=== PATIENT | female | born 1940 | race Caucasian/White ===

== ENCOUNTER 2023-07-26 18:21 | Inpatient (IN) | payer MEDICARE, OTHER, SELFPAY ==
[2023-07-26] VITALS (8 sets, daily range): BP systolic 127–177; BP diastolic 49–110; BMI 40.5; BMI 37.7
[2023-07-26 11:58] LABS: % Basophils 0.8 % (0-2); % Eosinophils 1.4 % (0-6); % Immature Granulocytes 0.2 % (0-0.5); % Lymphocytes 19.5 % (20.5-51.1); % Monocytes 11.7 % (1.7-9.3); % Neutrophils 66.4 % (42.2-75.2); Absolute Basophils 0.1 10^3/uL (0-0.2); Absolute Eosinophils 0.1 10^3/uL (0-0.7); Absolute Lymphocytes 1.7 10^3/uL (1.2-3.4); Absolute Neutrophils 5.7 10^3/uL (1.4-6.5); Hematocrit 35.2 % (37.0-47.0); Mean Corp Hgb Conc. 31.3 g/dL (33.0-37.0); Mean Corpuscular Hgb 26.9 pg (27.0-31.0); Mean Corpuscular Volume 86.1 fL (81.0-99.0); Mean Platelet Volume 12.6 fL (7.4-10.4); Nucleated Red Blood Cells % 0 %; Platelet Count 303 10^3/uL (130-400); Red Blood Cell Count 4.09 10^6/uL (4.20-5.40); Red Cell Dist. Width 15.5 % (11.5-14.5); White Blood Cell Count 8.5 10^3/uL (4.8-10.8)
[2023-07-26 12:12] LABS: ALT (SGPT) 23 U/L (0-35); AST (SGOT) 30 U/L (14-36); Albumin 3.7 g/dl (3.5-5.0); Alkaline Phosphatase 90 U/L (38-126); Blood Urea Nitrogen 24 mg/dl (7-17); Calcium 9.7 mg/dl (8.4-10.2); Carbon Dioxide 21 mmol/L (22-30); Chloride 99 mmol/L (98-107); Glucose 418 mg/dl (70-99); Potassium 4.7 mmol/L (3.5-5.1); Sodium 132 mmol/L (135-145); Total Bilirubin 0.6 mg/dl (0.2-1.3); Total Protein 6.8 g/dl (6.3-8.2); eGFR > 60.00
[2023-07-26 12:37] LABS: APTT 22.1 Sec (23.4-35.0); PT 14.2 Sec (11.4-14.6)
[2023-07-26] MEDS: NSS 1000 IV (13:20)
[2023-07-26] MEDS: PROTONIX IV 80 MG IV (14:38)
--- NOTE | 2023-07-26 14:51 | ED.GENMED ---
History of Present Illness
General
Chief Complaint: Rectal Bleeding
Source: patient and family
Exam Limitations: none
Time Seen by Provider: 07/26/23 12:17
Nursing documentation reviewed up to this point in time: agreed with
Travel History
Have you had any contact with someone who has COVID-19?: No
Do you have any symptoms of coronavirus? Fever > 100 degrees, chills, cough, shortness of breath, sore throat, loss of taste or smell, muscle aches, or headache?: No
History of Present Illness
History of Present Illness:
83-year-old female with past medical history of previous stroke A-fib not currently anticoagulated, hypertension hyperlipidemia previous GI bleeds presenting to the emergency department today with concerns of GI bleeding described as red blood
multiple episodes this morning. Has had some abdominal discomfort mainly to the upper abdomen but also at the left lower quadrant. Has had some mild lightheadedness but denies chest pain shortness of breath.
Past History
Past History
ED Past Medical History: Arrthythmia (Atrial fib), HTN, Hypercholesterolemia and Other ( Microscopic Ulcerative colitis)
Social History
Tobacco: Former smoker
Alcohol: None
Drug: None
Personal:
Living: with family
Employment: Retired
Family History
Family History: Other
Review of Systems
Review of Systems
Allergies reviewed?: Yes
All Other Systems: ROS reviewed and negative except as documented in HPI and ROS
Phy Exam
Physical Exam
Physical Exam:
GENERAL: Alert , in no apparent distress
EYE: pupils equal and reactive
NECK: Supple, no significant adenopathy.
ENT: o/p clr, mmm.
CARDIAC: Regular rate and rhythm .
LUNGS: Clear breath sounds bilaterally, no acute respiratory distress, no wheezes/rales/rhonchi
ABDOMEN: Mild tenderness palpation to the epigastric region as well as left lower quadrant otherwise soft benign abdomen no peritoneal signs no guarding
NEUROLOGICAL: Alert and oriented, no focal neuro deficits
SKIN: Warm and dry, skin intact.
MUSCULOSKELETAL: No edema, well perfused.
PSYCH: Normal and appropriate interaction.
Course
Orders/Labs/Results
Orders:
Orders
07/26/23 11:35
Type+Screen Urgent
Complete Blood Count/With Diff Urgent
Comprehensive Metabolic Panel Urgent
PTT Urgent
Prothrombin Time Urgent
07/26/23 12:40
CT Abd/Pel (IV only)-DH only Urgent
Comment:
Reason For Exam: llq pain rectal bleed
07/26/23 12:41
0.9% Sodium Chloride 1000 ml [Nss] 1,000 ml IV BOLUS
07/26/23 12:56
EKG [Electrocardiogram (*1)] Urgent
Reason for Study: Atrial Fibrillation
EKG- Treatment ONCE
07/26/23 14:24
Pantoprazole [Protonix IV] 80 mg IV NOW STA
Abnormal Lab Results
07/26/23
11:35
RBC 4.09 L 10^6/uL
(4.20-5.40)
Hgb 11.0 L g/dL
(12.0-16.0)
Hct 35.2 L %
(37.0-47.0)
MCH 26.9 L pg
(27.0-31.0)
MCHC 31.3 L g/dL
(33.0-37.0)
RDW 15.5 H %
(11.5-14.5)
MPV 12.6 H fL
(7.4-10.4)
Absolute Monos (auto) 1.0 H 10^3/uL
(0.1-0.6)
Lymphocytes % 19.5 L %
(20.5-51.1)
Monocytes % 11.7 H %
(1.7-9.3)
APTT 22.1 L Sec
(23.4-35.0)
Sodium 132 L mmol/L
(135-145)
Carbon Dioxide 21 L mmol/L
(22-30)
BUN 24 H mg/dl
(7-17)
Glucose 418 H mg/dl
(70-99)
07/26/23 11:35
07/26/23 11:35
Vital Signs
Initial and Last Documented VS:
Initial Vital Signs
Temp Pulse Resp Pulse Ox
98.8 F 88 18 96
07/26/23 11:26 07/26/23 11:26 07/26/23 11:26 07/26/23 11:26
Last Documented Vital Signs
Temp Pulse Resp BP Pulse Ox
98.8 F 101 19 171/81 96
07/26/23 11:26 07/26/23 13:00 07/26/23 13:00 07/26/23 13:00 07/26/23 13:00
MDM/Problems Addressed
MDM/Problems Addressed:
83-year-old female presenting to the emergency department today with concerns of abdominal discomfort and rectal bleeding. She describes multiple bowel movements of red blood this morning. On physical examination she has tarry black stool as well
as red blood mixture. She did have some mild abdominal pain to palpation. CT scan performed without emergent findings or surgical pathology. Will admit considering high risk of ongoing GI bleed at this time
*Critical Care Note
Total Time (30-74mins, 75-104mins- exclusive of procedures): Not Applicable
ED Attending Note
-
Portions of this chart may have been created with voice recognition software.� Occasional wrong word or��sound alike� substitutions may have occurred due to the inherent limitations of voice recognition software.
Discharge Plan
Departure
Patient Disposition: Admit
Date of Disposition: 07/26/23
Time of Disposition: 14:53
Admit to: Med/Surg
Admit to doctor: Nahed
Presentation/result/management discussed w/ accepting MD/DO: Hospitalist
Patient with high blood pressure during this ER visit?: No
Condition: Good
Covid-19: Not Applicable
Discharge Problem:
GI bleed
Prescriptions:
No Action
therapeutic multivitamin Tablet
1 tab PO DAILY
flaxseed oil 1,000 mg Capsule
1,000 mg PO DAILY
cholecalciferol (vitamin D3) [Vitamin D3] 25 mcg (1,000 unit) Capsule
25 mcg PO DAILY
omeprazole 20 mg Tablet,Delayed Release (Dr/Ec)
20 mg PO DAILY
metoprolol succinate 25 mg Tablet Extended Release 24 Hr
25 mg PO DAILY Qty: 30 0RF
aspirin 81 mg tablet,chewable
81 mg PO DAILY Qty: 30 0RF
vitamin B complex Tablet
1 tab PO DAILY
sulfasalazine 500 MG tablet
1,000 mg PO BID
carvedilol 6.25 mg Tablet
12.5 mg PO BID
ferrous sulfate 325 mg (65 mg iron) Tablet
325 mg PO Q48H
coenzyme Q10 [CoQ-10] 100 mg Capsule
200 mg PO DAILY
folic acid 800 mcg Tablet
0.8 mg PO DAILY
meloxicam [Mobic] 15 mg Tablet
15 mg PO DAILY
loperamide 2 mg Tablet
2 mg PO TIDPRN PRN (Reason: diarrhea)
bismuth subsalicylate [Pepto-Bismol] 262 mg Tablet,Chewable
2 tab PO BIDPRN PRN (Reason: diarrhea)
valsartan 160 mg Tablet
80 mg PO BID
PreserVision AREDS 2,148 mcg-113 mg-45 mg-17.4mg Tablet
1 tab PO DAILY
Joint Health 40-10-5-3.3 mg Tablet
1 tab PO DAILY
levothyroxine 75 MCG tablet
75 mcg PO DAILY AT 0700 Qty: 30 0RF
duloxetine 20 MG capsule,delayed release(DR/EC)
20 mg PO BID Qty: 60 0RF
Referrals:
Connor Roman MD [Family Provider] -
Interventions
Interventions:
*Risk Screen - Suicide Last Done: 07/26/23 12:54
*General Assessment Last Done: 07/26/23 12:54
*Neglect/Abuse Screening Last Done: 07/26/23 12:54
*ED COVID-19 Vaccine History Last Done: 07/26/23 12:54
RS-Tajvxw-Ymenlyzxgl Assessment Last Done: 07/26/23 12:54
ED- Cardiac Assessment Last Done: 07/26/23 12:56
ED- Pulmonary Assessment Last Done: 07/26/23 12:54
--- NOTE | 2023-07-26 17:47 | HPS.HSE ---
Family Physician
-
Family Physician: Connor Roman
Chief Complaint
-
Rectal bleeding
History of Present Illness
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 Patient describes dark black with mix of bright red blood with stool and straining prior to
presentation. She denies any dizziness or loss of consciousness. She describes mild epigastric pain prior to presentation which resolved with time of my examination. She denies any nausea or vomiting. Denies hematemesis. She had a rectal tumor
resected in March 2023 without complications. She also has a prior history of hemorrhoids. He is on sulfasalazine maintenance for ulcerative colitis. She resumed Mobic about 2 days prior to this presentation given persistent bilateral shoulder
arthritis.
Upon presentation to the emergency room patient hemodynamically stable.
Rectal examination. EGD reviewed black tarry stool heme positive.
Her hemoglobin was found at 11 which is close to her baseline.
Medical History
Past Medical History
Past Medical History: Reports Arrhythmia, CAD, Hypothyroidism and Other (Ulcerative colitis)
Past Surgical History: Reports Other (Rectal tumor resection)
Social History
Tobacco: Non-smoker
Drug: None
Living: With Family
Employment: Retired
Family History
Family History: Not pertinent
Allergies / Home Medications
Allergies reflects when Allergies were last updated in [employer]
Home Medications with original date entered in [employer]
Allergy/Medication List:
Allergies
Allergy/AdvReac Type Severity Reaction Status Date / Time
adhesive Allergy Rash Verified 03/15/23 08:51
amoxicillin [From Augmentin] Allergy DIARRHEA Verified 03/15/23 08:51
clavulanic acid Allergy DIARRHEA Verified 03/15/23 08:51
[From Augmentin]
hydroxychloroquine Allergy rash/'irregular Verified 03/15/23 08:51
[From Plaquenil] heart
rhythm'
latex Allergy Rash Verified 03/15/23 08:51
leflunomide Allergy Rash Verified 03/15/23 08:51
naproxen [From Naprosyn] Allergy Shortness Verified 03/15/23 08:51
of Breath
nickel Allergy Rash Verified 03/15/23 08:51
Home Medications
duloxetine 20 mg capsule,delayed release 20 mg PO BID #60 caps 08/23/21
levothyroxine 75 mcg tablet 75 mcg PO DAILY AT 0700 #30 tabs 08/23/21
cholecalciferol (vitamin D3) 25 mcg (1,000 unit) capsule (Vitamin D3) 25 mcg PO DAILY Supplement 12/04/22
flaxseed oil 1,000 mg capsule 1,000 mg PO DAILY Supplement 12/04/22
omeprazole 20 mg tablet,delayed release 20 mg PO DAILY Gastrointestinal Issue 12/04/22
therapeutic multivitamin 1 tab PO DAILY Supplement 12/04/22
aspirin 81 mg chewable tablet 81 mg PO DAILY #30 tabs 12/08/22
metoprolol succinate 25 mg tablet,extended release 24 hr 25 mg PO DAILY #30 tabs 12/08/22
carvedilol 6.25 mg tablet 12.5 mg PO BID 03/10/23
coenzyme Q10 100 mg capsule (CoQ-10) 200 mg PO DAILY 03/10/23
ferrous sulfate 325 mg (65 mg iron) tablet 325 mg PO Q48H 03/10/23
sulfasalazine 500 mg tablet 1,000 mg PO BID 03/10/23
vitamin B complex 1 tab PO DAILY 03/10/23
bismuth subsalicylate 262 mg chewable tablet (Pepto-Bismol) 2 tab PO BIDPRN PRN diarrhea 07/26/23
cartilage 40 mg-collagen II 10 mg-boron 5 mg-hyaluronate 3.3 mg tablet ([employer] Health) 1 tab PO DAILY 07/26/23
folic acid 800 mcg tablet 0.8 mg PO DAILY 07/26/23
loperamide 2 mg tablet 2 mg PO TIDPRN PRN diarrhea 07/26/23
meloxicam 15 mg tablet 15 mg PO DAILY 07/26/23
valsartan 160 mg tablet 80 mg PO BID 07/26/23
vitamins A,C,C-ekah-izwvfa 2,148 mcg-113 mg-45 mg-17.4 mg tablet (PreserVision AREDS) 1 tab PO DAILY 07/26/23
Review of Systems
-
A 12 point ROS was completed and negative except as noted: Yes
Abdomen/GI: Reports See HPI
Physical Exam
Vital Signs
Vital Signs
Temp Pulse Resp BP Pulse Ox
98.8 F 100 14 153/110 95
07/26/23 11:26 07/26/23 16:45 07/26/23 16:45 07/26/23 16:00 07/26/23 16:45
Physical Exam
General: Well Developed, Well Nourished and No Apparent Distress
HEENT: NormoCephalic, Moist mucous membranes and Atraumatic
Respiratory: Clear
Cardiac: S1/S2 and Regular Rhythm; No Murmur or Rub
GI: Soft, Non Tender, Non Distended and Normal Bowel Sounds; No Organomegaly
Rectal: Deferred by Provider
Musculoskeletal: No Clubbing, No Cyanosis and No Edema
Skin: No Rash
Neuro: Nonfocal/grossly intact
Laboratory Results
-
07/26/23 11:35
07/26/23 11:35
Laboratory Results
PT 14.2 Sec (11.4-14.6) 07/26/23 11:35
INR 1.10 07/26/23 11:35
APTT 22.1 Sec (23.4-35.0) L 07/26/23 11:35
Total Bilirubin 0.6 mg/dl (0.2-1.3) 07/26/23 11:35
AST 30 U/L (14-36) 07/26/23 11:35
ALT 23 U/L (0-35) 07/26/23 11:35
Alkaline Phosphatase 90 U/L (38-126) 07/26/23 11:35
Impression/Plan
-
IMPRESSION:
Rectal bleeding.
Conditions prior to admission:
Status post rectal tumor resection in March 2023.
Ulcerative colitis on sulfasalazine.
Permanent atrial fibrillation not on anticoagulation.
CAD.
Hypothyroidism on replacement.
PLAN:
Presentation with rectal bleeding.
Hemodynamically stable.
Hemoglobin close to baseline at 11.
BUN 24
Self-limited episode of epigastric pain.
CT scan of the abdomen pelvis with IV contrast only with no acute abnormalities
Differential diagnosis less likely upper GI source, although patient recently resumed Mobic, versus lower GI could not exclude hemorrhoidal bleed with straining, versus other.
Given her hemodynamic stability and hemoglobin at the baseline we will admit for close monitoring.
Serial H&H
Type and cross.
IV PPI Protonix 40 mg IV twice daily.
Gastroenterology consultation.
Hold aspirin
Hold Mobic
Clear liquid diet
Ulcerative colitis
Continue sulfasalazine
Permanent atrial fibrillation.
Rate controlled.
Continue metoprolol with caution for hypotension
Not on anticoagulation given prior history of gastrointestinal hemorrhage.
CAD
Hypertension
Continue metoprolol, continue valsartan.
Continue statin
Hold aspirin
Hypothyroidism on replacement.
Full code.
DVT prophylaxis mechanical.
[2023-07-26] MEDS: TOPROL XL 25 MG PO (18:48)
[2023-07-26 19:26] LABS: Hemoglobin 9.3 g/dL (12.0-16.0)
[2023-07-26] MEDS: DIOVAN 80 MG PO (20:32)
[2023-07-26] MEDS: CYMBALTA DELAYED RELEASE 20 MG PO (20:32)
[2023-07-26] MEDS: NSS (PRESERVATIVE FREE) 10 ML IV (20:33)
[2023-07-26] MEDS: FLUSH (NSS) 1 FLUSH IV (20:33)
[2023-07-26] MEDS: PROTONIX IV 40 MG IV (20:33)
[2023-07-26] MEDS: AZULFIDINE 1000 MG PO (20:33)
[2023-07-26] MEDS: TYLENOL 650 MG PO (23:22)
[2023-07-27 03:27] VITALS: BP 140/64
[2023-07-27] MEDS: SYNTHROID 75 MCG PO (05:38)
[2023-07-27 07:00] VITALS: BP 138/63
--- NOTE | 2023-07-27 07:02 | CON.GI ---
Addendum entered and electronically signed by Pili Pal MD 07/27/23 15:36:
I saw and examined the patient.
The KNOWLEDGE ARCHITECT or PA's note was reviewed and I agree with the note.
Comment: 83-year-old female with history of large tubulovillous adenoma noted on colonoscopy in November 2022 status post transanal excision in February, margins clear without any concerning findings with complete removal presenting with painless
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 3 episodes prior to coming to the emergency room. No previous similar episodes. She does take meloxicam for arthritis symptoms. Reports having around 4 bowel movements on average on a daily
basis but never had bleeding like this. In the emergency room, she was noted to have a hemoglobin of 11.0 on admission and now down to 10.3. CT scan angiogram showing diverticulosis without any evidence of active bleeding.
-Rectal bleeding, with history of diverticulosis and also history of tubulovillous adenoma removed transanally with clear margins.
Flexible sigmoidoscopy today showed no evidence of residual polyp in the rectum.
Likely diverticular bleed though there is no evidence of active bleeding noted during the flexible sigmoidoscopy but limited view without any prep and significant old blood.
Monitor H&H, transfuse if needed
If overt active bleeding again, consider CT angiogram versus a full colonoscopy with prep.
N.p.o. for now, if no further bleeding, okay for clear liquid diet.
Will follow
Original Note:
Consultation
-
Date/Time Consultation Requested: 07/26/230
Date/Time Consultation Performed: 07/27/23 0730
Requesting Provider: Satnam Gardner MD
Performing Provider: JAVIER Brannon, Pili Pal MD
Reason for Consultation: rectal bleeding
Medical History
Chief Complaint / HPI
Chief Complaint: rectal bleeding
History of Present Illness:
The patient is an 83year-old female with a past medical history significant for atrial fibrillation off AC, CVA, hypothyroidism, microscopic colitis and possible hx ulcerative colitis years ago with chronic sulfasalazine use, history of anemia with
prior rectal bleeding. In 2022 she was noted with rectal mass and large rectal polyp on colonoscopy in 11/2022. She completed EUS with Dr. Gregorio with T1 vs T2 staging with some post procedure bleeding. She went for transanal excision in February
with bx TV adenoma and no further treatment needed. She has been off NSAID and last week started Meloxicam. She began 5am 07/26 with onset of rectal bleeding passing red blood with several episode prior to admission then noted red blood about 1/4
cup during consult.
At this time patient also admit to some ongoing upper abdominal fullness since surgery. Worse with bending over and difficulty to say what makes pain better. She typically will have about 5-6 soft stools daily. She denies dysphagia, GERD,
diarrhea, constipation or black stool. Hx EGD years ago. She has chronic anemia with hbg on admission 11.0 with drop to 9.3. 07/26-- CT diverticulosis, atrophic kidneys, atypical but stable spleen, lung nodule.
Past Medical History
Past Medical History: Arrhythmias (afib), CVA, Hypothyroidism and Other (microscopic colitis, rectal mass, large rectal/SC polyp s/p polypectomy )
Past Surgical History: Gynecological (tubal ligation), Orthopedic (right humerus ORIF) and Other (atrial appendage clipping @ [facility], transanal excision with TV polyp 02/2023)
Social History
Tobacco: Former Smoker
Alcohol: None
Drug: None
Living: Alone
Employment: Retired
Family History
Family History: Other (paternal uncle with liver CA)
Allergies / Home Medications
Allergy/AdvReac Type Severity Reaction Status Date / Time
adhesive Allergy Rash Verified 03/15/23 08:51
amoxicillin [From Augmentin] Allergy DIARRHEA Verified 03/15/23 08:51
clavulanic acid Allergy DIARRHEA Verified 03/15/23 08:51
[From Augmentin]
hydroxychloroquine Allergy rash/'irregular Verified 03/15/23 08:51
[From Plaquenil] heart
rhythm'
latex Allergy Rash Verified 03/15/23 08:51
leflunomide Allergy Rash Verified 03/15/23 08:51
naproxen [From Naprosyn] Allergy Shortness Verified 03/15/23 08:51
of Breath
nickel Allergy Rash Verified 03/15/23 08:51
Medication Instructions Recorded
duloxetine 20 mg capsule,delayed 20 mg PO BID #60 caps 08/23/21
release
levothyroxine 75 mcg tablet 75 mcg PO DAILY AT 0700 #30 tabs 08/23/21
cholecalciferol (vitamin D3) 25 25 mcg PO DAILY Supplement 12/04/22
mcg (1,000 unit) capsule (Vitamin
D3)
flaxseed oil 1,000 mg capsule 1,000 mg PO DAILY Supplement 12/04/22
omeprazole 20 mg tablet,delayed 20 mg PO DAILY Gastrointestinal 12/04/22
release Issue
therapeutic multivitamin 1 tab PO DAILY Supplement 12/04/22
aspirin 81 mg chewable tablet 81 mg PO DAILY #30 tabs 12/08/22
metoprolol succinate 25 mg 25 mg PO DAILY #30 tabs 12/08/22
tablet,extended release 24 hr
carvedilol 6.25 mg tablet 12.5 mg PO BID 03/10/23
coenzyme Q10 100 mg capsule 200 mg PO DAILY 03/10/23
(CoQ-10)
ferrous sulfate 325 mg (65 mg 325 mg PO Q48H 03/10/23
iron) tablet
sulfasalazine 500 mg tablet 1,000 mg PO BID 03/10/23
vitamin B complex 1 tab PO DAILY 03/10/23
bismuth subsalicylate 262 mg 2 tab PO BIDPRN PRN diarrhea 07/26/23
chewable tablet (Pepto-Bismol)
cartilage 40 mg-collagen II 10 1 tab PO DAILY 07/26/23
mg-boron 5 mg-hyaluronate 3.3 mg
tablet ([facility])
folic acid 800 mcg tablet 0.8 mg PO DAILY 07/26/23
loperamide 2 mg tablet 2 mg PO TIDPRN PRN diarrhea 07/26/23
meloxicam 15 mg tablet 15 mg PO DAILY 07/26/23
valsartan 160 mg tablet 80 mg PO BID 07/26/23
vitamins A,C,T-pock-yyznai 2,148 1 tab PO DAILY 07/26/23
mcg-113 mg-45 mg-17.4 mg tablet
(PreserVision AREDS)
Review of Systems
-
History Source: Patient
EENT: Reports No Symptoms
Respiratory: Reports No Symptoms
Cardiac: Reports No Symptoms
Abdomen/GI: Reports Abdominal Pain (upper fullness ongoing ) and Bloody Stools
: Reports No Symptoms
Musculoskeletal: Reports Other (arthritis with NSAID use)
Skin: Reports No Symptoms
Neurological: Reports No Symptoms
Endocrine: Reports No Symptoms
Hematologic/Lymphatic: Reports Bleeding
Vital Signs
Temp Pulse Resp BP Pulse Ox
97.8 F 94 18 140/64 95
07/27/23 03:27 07/27/23 03:27 07/27/23 03:27 07/27/23 03:27 07/27/23 03:27
Physical Exam
Exam
General: Well Developed, Well Nourished and No Apparent Distress
HEENT: Normocephalic and Anicteric
Respiratory: Clear
Cardiac: Regular Rhythm
GI: Soft, Non Tender and Non Distended
Rectal: Other (stool in comode with red blood no visible stool about 1/4 cup)
Musculoskeletal: No Clubbing and No Cyanosis
Skin: Warm and Dry
Neuro: Awake, Alert and AO x 3
Psych: Calm
Results
WBC 8.5 10^3/uL (4.8-10.8) 07/26/23 11:35
Hgb 9.3 g/dL (12.0-16.0) L 07/26/23 19:01
Hct 35.2 % (37.0-47.0) L 07/26/23 11:35
MCV 86.1 fL (81.0-99.0) 07/26/23 11:35
Plt Count 303 10^3/uL (130-400) 07/26/23 11:35
Absolute Neuts (auto) 5.7 10^3/uL (1.4-6.5) 07/26/23 11:35
PT 14.2 Sec (11.4-14.6) 07/26/23 11:35
INR 1.10 07/26/23 11:35
APTT 22.1 Sec (23.4-35.0) L 07/26/23 11:35
Sodium 132 mmol/L (135-145) L 07/26/23 11:35
Potassium 4.7 mmol/L (3.5-5.1) 07/26/23 11:35
Chloride 99 mmol/L (98-107) 07/26/23 11:35
Carbon Dioxide 21 mmol/L (22-30) L 07/26/23 11:35
BUN 24 mg/dl (7-17) H 07/26/23 11:35
Creatinine 0.9 mg/dL (0.6-1.0) 07/26/23 11:35
Calcium 9.7 mg/dl (8.4-10.2) 07/26/23 11:35
Total Bilirubin 0.6 mg/dl (0.2-1.3) 07/26/23 11:35
AST 30 U/L (14-36) 07/26/23 11:35
ALT 23 U/L (0-35) 07/26/23 11:35
Alkaline Phosphatase 90 U/L (38-126) 07/26/23 11:35
Diagnostic Image Results:
07/26/23 CT A/P
Limited evaluation of intestinal tract without oral contrast, without intestinal obstruction or free air. Marked sigmoid diverticulosis. Please see above comments.
Unremarkable appendix.
Somewhat atrophic kidneys bilaterally with bilateral nonobstructing calculi.
Simple appearing small right renal cyst.
Stable atypical lobulated appearance the superior aspect of the spleen either representing incidental atypical morphology appearance versus stable isodense mass.
Stable 0.4 cm left lower lobe pulmonary nodule
12/06/22 colonoscopy - salguti� � - Preparation of the colon was fair.
�� � � � � � � � � � � - Moderate diverticulosis in the recto-sigmoid colon,
�� � � � � � � � � � � in the sigmoid colon and in the descending colon.
�� � � � � � � � � � � There was narrowing of the colon in association with
�� � � � � � � � � � � the diverticular opening.
�� � � � � � � � � � � - Stool in the entire examined colon.
�� � � � � � � � � � � - One 15 mm polyp in the distal rectum. Injected.
�� � � � � � � � � � � Biopsied.
�� � � � � � � � � � � - Likely malignant tumor in the distal rectum.
�� � � � � � � � � � � Biopsied.-- retal polyp fragement Tubular adenoma, rectal mass superficial fragment of TV adenoma
12/22/22- rectal EUS- Jg -� � - Preparation of the colon was inadequate.
�� � � � � � � � � � � - Rectal mass was visualized endosonographically. This
�� � � � � � � � � � � was staged T1 vs T2, indeterminate.
�� � � � � � � � � � � - No specimens collected
12/22/22- flex sig Jg �� - Preparation of the colon was inadequate.
�� � � � � � � � � � � - Rectal palpable mass/polyp.
�� � � � � � � � � � � - One 20 mm, bleeding polyp in the distal rectum.
�� � � � � � � � � � � Laterally spreading nodular tumor with dominant
�� � � � � � � � � � � nodule. Biopsied.
�� � � � � � � � � � � - One 15 mm polyp in the sigmoid colon, removed with
�� � � � � � � � � � � mucosal resection. Resected and retrieved.
�� � � � � � � � � � � - Mucosal resection was performed. Resection and
�� � � � � � � � � � � retrieval were complete.
bx Tubular adenoma in sigmoid and fragment of TV adenoma rectal mass
12/23/22 flex sig �[place] - Preparation of the colon was poor.
�� � � � � � � � � � � - Polypoid lesion in the distal rectum. previously
�� � � � � � � � � � � biopsied .
�� � � � � � � � � � � - Old Blood in the rectum and in the sigmoid colon.
�� � � � � � � � � � � - A tattoo was seen in the sigmoid colon close to
�� � � � � � � � � � � polypectomy site. No active bleeding noted
�� � � � � � � � � � � - No specimens collected.
03/15/23 OR sunday �(full-thickness) rectal cancer path tubulovillous adenoma
Assessment / Plan
-
The patient is an 83year-old female with a past medical history significant for atrial fibrillation off AC, CVA, hypothyroidism, microscopic colitis and possible hx ulcerative colitis years ago with chronic sulfasalazine use, history of anemia with
prior rectal bleeding. In 2022 she was noted with rectal mass and large rectal polyp on colonoscopy in 11/2022. She completed EUS with Dr. Gregorio with T1 vs T2 staging with some post procedure bleeding. She went for transanal excision in February
with bx TV adenoma and no further treatment needed. She has been off NSAID and last week started Meloxicam. She began 5am 07/26 with onset of rectal bleeding passing red blood with several episode prior to admission then noted red blood about 1/4
cup during consult.
-rectal bleeding
-hx transanal resection of TV polyp 02/2023
--diverticulosis
-hx microscopic colitis and distant hx UC with chronic mesalamine use
-upper abdominal fullness last few months
-chronic anemia
other medica problems:
-arthritis with recent restart on Meloxicam
-afib off AC
-Hx CVA
-Afib.� Had clipping atrial appendage at [facility]
PLAN:
etiology of rectal bleeding related to diverticular bleeding, recurrence of polyps, hemorrhoids vs other
plan for flex sig today
NPO
trend hbg and stool record
will need OP follow up after discharge -- no current GI follow to review ongoing upper abdominal fullness, chronic Mesalamine use etc
discussed NSAID avoidance with hx microscopic colitis
remains on chronic Sulfasalazine
will follow
-
-
Thank you for consultation and allowing me to participate in the patient's care. Please call the human resources compensation analyst GI physician during the after hours with any questions or concerns.
[2023-07-27] MEDS: TOPROL XL 25 MG PO (08:18)
[2023-07-27] MEDS: AZULFIDINE 1000 MG PO ×2 (08:20→20:43)
[2023-07-27] MEDS: CYMBALTA DELAYED RELEASE 20 MG PO ×2 (08:20→20:44)
[2023-07-27] MEDS: DIOVAN 80 MG PO ×2 (08:20→20:43)
[2023-07-27] MEDS: NSS (PRESERVATIVE FREE) 10 ML IV ×2 (08:20→20:42)
[2023-07-27] MEDS: PROTONIX IV 40 MG IV ×2 (08:20→20:42)
[2023-07-27 09:03] LABS: Hemoglobin 10.3 g/dL (12.0-16.0)
[2023-07-27 09:04] LABS: % Basophils 0.7 % (0-2); % Eosinophils 2.6 % (0-6); % Immature Granulocytes 0.3 % (0-0.5); % Lymphocytes 25.7 % (20.5-51.1); % Monocytes 12.8 % (1.7-9.3); % Neutrophils 57.9 % (42.2-75.2); Absolute Basophils 0.1 10^3/uL (0-0.2); Absolute Eosinophils 0.2 10^3/uL (0-0.7); Absolute Lymphocytes 1.8 10^3/uL (1.2-3.4); Absolute Monocytes 0.9 10^3/uL (0.1-0.6); Absolute Neutrophils 3.9 10^3/uL (1.4-6.5); Hematocrit 31.8 % (37.0-47.0); Mean Corp Hgb Conc. 31.4 g/dL (33.0-37.0); Mean Corpuscular Hgb 27.2 pg (27.0-31.0); Mean Corpuscular Volume 86.4 fL (81.0-99.0); Mean Platelet Volume 12.6 fL (7.4-10.4); Nucleated Red Blood Cells % 0 %; Platelet Count 303 10^3/uL (130-400); Red Blood Cell Count 3.68 10^6/uL (4.20-5.40); Red Cell Dist. Width 15.6 % (11.5-14.5); White Blood Cell Count 6.8 10^3/uL (4.8-10.8)
[2023-07-27 09:33] LABS: Blood Urea Nitrogen 16 mg/dl (7-17); Calcium 9.4 mg/dl (8.4-10.2); Carbon Dioxide 23 mmol/L (22-30); Chloride 105 mmol/L (98-107); Estimated Creatinine Clearance 45 ml/min; Glucose 296 mg/dl (70-99); Potassium 4.7 mmol/L (3.5-5.1); Sodium 134 mmol/L (135-145); eGFR > 60.00
[2023-07-27 11:00] VITALS: BP 126/81
--- NOTE | 2023-07-27 14:11 | W.PN.UPDATE ---
Update Note
Progress Note Update
s/p Flexible sigmoidoscopy for rectal bleeding
- Preparation of the colon was poor.
- Multiple large-mouthed and small-mouthed diverticula were found in the recto-sigmoid colon and sigmoid colon. Large amount of old blood noted but could not visualize for the source of bleeding due to poor visualization from blood.
- Blood in the recto-sigmoid colon and in the sigmoid colon.
- Post-polypectomy scar in the distal rectum.
- No specimens collected.
Plan
- NPO.
- Likely diverticular bleeding
- Continue to monitor BM and H/H.
- Transfuse as needed.
- If overt active bleeding, CTA vs colonoscopy with quick prep.
--- NOTE | 2023-07-27 14:46 | PTCARENOTE ---
Pt back on the floor from GI lab. Pt is a+ox3 in no distress, She was bal eto stand and use walker to the bathroom w/o incident.
[2023-07-27 15:00] VITALS: BP 148/52
--- NOTE | 2023-07-27 17:02 | W.PN.HOSP.TC ---
Today's Communication/Plan
-
Monitor hemoglobin
NPO.
IV fluid maintenance
Assessment / Plan
Assessment / Plan
IMPRESSION:
Rectal bleeding.
Conditions prior to admission:
Status post tubulovillous polyp resection in March 2023.
Ulcerative colitis on sulfasalazine.
Permanent atrial fibrillation not on anticoagulation.
CAD.
Hypothyroidism on replacement.
PLAN:
Presentation with rectal bleeding.
Hemodynamically stable.
Acute anemia secondary to blood loss hemoglobin trending down from 12-10
BUN 24
Self-limited episode of epigastric pain.
CT scan of the abdomen pelvis with IV contrast only with no acute abnormalities
Differential diagnosis less likely upper GI source, although patient recently resumed Mobic, versus lower GI could not exclude hemorrhoidal bleed with straining, versus other.
Sigmoidoscopy 07/27 with diverticulosis and blood in the rectosigmoid colon
Monitor closely following hemoglobin 10
If worsening rectal bleeding, consider CT angiogram.
Type and crossed.
Consent for blood transfusion signed.
Keep n.p.o. for now
IV fluids at maintenance
Ulcerative colitis
Continue sulfasalazine
Permanent atrial fibrillation.
Rate controlled.
Continue metoprolol with caution for hypotension
Not on anticoagulation given prior history of gastrointestinal hemorrhage.
CAD
Hypertension
Continue metoprolol, continue valsartan.
Continue statin
Hold aspirin
Hypothyroidism on replacement.
Full code.
DVT prophylaxis mechanical.
Anticipated Discharge: 24 - 48 hours
Subjective/Interval History
-
Date of Service: July 27, 2023
Objective Data
-
Labs:
Laboratory Results
07/27/23 07/27/23
08:32 08:32
WBC 6.8
Hgb 10.0 L 10.3 L
Hct 31.8 L
Plt Count 303
Sodium 134 L
Potassium 4.7
Chloride 105
Carbon Dioxide 23
BUN 16
Creatinine 0.9
Glucose 296 H
Calcium 9.4
Vital Signs:
Vital Signs
Temp Pulse Resp BP Pulse Ox
97.8 F 84 18 148/52 95
07/27/23 15:00 07/27/23 15:00 07/27/23 15:00 07/27/23 15:00 07/27/23 15:00
I&O
07/26/23 07/27/23 07/28/23
06:59 06:59 06:59
Intake Total 480 / 480
Balance 480 / 480
Physical Exam
-
General: Well Developed and No Apparent Distress
HEENT: Normocephalic, Atraumatic and Moist Mucous Membranes
Respiratory: Clear to Auscultation
Cardiac: Regular Rhythm and S1/S2; Negative Murmur, Rub or Gallop
GI: Soft, Nontender, Nondistended and Normal Bowel Sounds; Negative Organomegaly
Rectal: Deferred by Provider
Musculoskeletal: No Clubbing, No Cyanosis and No Edema
Skin: Negative Rash
Neuro: Nonfocal/Grossly Intact
[2023-07-27 19:30] VITALS: BP 126/46
[2023-07-27] MEDS: D5/0.45%NSS with KCL 20 MEQ 1000 IV (19:55)
[2023-07-27 23:38] VITALS: BP 143/57
[2023-07-28] VITALS (7 sets, daily range): BP systolic 130–156; BP diastolic 51–83
[2023-07-28] MEDS: TYLENOL 650 MG PO ×2 (02:01→21:26)
--- NOTE | 2023-07-28 05:00 | PTCARENOTE ---
Pt had a moderate BM with bright red blood in stool. Pt denies dizziness but states she feels weak which has been going on since her admission here. VSS w/o complaints of pain with call edwards within reach.
[2023-07-28] MEDS: SYNTHROID 75 MCG PO (05:55)
[2023-07-28 08:15] LABS: Blood Urea Nitrogen 14 mg/dl (7-17); Calcium 8.8 mg/dl (8.4-10.2); Carbon Dioxide 20 mmol/L (22-30); Chloride 108 mmol/L (98-107); Estimated Creatinine Clearance 45 ml/min; Glucose 291 mg/dl (70-99); Potassium 4.3 mmol/L (3.5-5.1); Sodium 134 mmol/L (135-145); eGFR > 60.00
[2023-07-28 08:26] LABS: % Basophils 0.7 % (0-2); % Eosinophils 2.5 % (0-6); % Immature Granulocytes 0.3 % (0-0.5); % Lymphocytes 22.9 % (20.5-51.1); % Monocytes 12.6 % (1.7-9.3); Absolute Eosinophils 0.2 10^3/uL (0-0.7); Absolute Lymphocytes 1.4 10^3/uL (1.2-3.4); Absolute Monocytes 0.8 10^3/uL (0.1-0.6); Absolute Neutrophils 3.7 10^3/uL (1.4-6.5); Hematocrit 27.8 % (37.0-47.0); Hemoglobin 8.6 g/dL (12.0-16.0); Mean Corp Hgb Conc. 30.9 g/dL (33.0-37.0); Mean Corpuscular Volume 87.4 fL (81.0-99.0); Mean Platelet Volume 12.1 fL (7.4-10.4); Nucleated Red Blood Cells % 0 %; Platelet Count 268 10^3/uL (130-400); Red Blood Cell Count 3.18 10^6/uL (4.20-5.40); Red Cell Dist. Width 15.6 % (11.5-14.5)
--- NOTE | 2023-07-28 09:11 | W.PN.GI.CBS2 ---
Addendum entered and electronically signed by Lucia Hernández MD 07/28/23 16:21:
I saw and examined the patient.
The DERMATOLOGICAL SURGEON's note was reviewed and I agree with the note.
Comment: Had further bleeding since last night repeat CT angiogram again negative for active bleeding she did have a drop in hemoglobin most likely etiology is diverticular bleed. Continue to monitor hemoglobin and if she does have further active
bleeding then will schedule for colonoscopy. Will start her on clear liquids and hopefully if the bleeding resolves could advance diet tomorrow and possible DC over the weekend and follow-up with Dr. Pal as outpatient
Original Note:
Today's Communication / Plan
-
pt with further rectal bleeding this AM
will order CTA
Assessment / Plan
-
The patient is an 83year-old female with a past medical history significant for atrial fibrillation off AC, CVA, hypothyroidism, microscopic colitis and possible hx ulcerative colitis years ago with chronic sulfasalazine use, history of anemia with
prior rectal bleeding. In 2022 she was noted with rectal mass and large rectal polyp on colonoscopy in 11/2022. She completed EUS with Dr. Gregorio with T1 vs T2 staging with some post procedure bleeding. She went for transanal excision in February
with bx TV adenoma and no further treatment needed. She has been off NSAID and last week started Meloxicam. She began 5am 07/26 with onset of rectal bleeding passing red blood with several episode prior to admission then noted red blood about 1/4
cup during consult.
-rectal bleeding
-hx transanal resection of TV polyp 02/2023
--diverticulosis
-hx microscopic colitis and distant hx UC with chronic mesalamine use
-upper abdominal fullness last few months
-chronic anemia
other medical problems:
-arthritis with recent restart on Meloxicam
-afib off AC
-Hx CVA
-Afib.� Had clipping atrial appendage at [facility]
Flexible sigmoidoscopy 07/27/23, Dr. Pal:
Impression:� � � � � � - Preparation of the colon was poor.
�� � � � � � � � � � � - Diverticulosis in the recto-sigmoid colon and in the
�� � � � � � � � � � � sigmoid colon.
�� � � � � � � � � � � - Blood in the recto-sigmoid colon and in the sigmoid
�� � � � � � � � � � � colon.
�� � � � � � � � � � � - Post-polypectomy scar in the distal rectum.
�� � � � � � � � � � � - No specimens collected.
Recommendation:� � � � - NPO.
�� � � � � � � � � � � - Likely diverticular bleeding
�� � � � � � � � � � � - Continue to monitor BM and H/H.
�� � � � � � � � � � � - Transfuse as needed.
�� � � � � � � � � � � - If overt active bleeding, CTA vs colonoscopy with
�� � � � � � � � � � � quick prep.
PLAN:
-etiology of rectal bleeding related to diverticular bleeding, recurrence of polyps, hemorrhoids vs other
-flex sig yesterday showed diverticulosis, large amount of old blood noted in the sigmoid/rectosigmoid colon, did not identify source of bleeding -- suspected diverticular bleed
-1 more episode of rectal bleeding this AM with bowel movement
-Hgb 8.6 (10.3 yesterday)
-hemodynamically stable
-keep NPO
-to consider colonoscopy - will discuss further with Dr. Hernández - vs CTA
Pt will need OP follow up after discharge -- she has no current GI; to review ongoing upper abdominal fullness, chronic Mesalamine use etc
-discussed NSAID avoidance with hx microscopic colitis
-remains on chronic Sulfasalazine
We will follow
Subjective
Subjective
Date of Service: July 28, 2023
One more episode of rectal bleeding with bowel movement this AM.
-no abd pain, n/v, fever or chills
Objective
Data Reviewed
Laboratory Data:
Laboratory Results
07/28/23 08:16
07/28/23 07:35
Laboratory Results
PT 14.2 Sec (11.4-14.6) 07/26/23 11:35
INR 1.10 07/26/23 11:35
APTT 22.1 Sec (23.4-35.0) L 07/26/23 11:35
Total Bilirubin 0.6 mg/dl (0.2-1.3) 07/26/23 11:35
AST 30 U/L (14-36) 07/26/23 11:35
ALT 23 U/L (0-35) 07/26/23 11:35
Alkaline Phosphatase 90 U/L (38-126) 07/26/23 11:35
Vital Signs and I&O:
Vital Signs
Temp Pulse Resp BP Pulse Ox
97.8 F 83 18 130/83 95
07/28/23 08:15 07/28/23 08:15 07/28/23 08:15 07/28/23 08:15 07/28/23 08:15
I&O
07/27/23 07/28/23 07/29/23
06:59 06:59 06:59
Intake Total 480 / 480
Balance 480 / 480
Physical Exam
Physical Exam
GI: Soft, Non Distended, Non Tender and Normal Bowel Sounds
[2023-07-28] MEDS: NSS (PRESERVATIVE FREE) 10 ML IV ×2 (09:15→19:46)
[2023-07-28] MEDS: PROTONIX IV 40 MG IV ×2 (09:16→19:46)
[2023-07-28] MEDS: AZULFIDINE 1000 MG PO ×2 (09:17→19:45)
[2023-07-28] MEDS: DIOVAN 80 MG PO ×2 (09:17→19:45)
[2023-07-28] MEDS: CYMBALTA DELAYED RELEASE 20 MG PO ×2 (09:17→19:45)
[2023-07-28] MEDS: TOPROL XL 25 MG PO (09:17)
[2023-07-28] MEDS: D5/0.45%NSS with KCL 20 MEQ 1000 IV (09:29)
--- NOTE | 2023-07-28 11:24 | PTCARENOTE ---
Received patient this am AAOx3. Pt NPO with IVF infusing without difficulty. Pt Glucose on am BMP was [address] Alexander made aware. IVF put on hold. Pt offered no complaints. Made pt comfortable. Cont to assess patient status.
[2023-07-28 11:37] LABS: Glucose - Point of Care 269 mg/dl (70-99)
[2023-07-28] MEDS: NSS 1000 IV (12:06)
--- NOTE | 2023-07-28 12:39 | PTCARENOTE ---
Pt refusing insulin at this time. She states 'she isn't diabetic'. Pt advised her blood sugar was over [address] Gardner notified.
--- NOTE | 2023-07-28 13:13 | PN.CDI ---
Addendum entered and electronically signed by Satnam Gardner MD 08/01/23 17:07:
Unable to determine
Original Note:
CDI
- -
CDI:
Physician Documentation Request
Admit Date: 07/26/23 18:21
Dear Doctor Kendra,
Clinical Indicators:
Patient admitted with rectal bleeding.
Home medications include Aspirin 81 mg po daily.
2/2 PN, 'Hold aspirin'
Please clarify if there is a the relationship between the rectal bleeding and aspirin use:
Yes, rectal bleeding is related to/associated with/exacerbated by aspirin use.
No, rectal bleeding is not related to/associated with/exacerbated by aspirin use but it is due to ___. (Please specify)
Unable to determine
Use of terms such as suspected, likely, concern for, or probable (associated with a specific diagnosis that is being evaluated, monitored, or treated as if it exists) are acceptable and can be coded in the inpatient setting, when documented at the
time of discharge.
Thank you,
REINALDO Mcgowan RN
CDI Specialist
available via tiger text
Please use your independent medical judgment in providing your response.
[2023-07-28 16:39] LABS: Glucose - Point of Care 246 mg/dl (70-99)
[2023-07-28] MEDS: NOVOLOG FLEXPEN-LOW RESISTANCE SC (16:44)
--- NOTE | 2023-07-28 17:07 | W.PN.HOSP.TC ---
Today's Communication/Plan
-
CT angiogram with no acute bleeding.
Hemoglobin plateaued at 8.6.
Advance to clear liquid diet
Monitor closely
Assessment / Plan
Assessment / Plan
IMPRESSION:
Rectal bleeding.
Conditions prior to admission:
Status post tubulovillous polyp resection in March 2023.
Ulcerative colitis on sulfasalazine.
Permanent atrial fibrillation not on anticoagulation.
CAD.
Hypothyroidism on replacement.
PLAN:
Presentation with rectal bleeding.
Hemodynamically stable.
Acute anemia secondary to blood loss hemoglobin trending down from 12-10
BUN 24
Self-limited episode of epigastric pain.
CT scan of the abdomen pelvis with IV contrast only with no acute abnormalities
Differential diagnosis less likely upper GI source, although patient recently resumed Mobic, versus lower GI could not exclude hemorrhoidal bleed with straining, versus other.
Sigmoidoscopy 07/27 with diverticulosis and blood in the rectosigmoid colon
Most likely diverticular source.
Hemoglobin trending down to 8.6.
Likely passing remnants of blood.
CT angiogram on 07/28 with no acute bleeding.
Advance to clear liquid diet
Monitor closely
Ulcerative colitis
Continue sulfasalazine
Permanent atrial fibrillation.
Rate controlled.
Continue metoprolol with caution for hypotension
Not on anticoagulation given prior history of gastrointestinal hemorrhage.
CAD
Hypertension
Continue metoprolol, continue valsartan.
Continue statin
Hold aspirin
Hypothyroidism on replacement.
Full code.
DVT prophylaxis mechanical.
Anticipated Discharge: 24 - 48 hours
Subjective/Interval History
-
Date of Service: July 28, 2023
Objective Data
-
Labs:
Laboratory Results
07/28/23 07/28/23
07:35 08:16
WBC Cancelled 6.0
Hgb Cancelled 8.6 L
Hct Cancelled 27.8 L
Plt Count Cancelled 268
Sodium 134 L
Potassium 4.3
Chloride 108 H
Carbon Dioxide 20 L
BUN 14
Creatinine 0.9
Glucose 291 H
Calcium 8.8
Vital Signs:
Vital Signs
Temp Pulse Resp BP Pulse Ox
97.6 F 80 18 156/66 95
07/28/23 16:14 07/28/23 16:14 07/28/23 16:14 07/28/23 16:14 07/28/23 09:00
I&O
07/27/23 07/28/23 07/29/23
06:59 06:59 06:59
Intake Total 480 / 480
Balance 480 / 480
Physical Exam
-
General: Well Developed and No Apparent Distress
HEENT: Normocephalic, Atraumatic and Moist Mucous Membranes
Respiratory: Clear to Auscultation
Cardiac: Regular Rhythm and S1/S2; Negative Murmur, Rub or Gallop
GI: Soft, Nontender, Nondistended and Normal Bowel Sounds; Negative Organomegaly
Rectal: Deferred by Provider
Musculoskeletal: No Clubbing, No Cyanosis and No Edema
Skin: Negative Rash
Neuro: Nonfocal/Grossly Intact
[2023-07-28 21:46] LABS: Glucose - Point of Care 227 mg/dl (70-99)
[2023-07-29] VITALS (11 sets, daily range): BP systolic 113–152; BP diastolic 53–69; PULSE 84–89
[2023-07-29] MEDS: SYNTHROID 75 MCG PO (05:58)
[2023-07-29 07:16] LABS: Glucose - Point of Care 251 mg/dl (70-99)
[2023-07-29 07:28] LABS: % Basophils 0.7 % (0-2); % Eosinophils 3.8 % (0-6); % Immature Granulocytes 0.3 % (0-0.5); % Lymphocytes 21.3 % (20.5-51.1); % Monocytes 12.1 % (1.7-9.3); % Neutrophils 61.8 % (42.2-75.2); Absolute Eosinophils 0.2 10^3/uL (0-0.7); Absolute Lymphocytes 1.2 10^3/uL (1.2-3.4); Absolute Monocytes 0.7 10^3/uL (0.1-0.6); Absolute Neutrophils 3.5 10^3/uL (1.4-6.5); Hematocrit 27.3 % (37.0-47.0); Hemoglobin 8.5 g/dL (12.0-16.0); Mean Corp Hgb Conc. 31.1 g/dL (33.0-37.0); Mean Corpuscular Hgb 27.4 pg (27.0-31.0); Mean Corpuscular Volume 88.1 fL (81.0-99.0); Mean Platelet Volume 12.2 fL (7.4-10.4); Nucleated Red Blood Cells % 0 %; Platelet Count 257 10^3/uL (130-400); Red Cell Dist. Width 15.7 % (11.5-14.5); White Blood Cell Count 5.7 10^3/uL (4.8-10.8)
[2023-07-29] MEDS: NOVOLOG FLEXPEN-LOW RESISTANCE SC (07:50)
[2023-07-29 08:06] LABS: Blood Urea Nitrogen 12 mg/dl (7-17); Calcium 8.6 mg/dl (8.4-10.2); Carbon Dioxide 20 mmol/L (22-30); Chloride 110 mmol/L (98-107); Estimated Creatinine Clearance 51 ml/min; Glucose 233 mg/dl (70-99); Potassium 4.5 mmol/L (3.5-5.1); Sodium 135 mmol/L (135-145); eGFR > 60.00
[2023-07-29] MEDS: TOPROL XL 25 MG PO (08:10)
[2023-07-29] MEDS: DIOVAN 80 MG PO ×2 (08:11→20:27)
[2023-07-29] MEDS: AZULFIDINE 1000 MG PO ×2 (08:11→20:27)
[2023-07-29] MEDS: CYMBALTA DELAYED RELEASE 20 MG PO ×2 (08:11→20:27)
[2023-07-29] MEDS: NSS (PRESERVATIVE FREE) 10 ML IV (08:13)
[2023-07-29] MEDS: PROTONIX IV 40 MG IV (08:13)
[2023-07-29] MEDS: TYLENOL 650 MG PO ×3 (08:14→21:59)
--- NOTE | 2023-07-29 09:38 | W.PN.HOSP.TC ---
Addendum entered and electronically signed by Mayela Del Rosario MD 07/29/23 10:32:
1 unit PRBC for symptomatic anemia
Original Note:
Today's Communication/Plan
-
Hb stable, monitor for signs of GI bleeding
advance diet and assess tolerance
PT/OT and orthostatics
Assessment / Plan
Assessment / Plan
IMPRESSION:
Rectal bleeding.
Conditions prior to admission:
Status post tubulovillous polyp resection in March 2023.
Ulcerative colitis on sulfasalazine.
Permanent atrial fibrillation not on anticoagulation.
CAD.
Hypothyroidism on replacement.
PLAN:
Presentation with rectal bleeding.
Hemodynamically stable.
Acute anemia secondary to blood loss hemoglobin trending down from 12-10 to now 8.5 but stable
BUN 24
Self-limited episode of epigastric pain.
CT scan of the abdomen pelvis with IV contrast only with no acute abnormalities
Differential diagnosis less likely upper GI source, although patient recently resumed Mobic, versus lower GI could not exclude hemorrhoidal bleed with straining, versus other.
Sigmoidoscopy 07/27 with diverticulosis and blood in the rectosigmoid colon
Most likely diverticular source.
Hemoglobin trending down to 8.6.
Likely passing remnants of blood but no bleeding overnight
CT angiogram on 07/28 with no acute bleeding.
Advance to low residue diet
if no further bleeding, possible DC this evening
For lightheadedness/dizziness with standing, suspect related to anemia
- PT/OT evals and orthos
Ulcerative colitis - continue sulfasalazine
Permanent atrial fibrillation.
Rate controlled.
Continue metoprolol with caution for hypotension
Not on anticoagulation given prior history of gastrointestinal hemorrhage.
CAD
Essential hypertension
Continue metoprolol, continue valsartan.
Continue statin
Hold aspirin
Hypothyroidism on replacement.
Full code.
DVT prophylaxis mechanical.
Anticipated Discharge: Within 24 hours
Subjective/Interval History
-
Date of Service: July 29, 2023
no further GI bleeding overnight, seen by GI this AM and cleared for LRD
with ambulation feels a bit lightheaded. No CP or SOB.
agrees with PT/OT evals
Objective Data
-
Labs:
Laboratory Results
07/29/23
07:03
WBC 5.7
Hgb 8.5 L
Hct 27.3 L
Plt Count 257
Sodium 135
Potassium 4.5
Chloride 110 H
Carbon Dioxide 20 L
BUN 12
Creatinine 0.8
Glucose 233 H
Calcium 8.6
Vital Signs:
Vital Signs
Temp Pulse Resp BP Pulse Ox
97.4 F 93 18 134/62 96
07/29/23 07:54 07/29/23 07:54 07/29/23 07:54 07/29/23 07:54 07/29/23 07:54
I&O
07/28/23 07/29/23 07/30/23
06:59 06:59 06:59
Intake Total 480 / 480
Balance 480 / 480
Physical Exam
-
General: No Apparent Distress
HEENT: Normocephalic and Atraumatic
Respiratory: Negative Wheezes
Cardiac: Irregular Rhythm
GI: Soft
Genito-urinary: No Costovertebral Tender
Musculoskeletal: No Edema
Neuro: AO x 3
Psych: Calm
Data Reviewed
-
Total Time Spent with Patient (in minutes): 45
Labs: Labs Reviewed by me
--- NOTE | 2023-07-29 09:45 | W.PN.GI.CBS2 ---
Today's Communication / Plan
-
Low residue diet and if she tolerates and no further bleeding okay to DC home later today
Assessment / Plan
-
The patient is an 83year-old female with a past medical history significant for atrial fibrillation off AC, CVA, hypothyroidism, microscopic colitis and possible hx ulcerative colitis years ago with chronic sulfasalazine use, history of anemia with
prior rectal bleeding. In 2022 she was noted with rectal mass and large rectal polyp on colonoscopy in 11/2022. She completed EUS with Dr. Gregorio with T1 vs T2 staging with some post procedure bleeding. She went for transanal excision in February
with bx TV adenoma and no further treatment needed. She has been off NSAID and last week started Meloxicam. She began 5am 07/26 with onset of rectal bleeding passing red blood with several episode prior to admission then noted red blood about 1/4
cup during consult.
-rectal bleeding
-hx transanal resection of TV polyp 02/2023
--diverticulosis
-hx microscopic colitis and distant hx UC with chronic mesalamine use
-upper abdominal fullness last few months
-chronic anemia
other medical problems:
-arthritis with recent restart on Meloxicam
-afib off AC
-Hx CVA
-Afib.� Had clipping atrial appendage at [facility]
Flexible sigmoidoscopy 07/27/23, Dr. Pal:
Impression:� � � � � � - Preparation of the colon was poor.
�� � � � � � � � � � � - Diverticulosis in the recto-sigmoid colon and in the
�� � � � � � � � � � � sigmoid colon.
�� � � � � � � � � � � - Blood in the recto-sigmoid colon and in the sigmoid
�� � � � � � � � � � � colon.
�� � � � � � � � � � � - Post-polypectomy scar in the distal rectum.
�� � � � � � � � � � � - No specimens collected.
Recommendation:� � � � - NPO.
�� � � � � � � � � � � - Likely diverticular bleeding
�� � � � � � � � � � � - Continue to monitor BM and H/H.
�� � � � � � � � � � � - Transfuse as needed.
�� � � � � � � � � � � - If overt active bleeding, CTA vs colonoscopy with
�� � � � � � � � � � � quick prep.
PLAN:
-etiology of rectal bleeding most likley related to diverticular bleeding
-flex sig showed diverticulosis, large amount of old blood noted in the sigmoid/rectosigmoid colon, did not identify source of bleeding -- suspected diverticular bleed
-No further bleeding since last night repeat CT angiogram again negative for active bleeding she did have a drop in hemoglobin now stable
-Will advance diet to low residue diet and if she tolerates and no further bleeding okay to DC home later today
- follow-up with Dr. Pal as outpatient
Subjective
Subjective
Date of Service: July 29, 2023
Had a bowel movement today no further bleeding, hemoglobin remained stable since yesterday
Objective
Data Reviewed
Laboratory Data:
Laboratory Results
07/29/23 07:03
07/29/23 07:03
Laboratory Results
PT 14.2 Sec (11.4-14.6) 07/26/23 11:35
INR 1.10 07/26/23 11:35
APTT 22.1 Sec (23.4-35.0) L 07/26/23 11:35
Total Bilirubin 0.6 mg/dl (0.2-1.3) 07/26/23 11:35
AST 30 U/L (14-36) 07/26/23 11:35
ALT 23 U/L (0-35) 07/26/23 11:35
Alkaline Phosphatase 90 U/L (38-126) 07/26/23 11:35
Vital Signs and I&O:
Vital Signs
Temp Pulse Resp BP Pulse Ox
97.4 F 93 18 134/62 96
07/29/23 07:54 07/29/23 07:54 07/29/23 07:54 07/29/23 07:54 07/29/23 07:54
I&O
07/28/23 07/29/23 07/30/23
06:59 06:59 06:59
Intake Total 480 / 480
Balance 480 / 480
Physical Exam
Physical Exam
Cardiology: Normal Sinus Rhythm
Pulmonary: Clear
GI: Soft, Non Distended, Non Tender and Normal Bowel Sounds
[2023-07-29 11:03] LABS: Glycohemoglobin (HgbA1c) 12.1 % (4.0-5.6)
[2023-07-29 11:40] LABS: Glucose - Point of Care 318 mg/dl (70-99)
[2023-07-29] MEDS: NOVOLOG FLEXPEN-LOW RESISTANCE 4 UNITS SC (12:25)
[2023-07-29] MEDS: NOVOLOG FLEXPEN 4 UNITS SC ×2 (12:26→17:04)
--- NOTE | 2023-07-29 14:37 | CM ---
Met with patient at bedside; initial assessment completed; case management consult completed
Pharmacy verified: [facility]
IMM explained and signed
Patient reports she lives alone in a one floor home located in a [place] community; 4 steps to enter; her bathroom has a stall shower, shower chair, and grab bar; reports that family lives nearby
PLOF: patient reports that she is independent with ADLs; ambulates with cane or walker only when she goes out of the house
SNF/Rehab utilization: 2019, 2020, and 2022; @ [facility] twice; and had a stay @ [facility]
Plan: Disposition to be determined; patient wants to speak with her daughter; she may go home when discharged or stay with family
Home VN offered, patient declined; no skilled PT recommended
[2023-07-29 16:37] LABS: Glucose - Point of Care 232 mg/dl (70-99)
[2023-07-29] MEDS: NOVOLOG FLEXPEN-LOW RESISTANCE 2 UNITS SC (17:04)
--- NOTE | 2023-07-29 18:00 | PTCARENOTE ---
1 Unit of PRBCs infused, after 15 minutes no apparent signs of a transfusion reaction, vital signs remained stable.
[2023-07-29 21:24] LABS: Glucose - Point of Care 333 mg/dl (70-99)
[2023-07-29] MEDS: LANTUS 0.100000000000000006 UNITS SC (21:59)
[2023-07-29 23:14] LABS: Endomysial IgA Antibody Titer <1:10 (<1:10)
[2023-07-30] VITALS (9 sets, daily range): BP systolic 104–167; BP diastolic 53–92; PULSE 69–102; O2SAT 96–100
[2023-07-30 02:02] LABS: tTG IgA Antibody <1.02 FLU (0.00-4.99)
[2023-07-30] MEDS: SYNTHROID 75 MCG PO (06:22)
[2023-07-30 07:12] LABS: Glucose - Point of Care 233 mg/dl (70-99)
[2023-07-30] MEDS: NOVOLOG FLEXPEN SC ×2 (08:19→08:35)
[2023-07-30] MEDS: NOVOLOG FLEXPEN-LOW RESISTANCE 2 UNITS SC ×2 (08:20→17:32)
[2023-07-30] MEDS: TYLENOL 650 MG PO ×3 (08:20→21:45)
[2023-07-30] MEDS: AZULFIDINE 1000 MG PO ×2 (08:22→21:19)
[2023-07-30] MEDS: PROTONIX 40 MG PO (08:23)
[2023-07-30] MEDS: DIOVAN 80 MG PO ×2 (08:24→21:19)
[2023-07-30] MEDS: CYMBALTA DELAYED RELEASE 20 MG PO ×2 (08:24→21:19)
[2023-07-30] MEDS: TOPROL XL 25 MG PO (08:24)
[2023-07-30] MEDS: NOVOLOG FLEXPEN 7 UNITS SC ×3 (08:35→17:31)
--- NOTE | 2023-07-30 08:43 | W.PN.GI.CBS2 ---
Today's Communication / Plan
-
if repeat HB stable post transfusion then okay to Dc today
Assessment / Plan
-
The patient is an 83year-old female with a past medical history significant for atrial fibrillation off AC, CVA, hypothyroidism, microscopic colitis and possible hx ulcerative colitis years ago with chronic sulfasalazine use, history of anemia with
prior rectal bleeding. In 2022 she was noted with rectal mass and large rectal polyp on colonoscopy in 11/2022. She completed EUS with Dr. Gregorio with T1 vs T2 staging with some post procedure bleeding. She went for transanal excision in February
with bx TV adenoma and no further treatment needed. She has been off NSAID and last week started Meloxicam. She began 5am 07/26 with onset of rectal bleeding passing red blood with several episode prior to admission then noted red blood about 1/4
cup during consult.
-rectal bleeding
-hx transanal resection of TV polyp 02/2023
--diverticulosis
-hx microscopic colitis and distant hx UC with chronic mesalamine use
-upper abdominal fullness last few months
-chronic anemia
other medical problems:
-arthritis with recent restart on Meloxicam
-afib off AC
-Hx CVA
-Afib.� Had clipping atrial appendage at [facility]
Flexible sigmoidoscopy 07/27/23, Dr. Pal:
Impression:� � � � � � - Preparation of the colon was poor.
�� � � � � � � � � � � - Diverticulosis in the recto-sigmoid colon and in the
�� � � � � � � � � � � sigmoid colon.
�� � � � � � � � � � � - Blood in the recto-sigmoid colon and in the sigmoid
�� � � � � � � � � � � colon.
�� � � � � � � � � � � - Post-polypectomy scar in the distal rectum.
�� � � � � � � � � � � - No specimens collected.
Recommendation:� � � � - NPO.
�� � � � � � � � � � � - Likely diverticular bleeding
�� � � � � � � � � � � - Continue to monitor BM and H/H.
�� � � � � � � � � � � - Transfuse as needed.
�� � � � � � � � � � � - If overt active bleeding, CTA vs colonoscopy with
�� � � � � � � � � � � quick prep.
PLAN:
-etiology of rectal bleeding most likley related to diverticular bleeding
-flex sig showed diverticulosis, large amount of old blood noted in the sigmoid/rectosigmoid colon, did not identify source of bleeding -- suspected diverticular bleed
-No further active bleeding old blood in stool yesterday
- repeat CT angiogram was negative for active bleeding she did have a drop in hemoglobin now stable, got 1 Unit PRBC 2/3
- low residue diet and if she tolerates and no further bleeding okay to DC home later today
- follow-up with Dr. Pal as outpatient
Subjective
Subjective
Date of Service: July 30, 2023
Had 1 bowel movement yesterday with old blood in it, no further active bleeding. received 1 unit of packed red blood cells yesterday awaiting repeat hemoglobin today
Objective
Data Reviewed
Laboratory Data:
Laboratory Results
PT 14.2 Sec (11.4-14.6) 07/26/23 11:35
INR 1.10 07/26/23 11:35
APTT 22.1 Sec (23.4-35.0) L 07/26/23 11:35
Total Bilirubin 0.6 mg/dl (0.2-1.3) 07/26/23 11:35
AST 30 U/L (14-36) 07/26/23 11:35
ALT 23 U/L (0-35) 07/26/23 11:35
Alkaline Phosphatase 90 U/L (38-126) 07/26/23 11:35
Vital Signs and I&O:
Vital Signs
Temp Pulse Resp BP Pulse Ox
98 F 84 18 147/75 94
07/30/23 07:47 07/30/23 07:47 07/30/23 07:47 07/30/23 07:47 07/30/23 07:47
I&O
07/29/23 07/30/23 07/31/23
06:59 06:59 06:59
Intake Total 480 / 480 740 / 740
Balance 480 / 480 740 / 740
Physical Exam
Physical Exam
Cardiology: Normal Sinus Rhythm
Pulmonary: Clear
GI: Soft, Non Distended, Non Tender and Normal Bowel Sounds
[2023-07-30 08:47] LABS: Hematocrit 30.8 % (37.0-47.0); Hemoglobin 9.8 g/dL (12.0-16.0); Mean Corp Hgb Conc. 31.8 g/dL (33.0-37.0); Mean Corpuscular Hgb 27.1 pg (27.0-31.0); Mean Corpuscular Volume 85.1 fL (81.0-99.0); Mean Platelet Volume 11.6 fL (7.4-10.4); Platelet Count 288 10^3/uL (130-400); Red Blood Cell Count 3.62 10^6/uL (4.20-5.40); Red Cell Dist. Width 15.9 % (11.5-14.5); White Blood Cell Count 7.5 10^3/uL (4.8-10.8)
[2023-07-30 09:06] LABS: Blood Urea Nitrogen 21 mg/dl (7-17); Calcium 9.6 mg/dl (8.4-10.2); Carbon Dioxide 19 mmol/L (22-30); Chloride 107 mmol/L (98-107); Estimated Creatinine Clearance 51 ml/min; Glucose 243 mg/dl (70-99); Potassium 4.7 mmol/L (3.5-5.1); Sodium 135 mmol/L (135-145); eGFR > 60.00
--- NOTE | 2023-07-30 09:06 | W.PN.UPDATE ---
Update Note
Progress Note Update
Discussed with Dr. Del Rosario her blood sugars have been running high so possible DC if BS better controlled. Will sign off and will be available as needed
--- NOTE | 2023-07-30 09:43 | W.PN.HOSP.TC ---
Today's Communication/Plan
-
Newly diagnosed type 2 DM
- A1c 12
- start basal/bolus regimen and titrate
- TRANSPLANT IMMUNOLOGIST consult and adult educator consult for Monday
bleeding stabilized. GI signed off
Assessment / Plan
Assessment / Plan
IMPRESSION:
Rectal bleeding.
Conditions prior to admission:
Status post tubulovillous polyp resection in March 2023.
Ulcerative colitis on sulfasalazine.
Permanent atrial fibrillation not on anticoagulation.
CAD.
Hypothyroidism on replacement.
PLAN:
Presentation with rectal bleeding.
Acute anemia secondary to blood loss hemoglobin trending down from 12-10 to now 8.5 but stable
BUN 24
Self-limited episode of epigastric pain.
CT scan of the abdomen pelvis with IV contrast only with no acute abnormalities
Differential diagnosis less likely upper GI source, although patient recently resumed Mobic, versus lower GI could not exclude hemorrhoidal bleed with straining, versus other.
Sigmoidoscopy 07/27 with diverticulosis and blood in the rectosigmoid colon
CT angiogram on 07/28 with no acute bleeding.
Most likely diverticular source.
Hemoglobin trending down to 8.6. - gave 1 unit for symptomatic anemia and now Hb 9.8
continue regular diet
GI signed off
For lightheadedness/dizziness with standing, suspect related to anemia but also hyperglycemia
- PT/OT evaluation
Newly diagnosed type 2 DM
- A1c 12
- start basal/bolus regimen and titrate
- TRANSPLANT IMMUNOLOGIST consult and adult educator consult for Monday
Ulcerative colitis - continue sulfasalazine
Permanent atrial fibrillation.
Rate controlled.
Continue metoprolol with caution for hypotension
Not on anticoagulation given prior history of gastrointestinal hemorrhage.
CAD
Essential hypertension
Continue metoprolol, continue valsartan.
Continue statin
Hold aspirin
Hypothyroidism on replacement.
Full code.
DVT prophylaxis mechanical.
Anticipated Discharge: Within 24 hours
Subjective/Interval History
-
Date of Service: July 30, 2023
less lightheaded today, no other complaints
Objective Data
-
Labs:
Laboratory Results
07/30/23
08:37
WBC 7.5
Hgb 9.8 L
Hct 30.8 L
Plt Count 288
Sodium 135
Potassium 4.7
Chloride 107
Carbon Dioxide 19 L
BUN 21 H
Creatinine 0.8
Glucose 243 H
Calcium 9.6
Vital Signs:
Vital Signs
Temp Pulse Resp BP Pulse Ox
98 F 84 18 147/75 94
07/30/23 07:47 07/30/23 07:47 07/30/23 07:47 07/30/23 07:47 07/30/23 08:00
I&O
07/29/23 07/30/23 07/31/23
06:59 06:59 06:59
Intake Total 480 / 480 740 / 740
Balance 480 / 480 740 / 740
Physical Exam
-
General: No Apparent Distress
HEENT: Normocephalic and Atraumatic
Respiratory: Negative Wheezes or Rales
Cardiac: Regular Rhythm and S1/S2
GI: Soft
Genito-urinary: No Costovertebral Tender
Musculoskeletal: No Edema
Neuro: AO x 3
Psych: Calm
Data Reviewed
-
Total Time Spent with Patient (in minutes): 45
Labs: Labs Reviewed by me
--- NOTE | 2023-07-30 10:23 | CM ---
Met with patient yesterday to discuss DC plan. Patient declined offer for home health VN
Disposition to be determined; patient wants to speak with her daughter; she may go home when discharged or stay with family
Per Attending, patient has new onset Diabetes; will meet with childbirth educator tomorrow. Before discharge, good idea to discuss VN follow-up @ home.
[2023-07-30 11:22] LABS: Glucose - Point of Care 309 mg/dl (70-99)
[2023-07-30] MEDS: NOVOLOG FLEXPEN-LOW RESISTANCE 4 UNITS SC (12:23)
[2023-07-30 16:46] LABS: Glucose - Point of Care 215 mg/dl (70-99)
[2023-07-30] MEDS: TYLENOL PO (21:19)
[2023-07-30] MEDS: LANTUS 0.149999999999999994 UNITS SC (21:42)
[2023-07-30 21:43] LABS: Glucose - Point of Care 219 mg/dl (70-99)
[2023-07-31] VITALS (8 sets, daily range): BP systolic 112–148; BP diastolic 52–112; PULSE 75–83
[2023-07-31 01:48] LABS: IgA 317 mg/dl (70-400)
[2023-07-31] MEDS: SYNTHROID 75 MCG PO (06:13)
[2023-07-31 07:20] LABS: Hematocrit 32.4 % (37.0-47.0); Hemoglobin 9.9 g/dL (12.0-16.0); Mean Corp Hgb Conc. 30.6 g/dL (33.0-37.0); Mean Corpuscular Hgb 26.8 pg (27.0-31.0); Mean Corpuscular Volume 87.6 fL (81.0-99.0); Mean Platelet Volume 12.3 fL (7.4-10.4); Platelet Count 324 10^3/uL (130-400); White Blood Cell Count 7.8 10^3/uL (4.8-10.8)
--- NOTE | 2023-07-31 07:36 | PN.DE.MGMTRT ---
Insulin Management
- -
07/31/2023: Diabetes Management Consult
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 PMH includes:A- Fib, CAD, HTN, HLD, Hypothyroidism, Ulcerative colitis and newly
Dx T2DM, A1C 12.1%, Cr 0.9, eGFR>60.
She was started on basal/bolus regimen over the weekend, regimen includes AC NovoLog 7 units and Lantus 15 units @ HS.
Her glucose has remained elevated >200, HS glucose of 219-333, FBG 216 this AM, premeal range 215-309, requiring additional 2-4 units of corrective.
Will increase Lantus to 18 units and AC NovoLog to 10 units, 1st dose now.
States she lives alone but Dtr and Grand-Dtr live near by, she is confident that she will be fine managing her diabetes meds at home
Diabetes History
- -
Type of Diabetes: 2 requiring insulin
Pre-Admission Diabetes Regimen
07/30/23
08:37
Creatinine 0.8
Lab Results
Hemoglobin A1c 12.1 % (4.0-5.6) H 07/29/23 07:03
Insulin Pump Settings
IP Diabetes Regimen
07/30/23 07/30/23 07/30/23
08:37 11:21 16:38
Glucose 243 H
POC Glucose 309 H 215 H
07/30/23
21:42
Glucose
POC Glucose 219 H
Meal type: Lunch
Meal type: Breakfast
Amount consumed: 100%
Amount consumed: 100%
Patient Education
[2023-07-31 07:41] LABS: Glucose - Point of Care 232 mg/dl (70-99)
[2023-07-31 07:47] LABS: Blood Urea Nitrogen 20 mg/dl (7-17); Calcium 9.4 mg/dl (8.4-10.2); Carbon Dioxide 24 mmol/L (22-30); Chloride 108 mmol/L (98-107); Estimated Creatinine Clearance 41 ml/min; Glucose 216 mg/dl (70-99); Potassium 4.9 mmol/L (3.5-5.1); Sodium 136 mmol/L (135-145); eGFR 56.25
[2023-07-31] MEDS: NOVOLOG FLEXPEN 10 UNITS SC ×3 (08:54→17:42)
[2023-07-31] MEDS: NOVOLOG FLEXPEN-LOW RESISTANCE 2 UNITS SC (08:55)
[2023-07-31] MEDS: NOVOLOG FLEXPEN SC (08:55)
[2023-07-31] MEDS: PROTONIX 40 MG PO (08:56)
[2023-07-31] MEDS: DIOVAN 80 MG PO ×2 (08:56→20:20)
[2023-07-31] MEDS: CYMBALTA DELAYED RELEASE 20 MG PO ×2 (08:56→20:21)
[2023-07-31] MEDS: AZULFIDINE 1000 MG PO ×2 (08:57→20:21)
[2023-07-31] MEDS: TOPROL XL 25 MG PO (08:57)
[2023-07-31] MEDS: FLUSH (NSS) 1 FLUSH IV (08:58)
[2023-07-31 11:25] LABS: Glucose - Point of Care 288 mg/dl (70-99)
[2023-07-31] MEDS: NOVOLOG FLEXPEN-LOW RESISTANCE 3 UNITS SC (12:11)
--- NOTE | 2023-07-31 15:57 | W.PN.HOSP.TC ---
Today's Communication/Plan
-
Hemoglobin stable with no further clinical evidence of hemorrhage.
New diagnosis of diabetes. Initiated on insulin. Continue adjust dosing for hyperglycemia
Discharge planing
Assessment / Plan
Assessment / Plan
IMPRESSION:
Rectal bleeding.
Conditions prior to admission:
Status post tubulovillous polyp resection in March 2023.
Ulcerative colitis on sulfasalazine.
Permanent atrial fibrillation not on anticoagulation.
CAD.
Hypothyroidism on replacement.
PLAN:
Presentation with rectal bleeding.
Acute anemia secondary to blood loss hemoglobin trending down from 12-10 to now 8.5 but stable
BUN 24
Self-limited episode of epigastric pain.
CT scan of the abdomen pelvis with IV contrast only with no acute abnormalities
Differential diagnosis less likely upper GI source, although patient recently resumed Mobic, versus lower GI could not exclude hemorrhoidal bleed with straining, versus other.
Sigmoidoscopy 07/27 with diverticulosis and blood in the rectosigmoid colon
CT angiogram on 07/28 with no acute bleeding.
Most likely diverticular source.
Hemoglobin trending down to 8.6. - gave 1 unit for symptomatic anemia and now Hb 9.8
continue regular diet
GI signed off
For lightheadedness/dizziness with standing, suspect related to anemia but also hyperglycemia
- PT/OT evaluation
Newly diagnosed type 2 DM
- A1c 12
- start basal/bolus regimen and titrate
- MEDICAL RECORD LIBR[employer] TEACHER consult and high energy forming equipment operator consult for Monday
Ulcerative colitis - continue sulfasalazine
Permanent atrial fibrillation.
Rate controlled.
Continue metoprolol with caution for hypotension
Not on anticoagulation given prior history of gastrointestinal hemorrhage.
CAD
Essential hypertension
Continue metoprolol, continue valsartan.
Continue statin
Hold aspirin
Hypothyroidism on replacement.
Full code.
DVT prophylaxis mechanical.
Anticipated Discharge: 24 - 48 hours
Subjective/Interval History
-
Date of Service: July 31, 2023
Objective Data
-
Labs:
Laboratory Results
07/31/23
06:13
WBC 7.8
Hgb 9.9 L
Hct 32.4 L
Plt Count 324
Sodium 136
Potassium 4.9
Chloride 108 H
Carbon Dioxide 24
BUN 20 H
Creatinine 1.0
Glucose 216 H
Calcium 9.4
Vital Signs:
Vital Signs
Temp Pulse Resp BP Pulse Ox
98.6 F 69 15 140/66 95
07/31/23 11:58 07/31/23 11:58 07/31/23 11:58 07/31/23 12:15 07/31/23 11:58
I&O
07/30/23 07/31/23 08/01/23
06:59 06:59 06:59
Intake Total 740 / 740 900 / 900
Balance 740 / 740 900 / 900
Physical Exam
-
General: Well Developed and No Apparent Distress
HEENT: Normocephalic, Atraumatic and Moist Mucous Membranes
Respiratory: Clear to Auscultation
Cardiac: Regular Rhythm and S1/S2; Negative Murmur, Rub or Gallop
GI: Soft, Nontender, Nondistended and Normal Bowel Sounds; Negative Organomegaly
Rectal: Deferred by Provider
Musculoskeletal: No Clubbing, No Cyanosis and No Edema
Skin: Negative Rash
Neuro: Nonfocal/Grossly Intact
--- NOTE | 2023-07-31 16:46 | PN.DE ---
Diabetes Education
- -
Diabetes Education-
83 year old female with new T2DM diagnosis, A1C of 11.1%
Met with Vandana, for monitor and insulin instructions. States she lives home alone and is independent with all her ADLs.
Vandana has been provided with the Contour Next Ez glucometer. Reviewed proper testing technique for obtaining a blood glucose, testing pattern given ACHS and expected results as noted in take home education booklet. Discussed action of both rapid
acting and long acting insulins as well as symptoms and treatment of hypoglycemia. Aware for meals to check blood glucose, inject NovoLog (short acting insulin) in stomach and eat in 10-20 minutes and Long acting insulin in outer thigh, rotating
sites. Aware to store insulin pens that are not in use in the refrigerator. Instructions with good return demonstration using the glucometer and insulin pen were noted and result of 254 mg/dl 2 hrs after breakfast. Discussed importance of checking
blood sugars 4x/day to assess food/medication effect on his BS, reducing CHO intake and being active.
States she lives alone and it is hard at times to make the right food choices.
Provided information and handout on outpt education classes and encouraged her to call office and register.
Vandana will need RX for test strips and lancets for the Contour Next Ez glucometer, testing 4x/day, NovoLog and Lantus as well as pen needles at discharge.
All questions and concerns were addressed and answered to her satisfaction.
Will f/u with her tomorrow to reinforce education
[2023-07-31 17:08] LABS: Glucose - Point of Care 190 mg/dl (70-99)
[2023-07-31] MEDS: NOVOLOG FLEXPEN-LOW RESISTANCE 1 UNITS SC (17:43)
[2023-07-31] MEDS: TYLENOL 650 MG PO (20:27)
[2023-07-31 21:28] LABS: Glucose - Point of Care 196 mg/dl (70-99)
[2023-07-31] MEDS: LANTUS 0.179999999999999993 UNITS SC (21:31)
[2023-08-01] VITALS (8 sets, daily range): BP systolic 95–138; BP diastolic 45–88; PULSE 73–95
[2023-08-01] MEDS: SYNTHROID 75 MCG PO (05:52)
[2023-08-01 07:40] LABS: Glucose - Point of Care 194 mg/dl (70-99)
--- NOTE | 2023-08-01 08:29 | PN.DE.MGMTRT ---
Insulin Management
- -
07/31/2023: Diabetes Management Consult
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 PMH includes:A- Fib, CAD, HTN, HLD, Hypothyroidism, Ulcerative colitis and newly
Dx T2DM, A1C 12.1%, Cr 0.9, eGFR>60.
She was started on basal/bolus regimen over the weekend, regimen includes AC NovoLog 7 units and Lantus 15 units @ HS.
Her glucose has remained elevated >200, HS glucose of 219-333, FBG 216 this AM, premeal range 215-309, requiring additional 2-4 units of corrective.
Will increase Lantus to 18 units and AC NovoLog to 10 units, 1st dose now.
States she lives alone but Dtr and Grand-Dtr live near by, she is confident that she will be fine managing her diabetes meds at home
08/01/2023 Diabetes Management Follow up
Patient glucose remains elevated with 10 units novolog AC and 18 units lantus @ HS. Fasting glucose this AM 194. Will increase HS lantus to 20 units and add metformin 500 mg BID. With addition of metformin will not increase AC novolog. Will
reinforce insulin administration and glucose monitor.
Diabetes History
- -
Type of Diabetes: 2
Pre-Admission Diabetes Regimen
Lab Results
Hemoglobin A1c 12.1 % (4.0-5.6) H 07/29/23 07:03
Insulin Pump Settings
IP Diabetes Regimen
07/31/23 07/31/23 07/31/23
11:24 17:06 21:26
POC Glucose 288 H 190 H 196 H
08/01/23
07:38
POC Glucose 194 H
Patient Education
[2023-08-01] MEDS: NOVOLOG FLEXPEN-LOW RESISTANCE 1 UNITS SC ×3 (09:19→17:40)
[2023-08-01] MEDS: NOVOLOG FLEXPEN 10 UNITS SC ×3 (09:20→17:41)
--- NOTE | 2023-08-01 09:20 | PTCARENOTE ---
Diabetes Education- Follow up for glucometer and insulin instructions. Vandana did very well with answering questions regarding when to test blood sugar, where to inject, treatment of hypoglycemia. Not so well in the return demonstration of both the
glucometer and insulin pen. For the glucometer, she required step by step instructions,result 229 mg/dl. She had self injected yesterday with the insulin pen set up for lunch and instructions to set up with dinner (using safety pen needle). The
take home pen needle is different and she needed much practice with verbal cues for its use. She practiced x3, then self injected 11 units Novolog in RUQ at 1015. Then continued practicing x 3 for 15 additional minutes until time to eat her
breakfast, 63 gm CHO, asked her to not eat 2 slices of spanish toast.Step by step insulin pen set up directions written for her to follow. Handout with testing times ([facility]) and insulin given for her to keep track of testing and injecting. She has
poor dietary habits at home as she doesn't enjoy cooking, mostly processed foods, no vegetables/salads. Discussed some ways to eat healthier without ignoring her preference. For example, she currently consumes 8 small ice oatmeal cookies for
breakfast, suggest eating 3 of these cookies and adding yogurt/fruit. Suggest buying some frozen vegetables so she can use as little/much as she likes. Suggest cooking a few chicken breasts to last for a few meals. Updates to ORIANA Bosch who will
continue working on her self injecting. At this point, she doesn't seem ready to be discharged safely.
[2023-08-01] MEDS: GLUCOPHAGE 500 MG PO ×2 (09:21→17:40)
[2023-08-01] MEDS: DIOVAN 80 MG PO ×2 (09:21→20:35)
[2023-08-01] MEDS: AZULFIDINE 1000 MG PO ×2 (09:21→20:35)
[2023-08-01] MEDS: CYMBALTA DELAYED RELEASE 20 MG PO ×2 (09:22→20:35)
[2023-08-01] MEDS: PROTONIX 40 MG PO (09:22)
[2023-08-01] MEDS: TOPROL XL 25 MG PO (09:22)
[2023-08-01 13:07] LABS: Glucose - Point of Care 167 mg/dl (70-99)
--- NOTE | 2023-08-01 16:34 | W.PN.HOSP.TC ---
Today's Communication/Plan
-
Hemoglobin stable.
No further bleeding
Insulin regimen being adjusted daily.
Diabetic teaching.
Discharge planing
Assessment / Plan
Assessment / Plan
IMPRESSION:
Rectal bleeding.
Conditions prior to admission:
Status post tubulovillous polyp resection in March 2023.
Ulcerative colitis on sulfasalazine.
Permanent atrial fibrillation not on anticoagulation.
CAD.
Hypothyroidism on replacement.
PLAN:
Presentation with rectal bleeding.
Acute anemia secondary to blood loss hemoglobin trending down from 12-10 to now 8.5 but stable
BUN 24
Self-limited episode of epigastric pain.
CT scan of the abdomen pelvis with IV contrast only with no acute abnormalities
Differential diagnosis less likely upper GI source, although patient recently resumed Mobic, versus lower GI could not exclude hemorrhoidal bleed with straining, versus other.
Sigmoidoscopy 07/27 with diverticulosis and blood in the rectosigmoid colon
CT angiogram on 07/28 with no acute bleeding.
Most likely diverticular source.
Hemoglobin trending down to 8.6. - gave 1 unit for symptomatic anemia and now Hb 9.8
continue regular diet
GI signed off
For lightheadedness/dizziness with standing, suspect related to anemia but also hyperglycemia
- PT/OT evaluation
Newly diagnosed type 2 DM
- A1c 12
- start basal/bolus regimen and titrate
-Insulin dose being adjusted
� Metformin added.
DM teaching
Ulcerative colitis - continue sulfasalazine
Permanent atrial fibrillation.
Rate controlled.
Continue metoprolol with caution for hypotension
Not on anticoagulation given prior history of gastrointestinal hemorrhage.
CAD
Essential hypertension
Continue metoprolol, continue valsartan.
Continue statin
Hold aspirin
Hypothyroidism on replacement.
Full code.
DVT prophylaxis mechanical.
Anticipated Discharge: 24 - 48 hours
Subjective/Interval History
-
Date of Service: August 01, 2023
Objective Data
-
Vital Signs:
Vital Signs
Temp Pulse Resp BP Pulse Ox
98 F 87 20 124/69 94
08/01/23 15:15 08/01/23 15:15 08/01/23 15:15 08/01/23 15:15 08/01/23 15:15
I&O
07/31/23 08/01/23 08/02/23
06:59 06:59 06:59
Intake Total 900 / 900 360 / 360
Balance 900 / 900 360 / 360
Physical Exam
-
General: Well Developed and No Apparent Distress
HEENT: Normocephalic, Atraumatic and Moist Mucous Membranes
Respiratory: Clear to Auscultation
Cardiac: Regular Rhythm and S1/S2; Negative Murmur, Rub or Gallop
GI: Soft, Nontender, Nondistended and Normal Bowel Sounds; Negative Organomegaly
Rectal: Deferred by Provider
Musculoskeletal: No Clubbing, No Cyanosis and No Edema
Skin: Negative Rash
Neuro: Nonfocal/Grossly Intact
--- NOTE | 2023-08-01 16:58 | CM ---
CM following re: d/c planning
Chart reviewed
Pt discharge anticipated within the next day or two
Pt is a new diabetic and resides alone
Pt has been receiving bed side teaching by the clinical systems educator who will follow until d/c
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
IMM was reviewed and provided to the patient by previous CM
Options for home care agencies to be discussed in hopes of placing a referral via care port
PLAN; home with VN
[2023-08-01 17:29] LABS: Glucose - Point of Care 169 mg/dl (70-99)
--- NOTE | 2023-08-01 17:30 | PTCARENOTE ---
patient self demonstrated checking blood sugar with her meter with minimal cueing. self injected insulin using novolog pen with minimal cueing using written step by step instructions. patient feeling more comfortable with both procedures. plan of
care on going.
[2023-08-01] MEDS: TYLENOL 650 MG PO ×2 (17:51→22:07)
[2023-08-01 21:29] LABS: Glucose - Point of Care 104 mg/dl (70-99)
[2023-08-01] MEDS: LANTUS 0.200000000000000011 UNITS SC (21:45)
[2023-08-02 04:03] VITALS: BP 134/59
[2023-08-02] MEDS: SYNTHROID 75 MCG PO (05:58)
[2023-08-02 07:47] LABS: Glucose - Point of Care 187 mg/dl (70-99)
--- NOTE | 2023-08-02 08:13 | PN.DE.MGMTRT ---
Insulin Management
- -
07/31/2023: Diabetes Management Consult
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 PMH includes:A- Fib, CAD, HTN, HLD, Hypothyroidism, Ulcerative colitis and newly
Dx T2DM, A1C 12.1%, Cr 0.9, eGFR>60.
She was started on basal/bolus regimen over the weekend, regimen includes AC NovoLog 7 units and Lantus 15 units @ HS.
Her glucose has remained elevated >200, HS glucose of 219-333, FBG 216 this AM, premeal range 215-309, requiring additional 2-4 units of corrective.
Will increase Lantus to 18 units and AC NovoLog to 10 units, 1st dose now.
States she lives alone but Dtr and Grand-Dtr live near by, she is confident that she will be fine managing her diabetes meds at home
08/01/2023 Diabetes Management Follow up
Patient glucose remains elevated with 10 units novolog AC and 18 units lantus @ HS. Fasting glucose this AM 194. Will increase HS lantus to 20 units and add metformin 500 mg BID. With addition of metformin will not increase AC novolog. Will
reinforce insulin administration and glucose monitor.
08/02/2023 Diabetes Management Follow up
Glucose remains stable 104 to 169. Will make no change to current regimen, metformin 500 mg BID, lantus 20 units @ hs with novolog 10 units AC. Nursing reports that patient has self administered insulin injections with few verbal cues and
demonstrated SBGM with very few verbal cues. Patient has printed instructions, with pictures, for both insulin pen set up and injection steps and glucose monitor.
Diabetes History
- -
Type of Diabetes: 2 requiring insulin
Pre-Admission Diabetes Regimen
Lab Results
Hemoglobin A1c 12.1 % (4.0-5.6) H 07/29/23 07:03
Insulin Pump Settings
IP Diabetes Regimen
08/01/23 08/01/23 08/01/23
13:06 17:27 21:28
POC Glucose 167 H 169 H 104 H
08/02/23
07:36
POC Glucose 187 H
Meal type: Dinner
Meal type: Lunch
Meal type: Breakfast
Amount consumed: 100%
Amount consumed: 100%
Amount consumed: 100%
Patient Education
[2023-08-02] MEDS: TOPROL XL 25 MG PO (08:19)
[2023-08-02] MEDS: PROTONIX 40 MG PO (08:19)
[2023-08-02] MEDS: GLUCOPHAGE 500 MG PO (08:20)
[2023-08-02] MEDS: DIOVAN 80 MG PO (08:20)
[2023-08-02] MEDS: CYMBALTA DELAYED RELEASE 20 MG PO (08:21)
[2023-08-02] MEDS: FLUSH (NSS) 1 FLUSH IV (08:21)
[2023-08-02] MEDS: AZULFIDINE 1000 MG PO (08:21)
[2023-08-02 08:46] VITALS: BP 118/55
[2023-08-02] MEDS: NOVOLOG FLEXPEN-LOW RESISTANCE 1 UNITS SC (09:12)
[2023-08-02] MEDS: NOVOLOG FLEXPEN 10 UNITS SC ×2 (09:13→12:24)
[2023-08-02 10:44] VITALS: BMI 37.7
[2023-08-02 11:00] VITALS: BP 109/58; BP 124/67; PULSE 79; PULSE 90
[2023-08-02 11:32] LABS: Glucose - Point of Care 232 mg/dl (70-99)
[2023-08-02] MEDS: TYLENOL 650 MG PO (11:48)
[2023-08-02] MEDS: NOVOLOG FLEXPEN-LOW RESISTANCE 2 UNITS SC (12:23)
--- NOTE | 2023-08-02 12:42 | W.DS.TRANS ---
DC Summary - Food Cashier
-
Discharge Instructions:
Sleep Apnea Risk Intermediate
Discharge Diagnosis/Procedures Rectal bleeding
Anemia
DM, new diagnosis
Diet Low Residue
Instructions:
Stand-Alone Forms:
Changes to Home Medications: Yes
Discharge Medications:
DC Medications w/original date entered in [employer]
duloxetine 20 mg capsule,delayed release 20 mg PO BID #60 caps 08/23/21
levothyroxine 75 mcg tablet 75 mcg PO DAILY AT 0700 #30 tabs 08/23/21
cholecalciferol (vitamin D3) 25 mcg (1,000 unit) capsule (Vitamin D3) 25 mcg PO DAILY Supplement 12/04/22
flaxseed oil 1,000 mg capsule 1,000 mg PO DAILY Supplement 12/04/22
omeprazole 20 mg tablet,delayed release 20 mg PO DAILY Gastrointestinal Issue 12/04/22
therapeutic multivitamin 1 tab PO DAILY Supplement 12/04/22
metoprolol succinate 25 mg tablet,extended release 24 hr 25 mg PO DAILY #30 tabs 12/08/22
carvedilol 6.25 mg tablet 12.5 mg PO BID Heart Failure 03/10/23
coenzyme Q10 100 mg capsule (CoQ-10) 200 mg PO DAILY Supplement 03/10/23
ferrous sulfate 325 mg (65 mg iron) tablet 325 mg PO Q48H Supplement 03/10/23
sulfasalazine 500 mg tablet 1,000 mg PO BID Gastrointestinal Issue 03/10/23
vitamin B complex 1 tab PO DAILY Supplement 03/10/23
bismuth subsalicylate 262 mg chewable tablet (Pepto-Bismol) 2 tab PO BIDPRN PRN diarrhea 07/26/23
cartilage 40 mg-collagen II 10 mg-boron 5 mg-hyaluronate 3.3 mg tablet (Channel IQ) 1 tab PO DAILY Supplement 07/26/23
folic acid 800 mcg tablet 0.8 mg PO DAILY Supplement 07/26/23
valsartan 160 mg tablet 80 mg PO BID Blood Pressure 07/26/23
vitamins A,C,R-nlgd-akyopt 2,148 mcg-113 mg-45 mg-17.4 mg tablet (PreserVision AREDS) 1 tab PO DAILY Supplement 07/26/23
blood sugar diagnostic (Contour Next Test Strips) #200 ea 08/01/23
insulin aspart U-100 100 unit/mL (3 mL) subcutaneous pen (Novolog FlexPen U-100 Insulin aspart) 10 unit (0.1 mL) SC AC #5 ea 08/01/23
insulin glargine 100 unit/mL (3 mL) subcutaneous pen (Lantus Solostar U-100 Insulin) 20 unit (0.2 mL) SC HS #5 ea 08/01/23
lancets 21 gauge (Color Lancets) #200 ea 08/01/23
metformin 500 mg tablet 500 mg PO BID@0800,1700 #60 tabs 08/01/23
Home Medication Changes
Insulin and metformin added
Pending Results: No
--- NOTE | 2023-08-02 15:27 | CM ---
CM following re: d/c planning
Chart reviewed
Pt is medically stable for d/c
Pt agreed to home care and referral placed with Erica HENDRICKSON
CM spoke with the patient's daughter Tonya to inform of d/c and home care referral placed which she was happy to hear
Pt is a newly diagnosed diabetic and would benefit from SN visits
IMM was reviewed and copy provided
Patient's daughter & son-in -law to transport patient at time of d/c as she will be staying with them in [place] post d/c
No additional d/c needs to note-- Erica referral accepted
PLAN; d/c home with Erica HENDRICKSON
== END 2023-08-02 15:44 | disposition home health service (06) | DRG 378 ==
LOC: 4 EAST ACU 18:21
PROVIDERS: Emergency Medicine; Internal Medicine; ADMITTING PHYSICIAN Internal Medicine; CONSULT PHYSICIAN Internal Medicine Gastroenterology; EMERGENCY PHYSICIAN Emergency Medicine; FAMILY PHYSICIAN Family Medicine
PROC: 0DJD8ZZ Inspection of Lower Intestinal Tract, Via Natural or Artificial Opening Endoscopic (ICD-10-PCS; 2023-07-27)
PROC: 30233L1 Transfusion of Nonautologous Fresh Plasma into Peripheral Vein, Percutaneous Approach (ICD-10-PCS; 2023-07-29)
DX: K57.31 Diverticulosis of large intestine without perforation or abscess with bleeding (principal); D62 Acute posthemorrhagic anemia; K51.90 Ulcerative colitis, unspecified, without complications; I48.21 Permanent atrial fibrillation; E03.9 Hypothyroidism, unspecified; I25.10 Atherosclerotic heart disease of native coronary artery without angina pectoris; Z86.73 Personal history of transient ischemic attack (TIA), and cerebral infarction without residual deficits; Z87.891 Personal history of nicotine dependence; Z79.82 Long term (current) use of aspirin; E11.65 Type 2 diabetes mellitus with hyperglycemia
CPT/HCPCS: 74174; 74177; 80048; 80053; 82784; 82962; 83036; 83516; 85018; 85025; 85027; 85610; 85730; 86231; 86850; 86900; 86901; 86902; 86920; 86922; 93005; 96374; 97116; 97162; 97165; 97530; 99285; P9016; Q9967

== ENCOUNTER 2024-02-08 22:14 | Inpatient (IN) | payer MEDICARE, OTHER, SELFPAY ==
[2024-02-08 19:13] VITALS: BP 147/76
[2024-02-08 19:46] LABS: PT 15.3 Sec (11.4-14.6)
[2024-02-08 19:47] LABS: APTT 29.1 Sec (23.4-35.0)
[2024-02-08 19:48] LABS: % Basophils 0.6 % (0-2); % Eosinophils 1.6 % (0-6); % Immature Granulocytes 0.6 % (0-0.5); % Lymphocytes 16.1 % (20.5-51.1); % Monocytes 14.7 % (1.7-9.3); % Neutrophils 66.4 % (42.2-75.2); Absolute Basophils 0.1 10^3/uL (0-0.2); Absolute Eosinophils 0.2 10^3/uL (0-0.7); Absolute Immature Granulocytes 0.1 10^3/uL (0-0.05); Absolute Lymphocytes 1.7 10^3/uL (1.2-3.4); Absolute Monocytes 1.6 10^3/uL (0.1-0.6); Absolute Neutrophils 7.2 10^3/uL (1.4-6.5); Hematocrit 23.1 % (37.0-47.0); Hemoglobin 6.2 g/dL (12.0-16.0); Mean Corp Hgb Conc. 26.8 g/dL (33.0-37.0); Mean Corpuscular Volume 70.9 fL (81.0-99.0); Mean Platelet Volume 11.6 fL (7.4-10.4); Nucleated Red Blood Cells % 0.6 %; Platelet Count 290 10^3/uL (130-400); Red Blood Cell Count 3.26 10^6/uL (4.20-5.40); Red Cell Dist. Width 20.4 % (11.5-14.5); White Blood Cell Count 10.8 10^3/uL (4.8-10.8)
[2024-02-08 19:49] LABS: ALT (SGPT) 13 U/L (0-35); AST (SGOT) 26 U/L (14-36); Alkaline Phosphatase 85 U/L (38-126); Blood Urea Nitrogen 30 mg/dl (7-17); Calcium 9.6 mg/dl (8.4-10.2); Carbon Dioxide 21 mmol/L (22-30); Chloride 110 mmol/L (98-107); Glucose 119 mg/dl (70-99); Potassium 4.7 mmol/L (3.5-5.1); Sodium 138 mmol/L (135-145); Total Bilirubin 0.3 mg/dl (0.2-1.3); Total Protein 7.2 g/dl (6.3-8.2); eGFR > 60.00
[2024-02-08 20:05] LABS: Anisocytosis 2+; Hypochromasia 2+; Macrocytosis 1+; Normal RBC Morphology No; Ovalocytes 1+; Tear Drop Red Blood Cells 1+
--- NOTE | 2024-02-08 21:03 | ED.GENMED ---
History of Present Illness
General
Chief Complaint: Abnormal Lab Value
Source: patient
Exam Limitations: none
Time Seen by Provider: 02/08/24 20:32
History of Present Illness
History of Present Illness:
This is a 83 year old female that comes in with c/o abnormal labs. States that she went to the food and beverage manager on Monday for a routine check up. States that she had lab drawn and today she was called and told that her hgb is low. Stats that she is not
on any thinners. States that she is SOB with exertion. Denies a fever, chills, chest pain, abd pain, nausea, vomiting diarrhea, headache, dizziness, urinary burning.
Past History
Past History
ED Past Medical History: Arrthythmia (Atrial fib), HTN, Hypercholesterolemia, NIDDM and Other ( Microscopic Ulcerative colitis, Gi bleeding, diverticulosis, )
ED Past Surgical History: Cardiac ('Clamp')
Social History
Tobacco: Former smoker
Alcohol: None
Drug: None
Personal:
Living: with family
Employment: Retired
Family History
Family History: Other
Review of Systems
Review of Systems
All Other Systems: ROS reviewed and negative except as documented in HPI and ROS
Constitutional: Reports no symptoms; Denies fever or chills
EENT: Reports no symptoms
Respiratory: Reports trouble breathing; Denies cough
Cardiac: Reports no symptoms; Denies chest pain
ABD/GI: Reports no symptoms; Denies abdominal pain, nausea, vomiting, diarrhea, bloody stools or black stools
: Reports no symptoms; Denies dysuria, frequency or urgency
Musculoskeletal: Reports no symptoms
Skin: Reports no symptoms
Neurological: Reports no symptoms; Denies dizzy or headache
Psychiatric: Reports no symptoms
Phy Exam
General Physical Exam
General Presentation: no apparent distress
General age: appears stated age
General Skin: warm, dry and pale
General Habitus: elderly
General Mental: alert
General Hydration: dry mucous membranes
ENT Exam
ENT Exam: TM's normal, pharynx normal and neck supple
Eye Exam
Eye Exam: EOMI
Cardiovascular Exam
Cardiovascular Exam: no edema, normal peripheral pulses and irregularly irregular
Pulmonary Exam
Pulmonary Exam: lungs clear, no respiratory distress, no rales, chest non tender, no crackles, no rhonchi, no wheezing and no cough
Gastrointestinal Exam
Gastrointestinal Exam: normal bowel sounds, non tender, soft, no organomegaly, no pulsatile mass, non distended and other (rectal exam hem negative but nothing really noted in the rectal valt)
Musculoskeletal Exam
Musculoskeletal Exam: full ROM and no edema
Skin Exam
Skin Exam: warm/dry, no rash, no petechia and pallor
Psychiatric Exam
Psychiatric Exam: normal mood/affect
Course
Orders/Labs/Results
Orders:
Orders
02/08/24 19:16
EKG [Electrocardiogram (*1)] Urgent
Reason for Study: Fatigue / Weakness
02/08/24 19:17
EKG- Treatment ONCE
02/08/24 19:26
Type+Screen Urgent
Complete Blood Count/With Diff Urgent
Comprehensive Metabolic Panel Urgent
PTT Urgent
Prothrombin Time Urgent
02/08/24 20:57
* Blood Bank Products Urgent
Blood Bank Products: *Packed RBC Leuko(PRBC's)
Quantity: 2
Transfuse Today: Yes
Reason: Anemia
IV Insert/Care/Rem.- Treatment PRN
Abnormal Lab Results
02/08/24
19:26
RBC 3.26 L 10^6/uL
(4.20-5.40)
Hgb 6.2 L* g/dL
(12.0-16.0)
Hct 23.1 L %
(37.0-47.0)
MCV 70.9 L fL
(81.0-99.0)
MCH 19.0 L pg
(27.0-31.0)
MCHC 26.8 L g/dL
(33.0-37.0)
RDW 20.4 H %
(11.5-14.5)
MPV 11.6 H fL
(7.4-10.4)
Abs Immat Gran (auto) 0.1 H 10^3/uL
(0-0.05)
Absolute Neuts (auto) 7.2 H 10^3/uL
(1.4-6.5)
Absolute Monos (auto) 1.6 H 10^3/uL
(0.1-0.6)
Immature Gran % 0.6 H %
(0-0.5)
Lymphocytes % 16.1 L %
(20.5-51.1)
Monocytes % 14.7 H %
(1.7-9.3)
PT 15.3 H Sec
(11.4-14.6)
Chloride 110 H mmol/L
(98-107)
Carbon Dioxide 21 L mmol/L
(22-30)
BUN 30 H mg/dl
(7-17)
Glucose 119 H mg/dl
(70-99)
02/08/24 19:26
02/08/24 19:26
H/H very low (down almost 4 grams since July), anemia, PT 15.3 with INR 1.20, PTT 29.1 chloride slightly elevated. dehydratioin. Glucose nonfasting.
Vital Signs
Initial and Last Documented VS:
Initial Vital Signs
Temp Pulse Resp BP Pulse Ox
98.6 F 62 16 147/76 95
02/08/24 19:13 02/08/24 19:13 02/08/24 19:13 02/08/24 19:13 02/08/24 19:13
Last Documented Vital Signs
Temp Pulse Resp BP Pulse Ox
98.6 F 62 16 147/76 95
02/08/24 19:13 02/08/24 19:13 02/08/24 19:13 02/08/24 19:13 02/08/24 19:13
MDM/Problems Addressed
Differential Diagnosis Includes:
abnormal labs,
MDM/Problems Addressed:
This is a 83 year old female that comes in with c/o abnormal labs. Patient has blood work done for the food and beverage manager on Monday. Patient was called and told that her Hgb was low. Patient states that she is SOB with activity.
Will check labs. Explained to patient that her Hgb is very low and she will need blood. Will admit patient for further evaluation. Hospitalist notified.
Chronic conditions affecting care:
Gi bleeding, diverticulosis,
Acute Exacerbation and/or Progression of Chronic Illness:
NA
*EKG
Interpreted by ED Provider?: Yes
Heart Rate: 85
Rate: normal
Rhythm: a-fib
[place]: normal axis
QRS Pattern: normal QRS
Ischemia: no ischemia
*Critical Care Note
Total Time (30-74mins, 75-104mins- exclusive of procedures): Not Applicable
ED Attending Note
-
Portions of this chart may have been created with voice recognition software.� Occasional wrong word or��sound alike� substitutions may have occurred due to the inherent limitations of voice recognition software.
Discharge Plan
Departure
Patient Disposition: Admit
Date of Disposition: 02/08/24
Time of Disposition: 21:12
Admit to: Telemetry
Presentation/result/management discussed w/ accepting MD/DO: Hospitalist
Patient with high blood pressure during this ER visit?: Yes
Condition: Good
Covid-19: Not Applicable
Discharge Problem:
Low hemoglobin, Anemia
Prescriptions:
No Action
therapeutic multivitamin Tablet
1 tab PO DAILY
flaxseed oil 1,000 mg Capsule
1,000 mg PO DAILY
cholecalciferol (vitamin D3) [Vitamin D3] 25 mcg (1,000 unit) Capsule
25 mcg PO DAILY
omeprazole 20 mg Tablet,Delayed Release (Dr/Ec)
20 mg PO DAILY
metoprolol succinate 25 mg Tablet Extended Release 24 Hr
25 mg PO DAILY Qty: 30 0RF
vitamin B complex Tablet
1 tab PO DAILY
sulfasalazine 500 MG tablet
1,000 mg PO BID
carvedilol 6.25 mg Tablet
12.5 mg PO BID
ferrous sulfate 325 mg (65 mg iron) Tablet
325 mg PO Q48H
coenzyme Q10 [CoQ-10] 100 mg Capsule
200 mg PO DAILY
folic acid 800 mcg Tablet
0.8 mg PO DAILY
bismuth subsalicylate [Pepto-Bismol] 262 mg Tablet,Chewable
2 tab PO BIDPRN PRN (Reason: diarrhea)
valsartan 160 mg Tablet
80 mg PO BID
PreserVision AREDS 2,148 mcg-113 mg-45 mg-17.4mg Tablet
1 tab PO DAILY
[facility] 40-10-5-3.3 mg Tablet
1 tab PO DAILY
metformin 500 mg Tablet
500 mg PO BID@0800,1700 Qty: 60 0RF
Rx Instructions:
E11.65
(DME) Contour Next Test Strips Strip
Qty: 200 0RF
Rx Instructions:
Test blood sugar before breakfast lunch and dinner and bedtime As Directed
E11.65
insulin aspart U-100 [Novolog FlexPen U-100 Insulin] 100 unit/mL (3 mL) Insulin Pen
10 unit SC AC Qty: 5 0RF
Rx Instructions:
E11.65
insulin glargine [Lantus Solostar U-100 Insulin] 100 unit/mL (3 mL) Insulin Pen
20 unit SC HS Qty: 5 0RF
Rx Instructions:
E11.65
(DME) lancets [Color Lancets] 21 gauge Misc
Qty: 200 0RF
Rx Instructions:
Test blood sugar before breakfast, lunch dinner and bedtime As Directed E11.65
levothyroxine 75 MCG tablet
75 mcg PO DAILY AT 0700 Qty: 30 0RF
duloxetine 20 MG capsule,delayed release(DR/EC)
20 mg PO BID Qty: 60 0RF
Referrals:
Connor Roman MD [Family Provider] -
Interventions
Interventions:
*Risk Screen - Suicide Last Done: 02/08/24 19:13
*Neglect/Abuse Screening Last Done: 02/08/24 19:13
Discharge Date and Time
Print Language: ICELANDIC
[2024-02-08 21:24] VITALS: BP 140/64
--- NOTE | 2024-02-08 21:35 | HPS.HSE ---
Family Physician
-
Family Physician: Connor Roman
Chief Complaint
-
Shortness of breath, outpatient blood anemia
History of Present Illness
83-year-old female complaining of abnormal labs that she had drawn 6 days ago she was sent to the ER for low hemoglobin. In the ER she was noted have hemoglobin of 6.2. She does complain of shortness breath with exertion. She denies fever,
chills, chest pain, abdominal pain, nausea, vomiting diarrhea, headache, urinary symptoms she denies blood in stool or urine.
Past medical history diverticular bleed with acute blood loss anemia, iron deficiency anemia, DM2 new diagnosis July 2023, HTN, RA, ulcerative colitis, permanent A-fib, CAD, hypothyroidism, obesity
Medical History
Past Medical History
Past Medical History: Reports Other
Additional Past Medical History:
diverticular bleed with acute blood loss anemia
GERD
DM2 new diagnosis July 2023
HTN
RA
ulcerative colitis
permanent A-fib
CAD
hypothyroidism
Deficiency anemia history of prior transfusion 2022
CVA June 2020
OA
Past Surgical History: Reports Other
Additional Past Surgical History:
Lumbar spinal fusion
Right thoracotomy
D&C
Bone fusion right wrist
Right humerus fracture repair July 2020
Loop recorder placement
Cataract extraction
Apical appendage clip
Social History
Tobacco: Non-smoker
Alcohol: None
Drug: None
Personal: Single
Living: With Family
Employment: Retired
Family History
Family History: Not pertinent
Allergies / Home Medications
Allergies reflects when Allergies were last updated in [employer].
Home Medications with original date entered in [facility]
Allergy/Medication List:
Allergies
Allergy/AdvReac Type Severity Reaction Status Date / Time
adhesive Allergy Rash Verified 02/08/24 19:13
amoxicillin [From Augmentin] Allergy DIARRHEA Verified 02/08/24 19:13
clavulanic acid Allergy DIARRHEA Verified 02/08/24 19:13
[From Augmentin]
hydroxychloroquine Allergy rash/'irregular Verified 02/08/24 19:13
[From Plaquenil] heart
rhythm'
latex Allergy Rash Verified 02/08/24 19:13
leflunomide Allergy Rash Verified 02/08/24 19:13
naproxen [From Naprosyn] Allergy Shortness Verified 02/08/24 19:13
of Breath
nickel Allergy Rash Verified 02/08/24 19:13
Home Medications
duloxetine 20 mg capsule,delayed release 20 mg PO BID #60 caps 08/23/21
cholecalciferol (vitamin D3) 25 mcg (1,000 unit) capsule (Vitamin D3) 25 mcg PO DAILY Supplement 12/04/22
flaxseed oil 1,000 mg capsule 1,500 mg PO DAILY Supplement 12/04/22
therapeutic multivitamin 1 tab PO DAILY Supplement 12/04/22
metoprolol succinate 25 mg tablet,extended release 24 hr 25 mg PO DAILY #30 tabs 12/08/22
coenzyme Q10 100 mg capsule (CoQ-10) 200 mg PO DAILY Supplement 03/10/23
sulfasalazine 500 mg tablet 1,000 mg PO BID Gastrointestinal Issue 03/10/23
vitamin B complex 1 tab PO DAILY Supplement 03/10/23
cartilage 40 mg-collagen II 10 mg-boron 5 mg-hyaluronate 3.3 mg tablet (eLama) 1 tab PO DAILY Supplement 07/26/23
folic acid 800 mcg tablet 0.8 mg PO DAILY Supplement 07/26/23
valsartan 160 mg tablet 160 mg PO DAILY Blood Pressure 07/26/23
Nervive 1 tab PO DAILY 02/08/24
alpha lipoic acid 100 mg capsule 100 mg PO DAILY 02/08/24
insulin glargine-yfgn 100 unit/mL (3 mL) subcutaneous pen 20 unit SC HS 02/08/24
levothyroxine 75 mcg tablet 75 mcg PO DAILY 02/08/24
magnesium glycinate 600 mg PO DAILY 02/08/24
omeprazole 40 mg capsule,delayed release 40 mg PO DAILY 02/08/24
pregabalin 1 cap PO BID 02/08/24
turmeric 400 mg capsule 500 mg PO DAILY 02/08/24
Review of Systems
-
History Source: Patient and Family
A 12 point ROS was completed and negative except as noted: Yes
Constitutional: Reports Fatigue; Denies Fever
EENT: Denies Sore Throat or Runny Nose
Respiratory: Reports Trouble Breathing; Denies Cough
Cardiac: Denies Chest Pain, Diaphoresis, Palpitations or Syncope
Abdomen/GI: Denies Abdominal Pain, Nausea, Vomiting, Diarrhea, Constipated, Bloody Stools or Black Stools
: Denies Dysuria, Frequency, Flank Pain, Incontinence or Difficulty Voiding
Musculoskeletal: Reports Edema (+2); Denies Joint Pain
Skin: Denies Itching or Rash
Neurological: Denies Dizzy, Headache or Weakness
Endocrine: Reports No Symptoms
Hematologic/Lymphatic: Reports No Symptoms
Psych: Reports Calm
Physical Exam
Vital Signs
Vital Signs
Temp Pulse Resp BP Pulse Ox
98.6 F 74 12 140/64 98
02/08/24 21:24 02/08/24 21:24 02/08/24 21:24 02/08/24 21:24 02/08/24 21:24
Physical Exam
General: Comfortable and Conversant; No Pain or Fever
HEENT: NormoCephalic, Anicteric, PERRLA, [place] Conjunctivae and No Ptosis
Respiratory: Clear; No Wheezes, Rales or Rhonchi
Cardiac: S1/S2, Regular Rhythm and Peripheral Edema (+2); No Murmur, Rub or Gallop
GI: Soft, Non Tender, Non Distended, Normal Bowel Sounds and No Hepatosplenomegaly
Rectal: Deferred by Provider
Genito-urinary: Deferred by me
Musculoskeletal: No Clubbing, No Cyanosis and No Edema
Skin: Warm and Dry; No Rash or Jaundice
Neuro: AO x 3, No Motor Deficits, Nonfocal/grossly intact, Cranial Nerves Intact and No Sensory Deficits; No Slurred Speech, Facial Droop or Tremors
Psych: Calm
Laboratory Results
-
02/08/24 19:26
02/08/24 19:
Laboratory Results
PT 15.3 Sec (11.4-14.6) H 02/08/24 19:
INR 1.20 02/08/24:
APTT 29.1 Sec (23.4-35.0) 02/08/24:
Total Bilirubin 0.3 mg/dl (0.2-1.3) 02/08/24:
AST 26 U/L (14-36) 02/08/24:
ALT 13 U/L (0-35) 02/08/24 19:
Alkaline Phosphatase 85 U/L (38-126) 02/08/24 19:26
Impression/Plan
-
Impression/plan:
Admit to telemetry
#Symptomatic anemia-microcytic likely iron deficiency anemia versus GI bleeding
#History of diverticular bleed July 2023
#Hx iron deficiency anemia with history of transfusion 2022
Hgb 6.2, MCV 70.9
-type and screen, transfuse 2 units PRBC
-stool occult was negative in ER
Check iron panel, B12, folate
-Continue folic acid 0.8 mg p.o. daily
-Consult GI
Consult hematology
-Clear liquid diet
-CBC, BMP in a.m.
#Ulcerative colitis Hx
-Continue sulfasalazine 1000 mg p.o. twice daily
#GERD
-Continue omeprazole 40 mg daily
#HTN�benign
Continue valsartan 160 mg daily with hold parameters
#DM2 new diagnosis July 2023
Accu-Cheks with SSI, check HgbA1c
-Insulin glargine 20 units SQ at bedtime
#HLD
No current meds
#Permanent A-fib
-Not on any AC therapy or aspirin
-Continue metoprolol succinate 25 mg daily
#Hypothyroidism
-Continue levothyroxine
#CVA June 2020
Continue BP control no statins listed
#RA
Continue Lyrica
#Osteoarthritis
Continue vitamin D3
DVT prophylaxis
SCDs
DNR per patient with daughter at bedside
--- NOTE | 2024-02-08 21:45 | HPS.HSE ---
Family Physician
-
Family Physician: Connor Roman
Chief Complaint
-
abn Hgb as Op labs
History of Present Illness
HPI
82F HX rectal mass / polyp, A-Fib, hypertension and recent admission for rectal bleeding sen at ER for OP abnormal low Hgb from blood drawn today at OPcard office;
- associated with dyspnea on exertion
ROS
- Not on any thinners.
- Denies a fever, chills, chest pain, abd pain, nausea, vomiting diarrhea, headache, dizziness, urinary burning.
Medical History
Past Medical History
Past Medical History: Reports Other
Additional Past Medical History:
Permanent Atrial Fibrillation
GERD
Microscopic Colitis
Hypertension
Hypothyroidism
ASCVD with Prior CVA
Colon Polyps
Past Surgical History: Reports Other
Additional Past Surgical History:
Atrial Clip
Right Thoracotomy
Tubal Ligation
Right Humerus ORIF
Social History
Tobacco: Non-smoker
Alcohol: None
Drug: None
Family History
Family History: Not pertinent
Allergies / Home Medications
Allergies reflects when Allergies were last updated in [employer].
Home Medications with original date entered in [employer]
Allergy/Medication List:
Allergies
Allergy/AdvReac Type Severity Reaction Status Date / Time
adhesive Allergy Rash Verified 02/08/24 19:13
amoxicillin [From Augmentin] Allergy DIARRHEA Verified 02/08/24 19:13
clavulanic acid Allergy DIARRHEA Verified 02/08/24 19:13
[From Augmentin]
hydroxychloroquine Allergy rash/'irregular Verified 02/08/24 19:13
[From Plaquenil] heart
rhythm'
latex Allergy Rash Verified 02/08/24 19:13
leflunomide Allergy Rash Verified 02/08/24 19:13
naproxen [From Naprosyn] Allergy Shortness Verified 02/08/24 19:13
of Breath
nickel Allergy Rash Verified 02/08/24 19:13
Home Medications
duloxetine 20 mg capsule,delayed release 20 mg PO BID #60 caps 08/23/21
cholecalciferol (vitamin D3) 25 mcg (1,000 unit) capsule (Vitamin D3) 25 mcg PO DAILY Supplement 12/04/22
flaxseed oil 1,000 mg capsule 1,500 mg PO DAILY Supplement 12/04/22
therapeutic multivitamin 1 tab PO DAILY Supplement 12/04/22
metoprolol succinate 25 mg tablet,extended release 24 hr 25 mg PO DAILY #30 tabs 12/08/22
coenzyme Q10 100 mg capsule (CoQ-10) 200 mg PO DAILY Supplement 03/10/23
sulfasalazine 500 mg tablet 1,000 mg PO BID Gastrointestinal Issue 03/10/23
vitamin B complex 1 tab PO DAILY Supplement 03/10/23
cartilage 40 mg-collagen II 10 mg-boron 5 mg-hyaluronate 3.3 mg tablet (IDINCU) 1 tab PO DAILY Supplement 07/26/23
folic acid 800 mcg tablet 0.8 mg PO DAILY Supplement 07/26/23
valsartan 160 mg tablet 160 mg PO DAILY Blood Pressure 07/26/23
Nervive 1 tab PO DAILY 02/08/24
alpha lipoic acid 100 mg capsule 100 mg PO DAILY 02/08/24
insulin glargine-yfgn 100 unit/mL (3 mL) subcutaneous pen 20 unit SC HS 02/08/24
levothyroxine 75 mcg tablet 75 mcg PO DAILY 02/08/24
magnesium glycinate 600 mg PO DAILY 02/08/24
omeprazole 40 mg capsule,delayed release 40 mg PO DAILY 02/08/24
pregabalin 1 cap PO BID 02/08/24
turmeric 400 mg capsule 500 mg PO DAILY 02/08/24
Review of Systems
-
Constitutional: Reports No Symptoms
EENT: Reports No Symptoms
Respiratory: Reports Trouble Breathing (exertional )
Cardiac: Reports No Symptoms
Abdomen/GI: Reports No Symptoms
: Reports No Symptoms
Musculoskeletal: Reports No Symptoms
Skin: Reports No Symptoms
Neurological: Reports No Symptoms
Endocrine: Reports No Symptoms
Hematologic/Lymphatic: Reports No Symptoms
Psych: Reports No Symptoms
Physical Exam
Vital Signs
Vital Signs
Temp Pulse Resp BP Pulse Ox
98.6 F 74 12 140/64 97
02/08/24 21:24 02/08/24 21:24 02/08/24 21:24 02/08/24 21:24 02/08/24 21:26
Physical Exam
General: Well Developed, Well Nourished and No Apparent Distress
HEENT: NormoCephalic, Moist mucous membranes and Atraumatic
Respiratory: Clear
Cardiac: S1/S2 and Regular Rhythm; No Murmur or Rub
GI: Soft, Non Tender, Non Distended and Normal Bowel Sounds; No Organomegaly
Rectal: Hem Negative (of rectal smear from almost empty vault per ER AP ), Deferred by Provider and Other (almost emty valul )
Musculoskeletal: No Clubbing, No Cyanosis and No Edema
Skin: No Rash
Neuro: Nonfocal/grossly intact
Laboratory Results
-
02/08/24 19:26
02/08/24 19:26
Laboratory Results
PT 15.3 Sec (11.4-14.6) H 02/08/24 19:26
INR 1.20 02/08/24 19:26
APTT 29.1 Sec (23.4-35.0) 02/08/24 19:26
Total Bilirubin 0.3 mg/dl (0.2-1.3) 02/08/24 19:26
AST 26 U/L (14-36) 02/08/24 19:26
ALT 13 U/L (0-35) 02/08/24 19:
Alkaline Phosphatase 85 U/L (38-126) 02/08/24 19:26
Data Reviewed
-
Lab Data: Labs Reviewed by me
Old Records: Reviewed
Impression/Plan
-
Reviewed VS: HR 62 BP 147/76
Data
Hgb 6.2 ( baseline is hi 9s) MCV 70s
Cl 110
CO2 21
BUN 30
Cr 0.9
eGFR > 60
BG 119
unremarkable LFts
EKG
ATRIAL FIBRILLATION
ABNORMAL ECG
WHEN COMPARED WITH ECG OF 26-JUL-2023 13:01,
NONSPECIFIC T WAVE ABNORMALITY NO LONGER EVIDENT IN INFERIOR LEADS
T WAVE INVERSION NO LONGER EVIDENT IN LATERAL LEADS
07/27/23 Flexible Sigmoidoscopy for hematochezia
IMP:
- Preparation of the colon was poor.
- Diverticulosis in the recto-sigmoid colon and in the sigmoid colon.
- Blood in the recto-sigmoid colon and in the sigmoid colon
- Post-polypectomy scar in the distal rectum.
- No specimens collected.
Last hospitalist admission: 07/26/23 - 08/02/23
DXs:
1. Diverticular bleed with acute blood loss anemia.
2. New diagnosis of diabetes.
3. Ulcerative colitis.
4. Permanent atrial fibrillation.
5. Coronary artery disease.
6. Hypothyroidism
ASSESSMENT & PLAN
Pending Rx reconciliation
Acute on chr anemia: hemodynamically stable
Interval microcytosis suspect Fe def
HX ACBLA to rectal bleed probably due to diverticular origin
HX Status post tubulovillous polyp resection in March 2023.
HX Ulcerative colitis on sulfasalazine.
Noted Flex sig as of Jul 2023
- LISBETH by ER AP: NEG HoB but nothing really noted in the rectal vault thus non conclusive
- check Ferritin and Fe studies to consider IV Fe Tx
- T & C, blood consented
- agree with 2 PRBCs
- Clear
- Trend Hgb in AM
- GI consult
- Heme consult
Recently Dxed DM on Insulin
Last hemoglobin A1c was as high as
- on Lantus
- add ISS low
Permanent Atrial Fibrillation
- Had atrial clip placed for stroke risk reduction
- Stable.
- Continue metoprolol
- Not on OAC given history of bleeding issues.
Essential HTN
- cont. Valsartan with hold index
ASCVD
- Prior CVA with some mild residual L sided deficits.
- Holding ASA acutely given active bleeding as noted above.
Hypothyroidism
- Continue T4 supplementation.
Obesity due to excess calories
- Affects all aspects of care.
- Encourage healthy diet and increased activity with goal of weight loss.
DVT Prophylaxis: SCDs
Code Status: DNR
IP TLM
[2024-02-08 22:23] LABS: Iron 36 ug/dl (37-170)
[2024-02-08 22:25] LABS: Percent Saturation 7 % (20-50); Total Iron Binding Capacity 453 ug/dl (265-497)
[2024-02-08 22:50] VITALS: BP 131/59
[2024-02-09] VITALS (14 sets, daily range): BP systolic 123–150; BP diastolic 46–79; PULSE 65–73; O2SAT 93–94; BMI 37.4
--- NOTE | 2024-02-09 00:14 | PTCARENOTE ---
Pt arrived from ED via stretcher and ambulated to bed. Pt is AAOx3, VSS, w/o complaints of pain. Pt is resting comfortably w/ call edwards within reach.
[2024-02-09 00:27] LABS: Ferritin 5.2 ng/ml (11.1-264.0)
[2024-02-09 00:59] LABS: Folate > 20.0 ng/ml (2.76-20); Vitamin B12 893 pg/ml (239-931)
[2024-02-09] MEDS: SYNTHROID 75 MCG PO (06:25)
[2024-02-09] MEDS: PROTONIX 40 MG PO (08:02)
[2024-02-09] MEDS: DIOVAN 160 MG PO (08:02)
[2024-02-09] MEDS: FOLVITE 0.8 MG PO (08:03)
[2024-02-09] MEDS: VITAMIN D3 (cholecalciferol) 25 MCG PO (08:03)
[2024-02-09] MEDS: LYRICA 150 MG PO ×2 (08:03→19:24)
[2024-02-09] MEDS: TOPROL XL 25 MG PO (08:03)
[2024-02-09] MEDS: AZULFIDINE 1000 MG PO ×2 (08:04→19:23)
[2024-02-09] MEDS: B COMPLEX w/VITAMIN C 1 CAPLET PO (08:04)
[2024-02-09] MEDS: CYMBALTA DELAYED RELEASE 20 MG PO ×2 (08:04→19:24)
[2024-02-09 08:19] LABS: Glucose - Point of Care 138 mg/dl (70-99)
[2024-02-09 09:31] LABS: % Basophils 0.8 % (0-2); % Eosinophils 1.7 % (0-6); % Immature Granulocytes 0.6 % (0-0.5); % Lymphocytes 12.3 % (20.5-51.1); % Monocytes 12.1 % (1.7-9.3); % Neutrophils 72.5 % (42.2-75.2); Absolute Basophils 0.1 10^3/uL (0-0.2); Absolute Eosinophils 0.2 10^3/uL (0-0.7); Absolute Immature Granulocytes 0.1 10^3/uL (0-0.05); Absolute Lymphocytes 1.1 10^3/uL (1.2-3.4); Absolute Neutrophils 6.3 10^3/uL (1.4-6.5); Hematocrit 29.7 % (37.0-47.0); Hemoglobin 8.7 g/dL (12.0-16.0); Mean Corp Hgb Conc. 29.3 g/dL (33.0-37.0); Mean Corpuscular Hgb 21.8 pg (27.0-31.0); Mean Corpuscular Volume 74.4 fL (81.0-99.0); Nucleated Red Blood Cells % 0.6 %; Platelet Count 239 10^3/uL (130-400); Red Blood Cell Count 3.99 10^6/uL (4.20-5.40); Red Cell Dist. Width 20.4 % (11.5-14.5); White Blood Cell Count 8.6 10^3/uL (4.8-10.8)
--- NOTE | 2024-02-09 09:35 | CON.ONC ---
Impression
Impression
Symptomatic microcytic anemia
Shortness of breath/dyspnea (improved)
Ulcerative colitis (Sulfasalazine)
GERD on chronic PPI
Afib on ASA
Hx SUELLEN
Hx diverticular bleed
Hx rectal polyps
Plan
Plan
Follow CBC w/ diff daily
02/08 Hgb 8.7, Hct 29.7, MCV 74.4
s/p 2units PRBCs (02/07)
Transfuse PRN to maintain Hgb >7.5
02/07 Iron 36, TIBC 453, %sat 7, ferritin 5.2
IV iron resuscitation ordered x5
B12/folate levels adequate
Continue folic acid supplement daily
Reticulocyte count ordered/pending
GI consulted
Hematest all stools
We will follow.
Patient History
History of Present Illness
Vandana Cowan is a very pleasant 83 year old female who presented to the ER last evening, 02/07, due to abnormal outpatient labs revealing Hgb of 6.2. Her PCP is Dr. Connor Roman who referred her to the ER. She reported associated acute symptoms of
shortness of breath and dyspnea on exertion. Historically, her Hgb has ranged from 9-12. She also has history of SUELLEN. She has required blood products in the past. She has history of Afib but is not managed on AOC due to bleeding issues. She was
hospitalized at the beginning of 2023 for acute diverticular bleed. She underwent flex sigmoidoscopy 07/27/23 which showed diverticulosis of recto-sigmoid colon with evidence of old blood as well as post-polypectomy scar at the distal rectum. She is
frustrated by recurrent anemia. She denies evidence of bloody stools at this time. She denies acute pain, drenching night sweats or unintenteional weight loss. She states she feels improvement of acute symptoms s/p 2units PRBCs yesterday which she
tolerated well.
Past-Medical/Surgical History
Hx diverticular bleed and blood loss anemia (2023)
Iron deficiency anemia
DM 2 (new dx 07/2023)
Atrial fibrillation
Coronary artery disease
Obesity
Hypothyroidism
Hypertension
Rheumatoid arthritis
CVA (2020)
Osteoarthritis
Ulcerative colitis
GERD (chronic PPI use)
Diverticulosis
Rectal polyp resection
Lumbar spinal fusion
Right thoracotomy
Bone fusion right wrist
Right humerus fracture repair (2020)
Loop recorder placement
Cataract extraction
Apical appendage clip
D&C
Patient Medication
�Medication �Instructions �Recorded �Confirmed �Last Taken �Type
duloxetine 20 mg capsule,delayed 20 mg PO BID #60 caps 08/23/21 02/08/24 02/08/24 Rx
release
cholecalciferol (vitamin D3) 25 25 mcg PO DAILY Supplement 12/04/22 02/08/24 02/08/24 History
mcg (1,000 unit) capsule (Vitamin
D3)
flaxseed oil 1,000 mg capsule 1,500 mg PO DAILY Supplement 12/04/22 02/08/24 02/08/24 History
therapeutic multivitamin 1 tab PO DAILY Supplement 12/04/22 02/08/24 02/08/24 History
metoprolol succinate 25 mg 25 mg PO DAILY #30 tabs 12/08/22 02/08/24 02/08/24 Rx
tablet,extended release 24 hr
coenzyme Q10 100 mg capsule 200 mg PO DAILY Supplement 03/10/23 02/08/24 02/08/24 History
(CoQ-10)
sulfasalazine 500 mg tablet 1,000 mg PO BID Gastrointestinal 03/10/23 02/08/24 02/08/24 History
Issue
vitamin B complex 1 tab PO DAILY Supplement 03/10/23 02/08/24 02/08/24 History
cartilage 40 mg-collagen II 10 1 tab PO DAILY Supplement 07/26/23 02/08/24 02/08/24 History
mg-boron 5 mg-hyaluronate 3.3 mg
tablet ([facility])
folic acid 800 mcg tablet 0.8 mg PO DAILY Supplement 07/26/23 02/08/24 02/08/24 History
valsartan 160 mg tablet 160 mg PO DAILY Blood Pressure 07/26/23 02/08/24 02/08/24 History
Nervive 1 tab PO DAILY Supplement 02/08/24 02/08/24 02/08/24 History
alpha lipoic acid 100 mg capsule 100 mg PO DAILY Supplement 02/08/24 02/08/24 02/08/24 History
insulin glargine-yfgn 100 unit/mL 20 unit SC HS diabetes 02/08/24 02/08/24 02/07/24 History
(3 mL) subcutaneous pen
levothyroxine 75 mcg tablet 75 mcg PO DAILY Thyroid 02/08/24 02/08/24 02/08/24 History
magnesium glycinate 600 mg PO DAILY Supplement 02/08/24 02/08/24 02/08/24 History
omeprazole 40 mg capsule,delayed 40 mg PO DAILY Gastrointestinal 02/08/24 02/08/24 History
release Issue
pregabalin 1 cap PO BID Neurological Condition 02/08/24 02/08/24 02/08/24 History
turmeric 400 mg capsule 500 mg PO DAILY Supplement 02/08/24 02/08/24 02/08/24 History
Active Medications
Generic Name Dose Route Start Last Admin
Trade Name Freq PRN Reason Stop Dose Admin
Cholecalciferol 25 mcg 02/09/24 08:00 02/09/24 08:03
Cholecalciferol (Vitamin D3) 25 Mcg Tablet (1,000 Units) PO 03/08/24 07:59 25 mcg
DAILY LOIS Administration
Dextrose 12.5 grams 02/09/24 00:10
Dextrose 50% (0.5 Grams/Ml) 50 Ml Syringe IV 03/08/24 00:09
[id number] PRN
hypoglycemia
Protocol
Duloxetine HCl 20 mg 02/09/24 08:00 02/09/24 08:04
Duloxetine Delayed Release 20 Mg Capsule PO 03/08/24 07:59 20 mg
BID LOIS Administration
Folic Acid 0.8 mg 02/09/24 08:00 02/09/24 08:03
Folic Acid 0.4 Mg Tablet PO 03/08/24 07:59 0.8 mg
DAILY LOIS Administration
Glucagon 1 mg 02/09/24 00:10
Glucagon 1 Mg Vial IM 03/08/24 00:09
PRN PRN
hypoglycemia
Protocol
Insulin Aspart 0 units 02/09/24 07:30 02/09/24 08:47
Insulin Aspart Low Resistance 300 Units/3 Ml Pen.Injctr SC 03/08/24 07:29 Not Given
AC LOIS
Protocol
Levothyroxine Sodium 75 mcg 02/09/24 06:00 02/09/24 06:25
Levothyroxine 75 Mcg Tablet PO 03/08/24 05:59 75 mcg
DAILY @ 0600 LOIS Administration
Metoprolol Succinate 25 mg 02/09/24 08:00 02/09/24 08:03
Metoprolol 25 Mg Extended Release Tablet PO 03/08/24 07:59 25 mg
DAILY LOIS Administration
Pantoprazole Sodium 40 mg 02/09/24 08:00 02/09/24 08:02
Pantoprazole 40 Mg Delayed Release Tablet PO 03/08/24 07:59 40 mg
DAILY LOIS Administration
Pregabalin 150 mg 02/09/24 08:00 02/09/24 08:03
Pregabalin 75 Mg Capsule PO 03/08/24 07:59 150 mg
BID LOIS Administration
Sodium Chloride 0 flush 02/08/24 22:00
Sodium Chloride 0.9% (Flush) Syringe IV 03/07/24 21:59
PER PROTOCOL LOIS
Sulfasalazine 1,000 mg 02/09/24 08:00 02/09/24 08:04
Sulfasalazine 500 Mg Tablet PO 02/19/24 07:59 1,000 mg
BID LOIS Administration
Valsartan 160 mg 02/09/24 08:00 02/09/24 08:02
Valsartan 80 Mg Tablet PO 03/08/24 07:59 160 mg
DAILY LOIS Administration
Vitamin B Complex/Vitamin C 1 caplet 02/09/24 08:00 02/09/24 08:04
Vitamin B Complex With Vitamin C Caplet PO 03/08/24 07:59 1 caplet
DAILY LOIS Administration
Review of Systems
-
History Source: Patient, Coordinated Provider and Records
Constitutional: Reports No Symptoms
EENT: Reports No Symptoms
Respiratory: Reports No Symptoms
Cardiac: Reports No Symptoms
GI: Reports No Symptoms
Breast: Reports N/A
: Reports No Symptoms
Musculoskeletal: Reports No Symptoms
Skin: Reports No Symptoms
Neuro: Reports No Symptoms
Endocrine: Reports No Symptoms
Hematologic/Lymphatic: Reports No Symptoms
Allergy / Immunology: Reports No Symptoms
Psych: Reports No Symptoms
Physical Exam
-
Patient OOB to the chair. She notes improvement of acute shortness of breath. She states she was able to ambulate to the bathroom with PT and did not experience breathlessness. She had BM this morning. Denies BRBPR.
General: Well Developed, Well Nourished, No Apparent Distress, Comfortable, Conversant and Obese; Negative Respiratory Distress, Pain, Fever, Chills or Sweats
HEENT: Negative Jaundice
GI: Soft and Normal Bowel Sounds
Neurology: Non Focal
Skin: Warm, Dry and Other (mild pallor)
Psych: Calm
Labs
Lab Results
WBC 8.6 10^3/uL (4.8-10.8) 02/09/24 08:44
RBC 3.99 10^6/uL (4.20-5.40) L 02/09/24 08:44
Hgb 8.7 g/dL (12.0-16.0) L D 02/09/24 08:44
Hct 29.7 % (37.0-47.0) L 02/09/24 08:44
MCV 74.4 fL (81.0-99.0) L 02/09/24 08:44
MCH 21.8 pg (27.0-31.0) L 02/09/24 08:44
MCHC 29.3 g/dL (33.0-37.0) L 02/09/24 08:44
RDW 20.4 % (11.5-14.5) H 02/09/24 08:44
Plt Count 239 10^3/uL (130-400) 02/09/24 08:44
MPV Not Reportable 02/09/24 08:44
Abs Immat Gran (auto) 0.1 10^3/uL (0-0.05) H 02/09/24 08:44
Absolute Neuts (auto) 6.3 10^3/uL (1.4-6.5) 02/09/24 08:44
Absolute Lymphs (auto) 1.1 10^3/uL (1.2-3.4) L 02/09/24 08:44
Absolute Monos (auto) 1.0 10^3/uL (0.1-0.6) H 02/09/24 08:44
Absolute Eos (auto) 0.2 10^3/uL (0-0.7) 02/09/24 08:44
Absolute Basos (auto) 0.1 10^3/uL (0-0.2) 02/09/24 08:44
Immature Gran % 0.6 % (0-0.5) H 02/09/24 08:44
Neutrophils % 72.5 % (42.2-75.2) 02/09/24 08:44
Lymphocytes % 12.3 % (20.5-51.1) L 02/09/24 08:44
Monocytes % 12.1 % (1.7-9.3) H 02/09/24 08:44
Eosinophils % 1.7 % (0-6) 02/09/24 08:44
Basophils % 0.8 % (0-2) 02/09/24 08:44
Creatinine 0.9 mg/dL (0.6-1.0) 02/08/24 19:26
Vital Signs
Vital Signs
Temp Pulse Resp BP Pulse Ox
97.7 F 84 20 136/79 95
02/09/24 08:01 02/09/24 08:02 02/09/24 08:01 02/09/24 08:02 02/09/24 08:01
[2024-02-09 10:01] LABS: ALT (SGPT) 13 U/L (0-35); AST (SGOT) 26 U/L (14-36); Albumin 3.8 g/dl (3.5-5.0); Alkaline Phosphatase 94 U/L (38-126); Blood Urea Nitrogen 24 mg/dl (7-17); Calcium 9.5 mg/dl (8.4-10.2); Carbon Dioxide 21 mmol/L (22-30); Chloride 110 mmol/L (98-107); Estimated Creatinine Clearance 49 ml/min; Glucose 132 mg/dl (70-99); Potassium 4.5 mmol/L (3.5-5.1); Sodium 140 mmol/L (135-145); Total Bilirubin 0.8 mg/dl (0.2-1.3); Total Protein 7.1 g/dl (6.3-8.2); eGFR > 60.00
--- NOTE | 2024-02-09 10:29 | CON.GI ---
Addendum entered and electronically signed by Travis Coker MD 02/09/24 14:34:
I saw and examined the patient.
The AUTOMOBILE APPRAISER's note was reviewed and I agree with the note.
Acute on chronic anemia. No overt GI bleeding. Occult blood test in ED was negative
UC-in remission for many years. On sulfasalazine
plan
Okay to advance diet
No acute GI intervention at this point with no overt or occult bleeding
Hematology consultation reviewed. Continue iron supplementation
Recommend follow-up with Dr. Pal as outpatient. Completion of GI workup for anemia ( EGD/ VCE ) as outpatient
No further recommendation at this point. Will sign off
Original Note:
Medical History
Chief Complaint / HPI
History of Present Illness:
Patient is a 83 year old female with past medical history of U/C (diagnosed in 1994, on sulfasalazine), sigmoid tubular adenoma, rectal tubulovillous adenoma, GERD, hypothyroidism, diverticular bleeding, permanent A-fib (not on anticoagulants due to
risk of bleeding), diabetes and CVA who was referred to the ER by her PCP due to low hemoglobin of 6.2 on outpatient labs. She denies any chest pain, lightheadedness/dizziness. She does have exertional dyspnea which which has been going on for the
past year. She also mentions a poor appetite and losing 10 pounds since July. Patient denies any hematochezia, hematemesis, or melena. Occult blood in ED was negative
She underwent flex sigmoidoscopy 07/27/23 which showed diverticulosis of recto-sigmoid colon with evidence of old blood as well as post-polypectomy scar at the distal rectum. She went for transanal excision last February with bx TV adenoma and no
further treatment needed.
Past Medical History
Past Medical History: Arrhythmias, CVA, GERD, HTN, Hypothyroidism and Other (U/C, sigmoid polyp (Tubular adenoma) rectal polyp (tubulovillous adenoma), diverticulosis, microscopic colitis)
Past Surgical History: Other (Atrial Clip, Right Thoracotomy, Tubal Ligation, Right Humerus, ORIF)
Social History
Tobacco: Non-Smoker
Alcohol: None
Drug: None
Family History
Family History: Reviewed & Not Pertinent
Allergies / Home Medications
Allergy/AdvReac Type Severity Reaction Status Date / Time
adhesive Allergy Rash Verified 02/08/24 19:13
amoxicillin [From Augmentin] Allergy DIARRHEA Verified 02/08/24 19:13
clavulanic acid Allergy DIARRHEA Verified 02/08/24 19:13
[From Augmentin]
hydroxychloroquine Allergy rash/'irregular Verified 02/08/24 19:13
[From Plaquenil] heart
rhythm'
latex Allergy Rash Verified 02/08/24 19:13
leflunomide Allergy Rash Verified 02/08/24 19:13
naproxen [From Naprosyn] Allergy Shortness Verified 02/08/24 19:13
of Breath
nickel Allergy Rash Verified 02/08/24 19:13
�Medication �Instructions �Recorded
duloxetine 20 mg capsule,delayed 20 mg PO BID #60 caps 08/23/21
release
cholecalciferol (vitamin D3) 25 25 mcg PO DAILY Supplement 12/04/22
mcg (1,000 unit) capsule (Vitamin
D3)
flaxseed oil 1,000 mg capsule 1,500 mg PO DAILY Supplement 12/04/22
therapeutic multivitamin 1 tab PO DAILY Supplement 12/04/22
metoprolol succinate 25 mg 25 mg PO DAILY #30 tabs 12/08/22
tablet,extended release 24 hr
coenzyme Q10 100 mg capsule 200 mg PO DAILY Supplement 03/10/23
(CoQ-10)
sulfasalazine 500 mg tablet 1,000 mg PO BID Gastrointestinal 03/10/23
Issue
vitamin B complex 1 tab PO DAILY Supplement 03/10/23
cartilage 40 mg-collagen II 10 1 tab PO DAILY Supplement 07/26/23
mg-boron 5 mg-hyaluronate 3.3 mg
tablet ([employer])
folic acid 800 mcg tablet 0.8 mg PO DAILY Supplement 07/26/23
valsartan 160 mg tablet 160 mg PO DAILY Blood Pressure 07/26/23
Nervive 1 tab PO DAILY Supplement 02/08/24
alpha lipoic acid 100 mg capsule 100 mg PO DAILY Supplement 02/08/24
insulin glargine-yfgn 100 unit/mL 20 unit SC HS diabetes 02/08/24
(3 mL) subcutaneous pen
levothyroxine 75 mcg tablet 75 mcg PO DAILY Thyroid 02/08/24
magnesium glycinate 600 mg PO DAILY Supplement 02/08/24
omeprazole 40 mg capsule,delayed 40 mg PO DAILY Gastrointestinal 02/08/24
release Issue
pregabalin 1 cap PO BID Neurological Condition 02/08/24
turmeric 400 mg capsule 500 mg PO DAILY Supplement 02/08/24
Review of Systems
-
History Source: Patient
Constitutional: Reports Weight Loss (10 pounds since July)
Cardiac: Denies Chest Pain
Abdomen/GI: Reports Anorexia; Denies Abdominal Pain, Nausea, Vomiting, Diarrhea, Bloody Stools or Black Stools
: Denies Dysuria or Frequency
Neurological: Denies Dizzy or Headache
Vital Signs
Temp Pulse Resp BP Pulse Ox
97.7 F 84 20 136/79 95
02/09/24 08:01 02/09/24 08:02 02/09/24 08:01 02/09/24 08:02 02/09/24 08:01
Physical Exam
Exam
General: Well Developed and No Apparent Distress
HEENT: Normocephalic, Anicteric and Moist Mucous Membranes
Respiratory: Clear
Cardiac: S1/S2
GI: Soft, Non Tender, Non Distended and Normal Bowel Sounds
Rectal: Hem Negative
Neuro: Awake, Alert, Oriented and AO x 3
Results
WBC 8.6 10^3/uL (4.8-10.8) 02/09/24 08:44
Hgb 8.7 g/dL (12.0-16.0) L D 02/09/24 08:44
Hct 29.7 % (37.0-47.0) L 02/09/24 08:44
MCV 74.4 fL (81.0-99.0) L 02/09/24 08:44
Plt Count 239 10^3/uL (130-400) 02/09/24 08:44
Absolute Neuts (auto) 6.3 10^3/uL (1.4-6.5) 02/09/24 08:44
PT 15.3 Sec (11.4-14.6) H 02/08/24 19:26
INR 1.20 02/08/24 19:26
APTT 29.1 Sec (23.4-35.0) 02/08/24 19:26
Sodium 140 mmol/L (135-145) 02/09/24 08:44
Potassium 4.5 mmol/L (3.5-5.1) 02/09/24 08:44
Chloride 110 mmol/L (98-107) H 02/09/24 08:44
Carbon Dioxide 21 mmol/L (22-30) L 02/09/24 08:44
BUN 24 mg/dl (7-17) H 02/09/24 08:44
Creatinine 0.8 mg/dL (0.6-1.0) 02/09/24 08:44
Calcium 9.5 mg/dl (8.4-10.2) 02/09/24 08:44
Total Bilirubin 0.8 mg/dl (0.2-1.3) 02/09/24 08:44
AST 26 U/L (14-36) 02/09/24 08:44
ALT 13 U/L (0-35) 02/09/24 08:44
Alkaline Phosphatase 94 U/L (38-126) 02/09/24 08:44
Diagnostic Image Results:
Prior GI Procedures:
EGD:
07/27/23 Flexible Sigmoidoscopy for hematochezia
IMP:
- Preparation of the colon was poor.
- Diverticulosis in the recto-sigmoid colon and in the sigmoid colon.
- Blood in the recto-sigmoid colon and in the sigmoid colon
- Post-polypectomy scar in the distal rectum.
- No specimens collected.
Assessment / Plan
-
Patient is a 83 year old female with past medical history of U/C (diagnosed in 1994, on sulfasalazine), sigmoid tubular adenoma, rectal tubulovillous adenoma, GERD, hypothyroidism, diverticular bleeding, permanent A-fib (not on anticoagulants due to
risk of bleeding), diabetes and CVA who was referred to the ER by her PCP due to low hemoglobin of 6.2 on outpatient labs. She is status post 2 units of packed red blood cells. post-transfusion hemoglobin stands at 8.7.
She denies any chest pain, lightheadedness/dizziness. She does have exertional dyspnea which which has been going on for the past year. She also mentions a poor appetite and losing 10 pounds since July. Patient denies any abdominal pain,
hematochezia, hematemesis, or melena. Occult blood in ED was negative. No nausea or vomiting.
She underwent flex sigmoidoscopy 07/27/23 which showed diverticulosis of recto-sigmoid colon with evidence of old blood as well as post-polypectomy scar at the distal rectum. She went for transanal excision last February with bx TV adenoma and no
further treatment needed.
Recommendations:
Patient does not have any overt or occult GI bleeding. If patient remains stable, inpatient endo/colonoscopy is not needed. Patient can follow-up with Dr. Pal as outpatient.
-
-
Thank you for consultation and allowing me to participate in the patient's care. Please call the environmental engineering professor GI physician during the after hours with any questions or concerns.
[2024-02-09 10:36] LABS: Reticulocyte Count 1.6 % (0.4-2.8)
[2024-02-09 12:04] LABS: Glucose - Point of Care 117 mg/dl (70-99)
[2024-02-09] MEDS: FERRLECIT 110 MG IV (13:30)
--- NOTE | 2024-02-09 14:51 | CM ---
CM met with patient at bedside to complete IA.
Vandana lives alone in a one floor home located in a [place] community; 4 entry steps; bathroom has a stall shower, shower chair, and grab bar. Supportive family live nearby
Vandana reports that she is independent with ADLs; ambulates with cane or walker only when she goes out of the house.
Hx of SNF and Acute Rehab stays in the past.
PT and OT evals have been completed and Vandana will be able to return home at discharge. VN offered and she is considering this option.
Plan: Discharge to home with VN vs. discharge to home with no services.
Pharmacy: [facility]
PCP: Connor Roman
--- NOTE | 2024-02-09 15:08 | W.PN.HOSP.TC ---
Today's Communication/Plan
-
Hgb improved
Recheck CBC in AM
IV iron therapy needed
Possible discharge tomorrow
Assessment / Plan
Assessment / Plan
Physical Exam
General: Not in acute distress
HEENT: Normocephalic
Respiratory: Clear to Auscultation Bilaterally
Cardiac: S1/S2, Regular Rhythm and Peripheral Edema (+2)
GI: Soft, Non Tender, Non Distended, Normal Bowel Sounds
Musculoskeletal: No Cyanosis and No Edema
Skin: Warm and Dry
Neuro: AAO x 3, No Motor Deficits, Nonfocal/grossly intact, Cranial Nerves Intact and No Sensory Deficits
Psych: Calm

Assessment/Plan
#Symptomatic anemia-microcytic likely iron deficiency anemia from possible GI bleeding
#Dyspnea Suspected Secondary to Anemia - IMPROVED
#History of diverticular bleed July 2023 and History of Rectal Polyps
#Hx iron deficiency anemia with history of transfusion 2022
-Hgb 6.2 on admission
-2 units PRBC transfused with good improvement in Hgb to 8.7 from 6.2
-Transfuse PRN to maintain Hgb >7.5 as per hematology
-stool occult was negative in ER
-Checked iron panel: IV iron ordered
-Continue folic acid 0.8 mg p.o. daily
-Consulted GI and hematology, appreciate evaluation and recommendations
-Follow reticulocyte count
-Per GI, nothing to do inpatient, recommend follow-up with Dr. Pal as outpatient; completion of GI workup for anemia ( EGD/ VCE ) as outpatient
-CBC, BMP in a.m.
#Ulcerative colitis
-Continue sulfasalazine 1000 mg p.o. twice daily
#GERD
-Continue omeprazole 40 mg daily
#HTN�benign
Continue valsartan 160 mg daily with hold parameters
#DM2 new diagnosis July 2023
Accu-Cheks with SSI, check HgbA1c
-Insulin glargine 20 units SQ at bedtime
#HLD
No current meds
#Permanent A-fib
-Not on any AC therapy or aspirin or statin
-Continue metoprolol succinate 25 mg daily
#Hypothyroidism
-Continue levothyroxine
#CVA June 2020
Continue BP control no statins listed
Patient does not normally take Aspirin at home, as per patient
#RA
Continue Lyrica
#Osteoarthritis
Continue vitamin D3
DVT prophylaxis
SCDs
DNR
Anticipated Discharge: Within 24 hours
Subjective/Interval History
-
Date of Service: February 09, 2024
Patient was seen and examined. She denied any blood in her stool or any other symptoms or complaints.
Objective Data
-
Labs:
Laboratory Results
02/09/24
08:44
WBC 8.6
Hgb 8.7 L D
Hct 29.7 L
Plt Count 239
Sodium 140
Potassium 4.5
Chloride 110 H
Carbon Dioxide 21 L
BUN 24 H
Creatinine 0.8
Glucose 132 H
Calcium 9.5
Total Bilirubin 0.8
AST 26
ALT 13
Alkaline Phosphatase 94
Vital Signs:
Vital Signs
Temp Pulse Resp BP Pulse Ox
97.9 F 68 18 124/48 94
02/09/24 11:40 02/09/24 11:40 02/09/24 11:40 02/09/24 11:40 02/09/24 13:18
I&O
02/08/24 02/09/24 02/10/24
06:59 06:59 06:59
Intake Total 500 / 500
Balance 500 / 500
[2024-02-09 17:12] LABS: Glucose - Point of Care 132 mg/dl (70-99)
[2024-02-09 23:45] LABS: Glucose - Point of Care 134 mg/dl (70-99)
[2024-02-10 00:30] LABS: Glucose - Point of Care 129 mg/dl (70-99)
[2024-02-10 03:16] VITALS: BP 136/51
[2024-02-10] MEDS: SYNTHROID 75 MCG PO (06:02)
[2024-02-10 07:14] VITALS: BP 135/65
[2024-02-10 07:31] LABS: Glucose - Point of Care 140 mg/dl (70-99)
[2024-02-10] MEDS: B COMPLEX w/VITAMIN C 1 CAPLET PO (08:00)
[2024-02-10] MEDS: AZULFIDINE 1000 MG PO (08:00)
[2024-02-10] MEDS: DIOVAN 160 MG PO (08:00)
[2024-02-10] MEDS: CYMBALTA DELAYED RELEASE 20 MG PO (08:00)
[2024-02-10] MEDS: THERAGRAN 1 TABLET PO (08:01)
[2024-02-10] MEDS: MAG-TAB SR 84 MG PO (08:01)
[2024-02-10] MEDS: PROTONIX 40 MG PO (08:01)
[2024-02-10] MEDS: FOLVITE 0.8 MG PO (08:01)
[2024-02-10] MEDS: LYRICA 150 MG PO (08:01)
[2024-02-10] MEDS: VITAMIN D3 (cholecalciferol) 25 MCG PO (08:01)
[2024-02-10] MEDS: TOPROL XL 25 MG PO (08:01)
[2024-02-10 08:07] LABS: % Eosinophils 2.3 % (0-6); % Immature Granulocytes 0.3 % (0-0.5); % Lymphocytes 13.5 % (20.5-51.1); % Monocytes 16.1 % (1.7-9.3); % Neutrophils 66.8 % (42.2-75.2); Absolute Basophils 0.1 10^3/uL (0-0.2); Absolute Eosinophils 0.2 10^3/uL (0-0.7); Absolute Lymphocytes 1.2 10^3/uL (1.2-3.4); Absolute Monocytes 1.4 10^3/uL (0.1-0.6); Absolute Neutrophils 5.9 10^3/uL (1.4-6.5); Hematocrit 29.8 % (37.0-47.0); Hemoglobin 8.6 g/dL (12.0-16.0); Mean Corp Hgb Conc. 28.9 g/dL (33.0-37.0); Mean Corpuscular Hgb 21.9 pg (27.0-31.0); Mean Corpuscular Volume 75.8 fL (81.0-99.0); Nucleated Red Blood Cells % 0.7 %; Platelet Count 229 10^3/uL (130-400); Red Blood Cell Count 3.93 10^6/uL (4.20-5.40); Red Cell Dist. Width 20.8 % (11.5-14.5); White Blood Cell Count 8.8 10^3/uL (4.8-10.8)
[2024-02-10 09:25] LABS: ALT (SGPT) 12 U/L (0-35); AST (SGOT) 24 U/L (14-36); Albumin 3.5 g/dl (3.5-5.0); Alkaline Phosphatase 91 U/L (38-126); Blood Urea Nitrogen 24 mg/dl (7-17); Calcium 9.4 mg/dl (8.4-10.2); Carbon Dioxide 22 mmol/L (22-30); Chloride 109 mmol/L (98-107); Estimated Creatinine Clearance 43 ml/min; Glucose 128 mg/dl (70-99); Potassium 4.4 mmol/L (3.5-5.1); Sodium 138 mmol/L (135-145); Total Bilirubin 0.3 mg/dl (0.2-1.3); Total Protein 6.6 g/dl (6.3-8.2); eGFR > 60.00
--- NOTE | 2024-02-10 10:05 | W.PN.HOSP.TC ---
Today's Communication/Plan
-
Discharge today
Assessment / Plan
Assessment / Plan
Physical Exam
General: Not in acute distress
HEENT: Normocephalic
Respiratory: Clear to Auscultation Bilaterally
Cardiac: S1/S2, Regular Rhythm and Peripheral Edema (+2)
GI: Soft, Non Tender, Non Distended, Normal Bowel Sounds
Musculoskeletal: No Cyanosis and No Edema
Skin: Warm and Dry
Neuro: AAO x 3, No Motor Deficits, Nonfocal/grossly intact, Cranial Nerves Intact and No Sensory Deficits
Psych: Calm

Assessment/Plan
#Symptomatic anemia-microcytic likely iron deficiency anemia from possible GI bleeding
#Dyspnea Suspected Secondary to Anemia - IMPROVED
#History of diverticular bleed July 2023 and History of Rectal Polyps
#Hx iron deficiency anemia with history of transfusion 2022
-Hgb 6.2 on admission
-2 units PRBC transfused with good improvement in Hgb to 8.7 from 6.2
-Transfuse PRN to maintain Hgb >7.5 as per hematology
-stool occult was negative in ER
-Checked iron panel: IV iron ordered and given on 02/10/24
-Continue folic acid 0.8 mg p.o. daily
-Consulted GI and hematology, appreciate evaluation and recommendations
-Follow reticulocyte count
-Per GI, nothing to do inpatient, recommend follow-up with Dr. Pal as outpatient; completion of GI workup for anemia ( EGD/ VCE ) as outpatient
-Discussed with on-call hackler doll wigs on 02/10/24 and on-call hackler doll wigs mentioned patient is okay to discharge today with oral iron for 2-3 week (only to minimize GI symptoms), and take with food, or patient could try Flintstones with Iron
(chewable kids vitamins) Q48H or MWF
#Ulcerative colitis
-Continue sulfasalazine 1000 mg p.o. twice daily
#GERD
-Continue omeprazole 40 mg daily
#HTN�benign
Continue valsartan 160 mg daily with hold parameters
#DM2 new diagnosis July 2023
Accu-Cheks with SSI. HgbA1c was 6.0%
-Insulin glargine 20 units SQ being held for now...morning glucose levels have been 119 to 128 and overall glucose range has been 117 to 140
#HLD
No current meds
#Permanent A-fib
-Not on any AC therapy or aspirin or statin
-Continue metoprolol succinate 25 mg daily
#Hypothyroidism
-Continue levothyroxine
#CVA June 2020
Continue BP control no statins listed
Patient does not normally take Aspirin at home, as per patient
#RA
Continue Lyrica
#Osteoarthritis
Continue vitamin D3
DVT prophylaxis
SCDs
DNR
More than 30 minutes spent in discharge including
Final examination of the patient
Summarizing hospital stay
Instructions for continuing care to all relevant caregivers
Preparation of discharge records, prescriptions, and referral forms
Total time spent (in minutes): 38
Anticipated Discharge: Today
Subjective/Interval History
-
Date of Service: February 10, 2024
Patient was seen and examined. She reported feeling good and denied any new symptoms or complaints.
Objective Data
-
Labs:
Laboratory Results
02/10/24
07:11
WBC 8.8
Hgb 8.6 L
Hct 29.8 L
Plt Count 229
Sodium 138
Potassium 4.4
Chloride 109 H
Carbon Dioxide 22
BUN 24 H
Creatinine 0.9
Glucose 128 H
Calcium 9.4
Total Bilirubin 0.3
AST 24
ALT 12
Alkaline Phosphatase 91
Vital Signs:
Vital Signs
Temp Pulse Resp BP Pulse Ox
98.2 F 79 14 135/65 94
02/10/24 07:14 02/10/24 07:14 02/10/24 07:14 02/10/24 07:14 02/10/24 07:14
I&O
02/09/24 02/10/24 02/11/24
06:59 06:59 06:59
Intake Total 500 / 500 1440 / 1440
Balance 500 / 500 1440 / 1440
--- NOTE | 2024-02-10 11:03 | W.DS.TRANS ---
DC Summary - [employer]
-
Discharge Instructions:
Sleep Apnea Risk High
Discharge Diagnosis/Procedures #Symptomatic anemia-microcytic likely iron
deficiency anemia from possible GI bleeding
#Dyspnea Suspected Secondary to Anemia -
IMPROVED
#History of diverticular bleed July 2023 and
History of Rectal Polyps
#History of iron deficiency anemia with history
of transfusion 2022
#Ulcerative colitis
#GERD
#Hypertension
#DM2 new diagnosis July 2023
#Hyperlipidemia
#Permanent A-fib
#Hypothyroidism
#CVA June 2020
#Rheumatoid Arthritis
#Osteoarthritis
Diet Diabetic, Carb Controlled,Low Cholesterol,Low
Fat
Activity As tolerated
Blood Work Recheck CBC and BMP with your primary care
provider's office in 3 to 4 days
Other Services VN
Instructions:
Stand-Alone Forms:
Changes to Home Medications: Yes
Discharge Medications:
DC Medications w/original date entered in [employer]
duloxetine 20 mg capsule,delayed release 20 mg PO BID #60 caps 08/23/21
cholecalciferol (vitamin D3) 25 mcg (1,000 unit) capsule (Vitamin D3) 25 mcg PO DAILY Supplement 12/04/22
flaxseed oil 1,000 mg capsule 1,500 mg PO DAILY Supplement 12/04/22
therapeutic multivitamin 1 tab PO DAILY Supplement 12/04/22
metoprolol succinate 25 mg tablet,extended release 24 hr 25 mg PO DAILY #30 tabs 12/08/22
coenzyme Q10 100 mg capsule (CoQ-10) 200 mg PO DAILY Supplement 03/10/23
sulfasalazine 500 mg tablet 1,000 mg PO BID Gastrointestinal Issue 03/10/23
vitamin B complex 1 tab PO DAILY Supplement 03/10/23
cartilage 40 mg-collagen II 10 mg-boron 5 mg-hyaluronate 3.3 mg tablet ([employer]) 1 tab PO DAILY Supplement 07/26/23
folic acid 800 mcg tablet 0.8 mg PO DAILY Supplement 07/26/23
valsartan 160 mg tablet 160 mg PO DAILY Blood Pressure 07/26/23
Nervive 1 tab PO DAILY Supplement 02/08/24
alpha lipoic acid 100 mg capsule 100 mg PO DAILY Supplement 02/08/24
levothyroxine 75 mcg tablet 75 mcg PO DAILY Thyroid 02/08/24
magnesium glycinate 600 mg PO DAILY Supplement 02/08/24
omeprazole 40 mg capsule,delayed release 40 mg PO DAILY Gastrointestinal Issue 02/08/24
pregabalin 1 cap PO BID Neurological Condition 02/08/24
turmeric 400 mg capsule 500 mg PO DAILY Supplement 02/08/24
ferrous sulfate 325 mg (65 mg iron) tablet 325 mg PO Q48H #14 tabs 02/10/24
insulin glargine-yfgn 100 unit/mL (3 mL) subcutaneous pen 5 unit (0.05 mL) SC HS diabetes #0 mL 02/10/24
Home Medication Changes
Ferrous Sulfate is a new medication.
Insulin dose reduced but should be adjusted further increased/decreased after you discuss with your PCP DANY this week.
Pending Results: No
Total time spent discharging patient (in min): 38
[2024-02-10 11:13] LABS: Glucose - Point of Care 152 mg/dl (70-99)
[2024-02-10 11:25] VITALS: BP 101/60
[2024-02-10] MEDS: FERRLECIT 110 MG IV (13:39)
[2024-02-10 15:46] VITALS: BP 133/56
--- NOTE | 2024-02-10 16:02 | PTCARENOTE ---
Pt discharged. Escorted by RN via wheelchair to lobby. Pt's daughter transporting pt home.
--- NOTE | 2024-02-10 16:39 | CM ---
met with patient at bedside.she is stable for dc home today with no needs.patient signed imm letter.daughter to transport home.
== END 2024-02-10 16:17 | disposition home or self-care (01) | DRG 385 ==
LOC: 4 EAST ACU 22:14
PROVIDERS: Clinical Nurse Specialist Family Health; Emergency Medicine; ADMITTING PHYSICIAN Internal Medicine; ATTENDING PHYSICIAN Hospitalist; CONSULT PHYSICIAN Internal Medicine Gastroenterology; CONSULT PHYSICIAN Internal Medicine Hematology & Oncology; EMERGENCY PHYSICIAN Emergency Medicine; FAMILY PHYSICIAN Family Medicine
PROC: 30233N1 Transfusion of Nonautologous Red Blood Cells into Peripheral Vein, Percutaneous Approach (ICD-10-PCS; 2024-02-09)
DX: K51.90 Ulcerative colitis, unspecified, without complications (principal); K57.31 Diverticulosis of large intestine without perforation or abscess with bleeding; I48.21 Permanent atrial fibrillation; D62 Acute posthemorrhagic anemia; D50.9 Iron deficiency anemia, unspecified; K21.9 Gastro-esophageal reflux disease without esophagitis; E78.00 Pure hypercholesterolemia, unspecified; E03.9 Hypothyroidism, unspecified; M06.9 Rheumatoid arthritis, unspecified; I10 Essential (primary) hypertension; E11.649 Type 2 diabetes mellitus with hypoglycemia without coma; E66.09 Other obesity due to excess calories; Z66 Do not resuscitate; Z68.37 Body mass index [BMI] 37.0-37.9, adult
CPT/HCPCS: 80053; 82607; 82728; 82746; 82962; 83036; 83540; 83550; 85025; 85045; 85610; 85730; 86850; 86900; 86901; 86902; 86920; 86922; 93005; 97116; 97162; 97166; 99284; J2916; P9016

== ENCOUNTER 2024-10-28 23:48 | Inpatient (IN) | payer MEDICARE, OTHER, SELFPAY ==
[2024-10-28 19:14] VITALS: BP 149/95
[2024-10-28 19:28] LABS: % Basophils 0.6 % (0-2); % Immature Granulocytes 0.5 % (0-0.5); % Lymphocytes 18.3 % (20.5-51.1); % Monocytes 13.5 % (1.7-9.3); % Neutrophils 63.1 % (42.2-75.2); Absolute Basophils 0.1 10^3/uL (0-0.2); Absolute Eosinophils 0.4 10^3/uL (0-0.7); Absolute Lymphocytes 1.6 10^3/uL (1.2-3.4); Absolute Monocytes 1.2 10^3/uL (0.1-0.6); Absolute Neutrophils 5.6 10^3/uL (1.4-6.5); Hematocrit 42.2 % (37.0-47.0); Hemoglobin 13.2 g/dL (12.0-16.0); Mean Corp Hgb Conc. 31.3 g/dL (33.0-37.0); Mean Corpuscular Hgb 31.2 pg (27.0-31.0); Mean Corpuscular Volume 99.8 fL (81.0-99.0); Mean Platelet Volume 12.5 fL (7.4-10.4); Nucleated Red Blood Cells % 0 %; Platelet Count 254 10^3/uL (130-400); Red Blood Cell Count 4.23 10^6/uL (4.20-5.40); Red Cell Dist. Width 13.4 % (11.5-14.5); White Blood Cell Count 8.8 10^3/uL (4.8-10.8)
[2024-10-28 19:42] LABS: ALT (SGPT) 28 U/L (0-35); AST (SGOT) 37 U/L (14-36); Albumin 3.6 g/dl (3.5-5.0); Alkaline Phosphatase 93 U/L (38-126); Blood Urea Nitrogen 30 mg/dl (7-17); Calcium 10.2 mg/dl (8.4-10.2); Carbon Dioxide 26 mmol/L (22-30); Chloride 105 mmol/L (98-107); Glucose 252 mg/dl (70-99); Lipase 216 U/L (23-300); Potassium 5.2 mmol/L (3.5-5.1); Sodium 138 mmol/L (135-145); Total Bilirubin 0.5 mg/dl (0.2-1.3); Total Protein 7.1 g/dl (6.3-8.2)
[2024-10-28 21:10] VITALS: BP 135/65
[2024-10-28 21:19] VITALS: BMI 38.3
--- NOTE | 2024-10-28 21:35 | ED.GENMED ---
History of Present Illness
General
Chief Complaint: Abdominal Symptoms
Source: patient
Exam Limitations: none
Time Seen by Provider: 10/28/24 21:20
Nursing documentation reviewed up to this point in time: agreed with
History of Present Illness
History of Present Illness:
The patient is a pleasant 84-year-old female past medical history of diverticulosis with multiple episodes of GI bleeding in the past, who presents with bright red blood per rectum since this morning. Patient reports that she has passed bright red
blood in the toilet at least 6-7 times today. She denies lightheadedness, chest pain or shortness of breath. Patient reports she is not on blood thinners. She is on a baby aspirin.
Past History
Past History
ED Past Medical History: Arrthythmia (Atrial fib), HTN, Hypercholesterolemia, NIDDM and Other ( Microscopic Ulcerative colitis, Gi bleeding, diverticulosis, )
ED Past Surgical History: Cardiac ('Clamp')
Social History
Tobacco: Former smoker
Alcohol: None
Drug: None
Personal:
Living: with family
Employment: Retired
Family History
Family History: Other
Review of Systems
Review of Systems
Allergies reviewed?: Yes
All Other Systems: ROS reviewed and negative except as documented in HPI and ROS
Constitutional: Reports no symptoms
EENT: Reports no symptoms
Respiratory: Reports no symptoms
Cardiac: Reports no symptoms
ABD/GI: Reports abdominal pain, bloody stools and other (Bright red blood per rectum)
: Reports no symptoms
Musculoskeletal: Reports no symptoms
Skin: Reports no symptoms
Neurological: Reports no symptoms
Endocrine: Reports no symptoms
Hematologic/Lymphatic: Reports no symptoms
Psychiatric: Reports no symptoms
Phy Exam
Physical Exam
Physical Exam:
Physical Exam
General: no apparent distress, not acutely ill
Neck: supple. no meningeal signs. normal psoterior pharynx
Heart: s1/s2 regular rate and rhythm, no murmur. equal radial pulses.
Lungs: no acute respiratory distress. clear bilaterally
Abdomen: Soft. Normal bowel sounds. Mild lower abdominal tenderness bilaterally. On rectal exam, patient has a small amount of bright red blood in rectal vault
Neuro: alert and oriented. no focal neurological deficits
Skin: no rash
Psychiatric: well kept. interactive and cooperative
Extremities: no edema. no calf tenderness. negative homans. good distal pulses
Course
Orders/Labs/Results
Orders:
Orders
10/28/24 19:20
Complete Blood Count/With Diff Urgent
Comprehensive Metabolic Panel Urgent
Lipase Urgent
10/28/24 21:47
CT Abd/pelvis Angio W/wo Iv Urgent
Comment:
Reason For Exam: lower gi bleed. lower ab pain
IV Insert/Care/Rem.- Treatment PRN
0.9% Sodium Chloride 1000 ml [Nss] 1,000 ml IV BOLUS
10/28/24 22:01
Type+Screen Urgent
10/28/24 23:00
Flush (0.9% Sodium Chloride) [Flush (Nss)] See Dose Instructions IV PER PROTOCOL
Abnormal Lab Results
10/28/24
19:20
MCV 99.8 H fL
(81.0-99.0)
MCH 31.2 H pg
(27.0-31.0)
MCHC 31.3 L g/dL
(33.0-37.0)
MPV 12.5 H fL
(7.4-10.4)
Absolute Monos (auto) 1.2 H 10^3/uL
(0.1-0.6)
Lymphocytes % 18.3 L %
(20.5-51.1)
Monocytes % 13.5 H %
(1.7-9.3)
Potassium 5.2 H mmol/L
(3.5-5.1)
BUN 30 H mg/dl
(7-17)
Glucose 252 H mg/dl
(70-99)
AST 37 H U/L
(14-36)
10/28/24 19:20
10/28/24 19:20
Vital Signs
Initial and Last Documented VS:
Initial Vital Signs
Temp Pulse Resp Pulse Ox
98.0 F 104 18 98
10/28/24 19:12 10/28/24 19:12 10/28/24 19:12 10/28/24 19:12
Last Documented Vital Signs
Temp Pulse Resp BP Pulse Ox
98.0 F 94 16 135/65 94
10/28/24 19:12 10/28/24 22:00 10/28/24 22:00 10/28/24 21:10 10/28/24 22:00
MDM/Problems Addressed
Differential Diagnosis Includes:
Diverticular bleed, AV malformation, acute diverticulitis
MDM/Problems Addressed:
Patient presents with acute lower GI bleed
Chronic conditions affecting care:
Diverticulosis
Acute Exacerbation and/or Progression of Chronic Illness:
Patient likely has acute diverticular bleed
*Radiology
Radiology exam reviewed: radiology read reviewed
*Pulse Oximetry
Patient hypoxic: no
*EKG
Interpreted by ED Provider?: NA
*Legal Referee Interpretation
Rate: normal
Interpretation: normal
Rhythm: sinus
*Critical Care Note
Total Time (30-74mins, 75-104mins- exclusive of procedures): Not Applicable (35 minutes of critical care given to the patient including reassessing her blood pressure, heart rate, reviewing her CAT scan report, speaking to hospitalist, IR and GI)
Data Reviewed
Source: patient
Patient Management
Social determinants of health affecting care: Living situation and Strong social support
Discussion with other providers: Hospitalist and Other (GI DrKunal Coker made aware of the patient. Due to CT angiogram showing active bleed, case also presented to interventional radiology, Dr. Thomas)
ED Attending Note
-
Portions of this chart may have been created with voice recognition software.� Occasional wrong word or��sound alike� substitutions may have occurred due to the inherent limitations of voice recognition software.
Discharge Plan
Departure
Patient Disposition: Admit
Date of Disposition: 10/28/24
Time of Disposition: 21:46
Admit to: Med/Surg
Presentation/result/management discussed w/ accepting MD/DO: Hospitalist
Patient with high blood pressure during this ER visit?: Yes
Condition: Good
Covid-19: Not Applicable
Discharge Problem:
Acute lower gastrointestinal bleeding, Acute diverticular bleed
Prescriptions:
No Action
therapeutic multivitamin Tablet
1 tab PO DAILY
cholecalciferol (vitamin D3) [Vitamin D3] 25 mcg (1,000 unit) Capsule
25 mcg PO DAILY
sulfasalazine 500 MG tablet
1,000 mg PO HS
coenzyme Q10 [CoQ-10] 100 mg Capsule
200 mg PO DAILY
folic acid 800 mcg Tablet
0.8 mg PO DAILY
valsartan 160 mg Tablet
160 mg PO DAILY
[facility] 40-10-5-3.3 mg Tablet
1 tab PO DAILY
omeprazole 40 mg Capsule,Delayed Release(Dr/Ec)
40 mg PO DAILY
alpha lipoic acid 100 mg Capsule
100 mg PO DAILY
turmeric 400 mg Capsule
500 mg PO DAILY
magnesium glycinate 100 mg magnesium Capsule
600 mg PO DAILY Qty: 0
Nervive tablet
1 tab PO DAILY
levothyroxine 75 MCG tablet
75 mcg PO DAILY
ferrous sulfate 325 mg (65 mg iron) tablet
325 mg PO Q48H Qty: 14 1RF
carvedilol [Coreg] 6.25 mg Tablet
6.25 mg PO BID
insulin glargine-yfgn 100 unit/mL (3 mL) insulin pen
15 unit SC HS
duloxetine 20 MG capsule,delayed release(DR/EC)
20 mg PO BID Qty: 60 0RF
Interventions
Interventions:
*Risk Screen - Suicide Last Done: 10/28/24 19:14
*General Assessment Last Done: 10/28/24 19:14
*Neglect/Abuse Screening Last Done: 10/28/24 19:14
*ED- Fall Risk Assessment Last Done: 10/28/24 21:17
*ED COVID-19 Vaccine History Last Done: 10/28/24 21:17
QR-Ujbrks-Sececwkrrk Assessment Last Done: 10/28/24 21:17
Discharge Date and Time
Print Language: POLISH
[2024-10-28] MEDS: NSS 1000 IV (22:00)
--- NOTE | 2024-10-28 22:27 | HPS.HSE ---
Addendum entered and electronically signed by Damien Garcia DO 10/28/24 23:59:
Patient seen and examined independently. Agree with findings and plan as set forth by JAVIER Mabry.
Patient is an 84y F with PMH significant for hypertension, A-Fib and DM-II who presents to ED complaining of bloody stools. Patient states that she woke from her sleep early this AM with urge to defecate. She had a grossly bloody stool. She
has since had crampy lower abdominal pain and several additional bloody stools. Her last several BM have been essentially just blood. Her last movement was here in the ED after her CT scan and was again gross blood.
Patient denies any associated lightheadedness, dizziness, chest pain, dyspnea, etc.
Patient reports prior history of LGIB and diverticular disease. She previously had multiple episodes - though she states that her last such episode was about one year ago.
Ass:
Lower GI Bleed
Diverticular Disease
Benign Hypertension
Paroxysmal Atrial Fibrillation
Hypothyroidism
GERD
DM-II
Mild Hyperkalemia
Plan:
Admit to IMU for further evaluation and treatment.
CTA done in the ED shows active hemorrhage from the sigmoid colon / diverticulum.
Hemodynamically stable. Hgb = 13.2 on initial check.
Hold ASA acutely.
Not on anticoagulation for A-Fib - s/p atrial clip.
GI evaluation for additional recommendations.
Follow for further BRBPR.
Follow H&H and transfuse as needed.
Hold ARB acutely and follow for improvement in K levels.
Original Note:
Family Physician
-
Family Physician: Connor Roman
Chief Complaint
-
rectal bleeding
History of Present Illness
Patient is a 84-year-old female with past medical history significant for essential hypertension, atrial fibrillation, hypothyroidism, GERD, colitis, diabetes mellitus type II and anemia who presented to [facility] ED for evaluation of rectal bleeding.
Patient reports that she had bloody diarrhea wake her from her sleep early this morning and has had many episodes since and she now believes it is all just blood with last episode not long ago. She reports mild lower abdomen discomfort. Denies any
fever, chills, chest pain, palpitations, shortness of breath, nausea, vomiting or urinary symptoms.
Medical History
Past Medical History
Past Medical History: Reports Other
Additional Past Medical History:
essential hypertension
atrial fibrillation
hypothyroidism
GERD
colitis
diabetes mellitus type II
anemia
Hx GI bleed
Hx CVA
Past Surgical History: Reports Other
Additional Past Surgical History:
umbar fusion 2014
Collapsed lung
Right thumb fusion
Left wrist
Bilateral L5 TFESI 02/20/2019
Right L4-5,L5-S1 IAFJI 03/11/2019
Bilateral L5 TFESI 12/25/2019
B/L L4-L5, L5-S1 FJI 01/20/2020
Right humerus ORIF 08.23.2020
Bilateral L5 TFESI 12/23/2020 SPB
Right removal and replacement of right distal screw IM nail of humuerus 01.04.2021
Right L5 TFESI 01/13/21 SB
Atrial appendage clip
RT SIJI NO SED 06/24/24
Social History
Tobacco: Former Smoker
Alcohol: None
Drug: None
Living: Alone
Employment: Retired
Family History
Family History: Not pertinent
Allergies / Home Medications
Allergies reflects when Allergies were last updated in [facility].
Home Medications with original date entered in [facility]
Allergy/Medication List:
Allergies
Allergy/AdvReac Type Severity Reaction Status Date / Time
adhesive Allergy Rash Verified 10/28/24 19:15
amoxicillin [From Augmentin] Allergy DIARRHEA Verified 10/28/24 19:15
clavulanic acid Allergy DIARRHEA Verified 10/28/24 19:15
[From Augmentin]
hydroxychloroquine Allergy rash/'irregular Verified 10/28/24 19:15
[From Plaquenil] heart
rhythm'
latex Allergy Rash Verified 10/28/24 19:15
leflunomide Allergy Rash Verified 10/28/24 19:15
naproxen [From Naprosyn] Allergy Shortness Verified 10/28/24 19:15
of Breath
nickel Allergy Rash Verified 10/28/24 19:15
Home Medications
duloxetine 20 mg capsule,delayed release 20 mg PO BID #60 caps 08/23/21
cholecalciferol (vitamin D3) 25 mcg (1,000 unit) capsule (Vitamin D3) 25 mcg PO DAILY Supplement 12/04/22
therapeutic multivitamin 1 tab PO DAILY Supplement 12/04/22
coenzyme Q10 100 mg capsule (CoQ-10) 200 mg PO DAILY Supplement 03/10/23
sulfasalazine 500 mg tablet 1,000 mg PO HS Gastrointestinal Issue 03/10/23
cartilage 40 mg-collagen II 10 mg-boron 5 mg-hyaluronate 3.3 mg tablet ([employer]) 1 tab PO DAILY Supplement 07/26/23
folic acid 800 mcg tablet 0.8 mg PO DAILY Supplement 07/26/23
valsartan 160 mg tablet 160 mg PO DAILY Blood Pressure 07/26/23
Nervive 1 tab PO DAILY Supplement 02/08/24
alpha lipoic acid 100 mg capsule 100 mg PO DAILY Supplement 02/08/24
levothyroxine 75 mcg tablet 75 mcg PO DAILY Thyroid 02/08/24
magnesium glycinate 600 mg PO DAILY Supplement ##0 02/08/24
omeprazole 40 mg capsule,delayed release 40 mg PO DAILY Gastrointestinal Issue 02/08/24
turmeric 400 mg capsule 500 mg PO DAILY Supplement 02/08/24
ferrous sulfate 325 mg (65 mg iron) tablet 325 mg PO Q48H #14 tabs 02/10/24
carvedilol 6.25 mg tablet (Coreg) 6.25 mg PO BID 10/28/24
insulin glargine-yfgn 100 unit/mL (3 mL) subcutaneous pen 15 unit SC HS diabetes 10/28/24
Review of Systems
-
History Source: Patient
Abdomen/GI: Reports Abdominal Pain, Diarrhea and Bloody Stools
Physical Exam
Vital Signs
Vital Signs
Temp Pulse Resp BP Pulse Ox
98.0 F 94 16 135/65 94
10/28/24 19:12 10/28/24 22:00 10/28/24 22:00 10/28/24 21:10 10/28/24 22:00
Physical Exam
General: Well Developed, Well Nourished, No Apparent Distress, Comfortable, Conversant and Morbidly Obese
HEENT: NormoCephalic, Moist mucous membranes, Atraumatic, [place] Conjunctivae, Nose Appears Normal and Ears Appear Normal
Respiratory: Clear and Non Labored Respirations
Cardiac: S1/S2 and Irregular Rhythm
GI: Soft and Tender
Rectal: Deferred by Provider
Genito-urinary: Deferred by me
Musculoskeletal: No Clubbing, No Cyanosis and No Edema
Skin: Warm and IV/Catheter Site
Neuro: Awake, Alert, AO x 3 and Nonfocal/grossly intact
Psych: Calm and Intact Judgment/Insight
Laboratory Results
-
10/28/24 19:20
10/28/24 19:20
Laboratory Results
Total Bilirubin 0.5 mg/dl (0.2-1.3) 10/28/24 19:20
AST 37 U/L (14-36) H 10/28/24 19:20
ALT 28 U/L (0-35) 10/28/24 19:20
Alkaline Phosphatase 93 U/L (38-126) 10/28/24 19:20
Lipase 216 U/L (23-300) 10/28/24 19:20
Data Reviewed
-
CT Scan: Report Reviewed by me (Abd/Pel: 1. ACUTE ACTIVE DIVERTICULAR HEMORRHAGE in the MID SIGMOID COLON. 2. Severe diverticulosis throughout the sigmoid colon. 3. Moderate to severe chronic bilateral renal disease. 4. Large bilateral
nonobstructing intrarenal calculi. 5. 2.8 cm splenic mass which appears unchanged. 6. )
Lab Data: Labs Reviewed by me (K+ 5.2, BUN 30, Creat 1.0, eGFR 55.9)
Impression/Plan
-
IMPRESSION/PLAN:
#acute active diverticular hemorrhage
#Hx GI bleed
bright red diarrhea, started early this AM, multiple episodes
hgb 13.2, Hct 42.2
Abd/Pel CT: 1. ACUTE ACTIVE DIVERTICULAR HEMORRHAGE in the MID SIGMOID COLON.
2. Severe diverticulosis throughout the sigmoid colon.
3. Moderate to severe chronic bilateral renal disease.
4. Large bilateral nonobstructing intrarenal calculi.
5. 2.8 cm splenic mass which appears unchanged.
6. 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
7. Previous bilateral posterior instrumentation at L4/L5.
- Admit to IMU
- Consult GI
- Consult IR
- IVF
- blood consent obtained
#essential hypertension
- continue valsartan
#atrial fibrillation
not on anticoagulant
- continue carvedilol
#hypothyroidism
- continue levothyroxine
#GERD
- continue omeprazole
#colitis
- continue sulfasalazine
#diabetes mellitus type II
- AccuCheck AC & HS
- SSI
- continue insulin glargine at 10 units
#anemia
- continue folic acid and ferrous sulfate
#Hx CVA
Code status: DNR
DVT prophylaxis: SCDs
[2024-10-29] VITALS (35 sets, daily range): BP systolic 110–160; BP diastolic 60–114; BMI 38.3
[2024-10-29] MEDS: NSS 1000 IV ×3 (01:31→22:12)
[2024-10-29 01:33] LABS: Hematocrit 36.8 % (37.0-47.0); Hemoglobin 11.9 g/dL (12.0-16.0)
[2024-10-29 06:12] LABS: Hematocrit 34.5 % (37.0-47.0); Mean Corp Hgb Conc. 31.9 g/dL (33.0-37.0); Mean Corpuscular Hgb 31.1 pg (27.0-31.0); Mean Corpuscular Volume 97.5 fL (81.0-99.0); Platelet Count 233 10^3/uL (130-400); Red Blood Cell Count 3.54 10^6/uL (4.20-5.40); Red Cell Dist. Width 13.3 % (11.5-14.5); White Blood Cell Count 8.4 10^3/uL (4.8-10.8)
[2024-10-29 06:44] LABS: Blood Urea Nitrogen 28 mg/dl (7-17); Calcium 9.3 mg/dl (8.4-10.2); Carbon Dioxide 21 mmol/L (22-30); Chloride 108 mmol/L (98-107); Estimated Creatinine Clearance 45 ml/min; Glucose 255 mg/dl (70-99); Potassium 4.6 mmol/L (3.5-5.1); Sodium 139 mmol/L (135-145); eGFR > 60.00
[2024-10-29] MEDS: SYNTHROID 75 MCG PO (06:44)
[2024-10-29] MEDS: PROTONIX 40 MG PO (08:15)
[2024-10-29] MEDS: COREG 6.25 MG PO ×2 (08:15→19:53)
[2024-10-29] MEDS: FOLVITE 0.8 MG PO (08:15)
[2024-10-29 08:21] LABS: Glucose - Point of Care 261 mg/dl (70-99)
--- NOTE | 2024-10-29 08:40 | CON.GI ---
Addendum entered and electronically signed by Travis Coker MD 10/29/24 16:02:
I saw and examined the patient.
The GEOMETRY PROFESSOR's note was reviewed and I agree with the note.
-- recurrent rectal bleeding secondary to diverticular disease / CTA positive mid sigmoid during this admission s/p IR arteriogram- negative
-hx transanal resection of TV polyp 02/2023
-hx microscopic colitis and distant hx UC with chronic mesalamine use
plan
continue monitor H/H
CLD
will follow
Original Note:
Consultation
-
Date/Time Consultation Requested: 10/29/2499
Date/Time Consultation Performed: 10/29/24 0845
Requesting Provider: JAVIER Gaming
Performing Provider: JAVIER Brannon, Travis Coker MD
Reason for Consultation: GI bleed
Medical History
Chief Complaint / HPI
Chief Complaint: rectal bleeding
History of Present Illness:
The patient is an 84year-old female with a past medical history significant for atrial fibrillation off AC on daily ASA with atrial clip, CVA, right thoracotomy, GERD, NIDDM, hypothyroidism, microscopic colitis and possible hx ulcerative colitis
years ago with chronic sulfasalazine use, history of anemia with prior rectal bleeding. In 2022 she was noted with rectal mass and large rectal polyp on colonoscopy in 11/2022. She completed EUS with Dr. Gregorio with T1 vs T2 staging with some post
procedure bleeding. She went for transanal excision in February with bx TV adenoma and no further treatment needed. she returned on 07/2023 with recurrent bleeding. Repeat flex at that time with diverticulosis, blood in recto sigmoid polypectomy
scar but no source found. Pt returned again in 01/2024 with symptomatic anemia with hbg down to 6.2 and GI work up held. She now returns with recurrent bleeding passing large volumes of red blood since admission. CTA on admission with acute active
diverticular bleed in mid sigmoid along with other chronic findings.
At this time pt admits to bleeding since 10/28. She admits stool about every 2 hours overnight. She does also have some crampy pain with bleeding. She denies odynophagia, dysphagia, GERD, nausea, vomiting, diarrhea, constipation or black stools.
Pt states usual pattern is several formed brown stools daily. Daily ASA but no other NSAID or anticoagulation use.
Past Medical History
Past Medical History: Arrhythmias (afib no on anticoagulation), CVA, GERD, Hypothyroidism, NIDDM and Other (microscopic colitis, rectal mass, large rectal/SC polyp s/p polypectomy )
Past Surgical History: Cardiac (atrial clip), Gynecological (tubal ligation), Orthopedic (right humerus ORIF), Urological (right humerus, ORIF) and Other (atrial appendage clipping @ [facility], transanal excision with TV polyp 02/2023, right
thoacotomy, tubal ligation)
Social History
Tobacco: Former Smoker
Alcohol: None
Drug: None
Living: Alone
Employment: Retired
Family History
Family History: Other (paternal uncle with liver CA)
Allergies / Home Medications
Allergy/AdvReac Type Severity Reaction Status Date / Time
adhesive Allergy Rash Verified 10/28/24 19:15
amoxicillin [From Augmentin] Allergy DIARRHEA Verified 10/28/24 19:15
clavulanic acid Allergy DIARRHEA Verified 10/28/24 19:15
[From Augmentin]
hydroxychloroquine Allergy rash/'irregular Verified 10/28/24 19:15
[From Plaquenil] heart
rhythm'
latex Allergy Rash Verified 10/28/24 19:15
leflunomide Allergy Rash Verified 10/28/24 19:15
naproxen [From Naprosyn] Allergy Shortness Verified 10/28/24 19:15
of Breath
nickel Allergy Rash Verified 10/28/24 19:15
�Medication �Instructions �Recorded
duloxetine 20 mg capsule,delayed 20 mg PO BID #60 caps 08/23/21
release
cholecalciferol (vitamin D3) 25 25 mcg PO DAILY Supplement 12/04/22
mcg (1,000 unit) capsule (Vitamin
D3)
therapeutic multivitamin 1 tab PO DAILY Supplement 12/04/22
coenzyme Q10 100 mg capsule 200 mg PO DAILY Supplement 03/10/23
(CoQ-10)
sulfasalazine 500 mg tablet 1,000 mg PO HS Gastrointestinal 03/10/23
Issue
cartilage 40 mg-collagen II 10 1 tab PO DAILY Supplement 07/26/23
mg-boron 5 mg-hyaluronate 3.3 mg
tablet ([employer])
folic acid 800 mcg tablet 0.8 mg PO DAILY Supplement 07/26/23
valsartan 160 mg tablet 160 mg PO DAILY Blood Pressure 07/26/23
Nervive 1 tab PO DAILY Supplement 02/08/24
alpha lipoic acid 100 mg capsule 100 mg PO DAILY Supplement 02/08/24
levothyroxine 75 mcg tablet 75 mcg PO DAILY Thyroid 02/08/24
magnesium glycinate 600 mg PO DAILY Supplement ##0 02/08/24
omeprazole 40 mg capsule,delayed 40 mg PO DAILY Gastrointestinal 02/08/24
release Issue
turmeric 400 mg capsule 500 mg PO DAILY Supplement 02/08/24
ferrous sulfate 325 mg (65 mg 325 mg PO Q48H #14 tabs 02/10/24
iron) tablet
carvedilol 6.25 mg tablet (Coreg) 6.25 mg PO BID 10/28/24
insulin glargine-yfgn 100 unit/mL 15 unit SC HS diabetes 10/28/24
(3 mL) subcutaneous pen
Review of Systems
-
History Source: Patient
Constitutional: Reports No Symptoms
EENT: Reports No Symptoms
Respiratory: Reports No Symptoms
Cardiac: Reports No Symptoms
Abdomen/GI: Reports Abdominal Pain and Bloody Stools
: Reports Frequency (with urgency)
Musculoskeletal: Reports No Symptoms
Skin: Reports No Symptoms
Neurological: Reports No Symptoms
Endocrine: Reports No Symptoms
Hematologic/Lymphatic: Reports Bleeding
Vital Signs
Temp Pulse Resp BP Pulse Ox
98.0 F 107 15 148/78 95
10/28/24 19:12 10/29/24 08:15 10/29/24 07:16 10/29/24 08:15 10/29/24 07:00
Physical Exam
Exam
General: Well Developed, Well Nourished and No Apparent Distress
HEENT: Normocephalic and Anicteric
Respiratory: Clear
Cardiac: Irregular Rhythm (and tachy)
GI: Soft, Non Tender and Non Distended
Rectal: Other (red blood with clots in bedpan)
Musculoskeletal: No Clubbing and No Cyanosis
Skin: Warm and Dry
Neuro: Awake, Alert and AO x 3
Psych: Calm
Results
WBC 8.4 10^3/uL (4.8-10.8) 10/29/24 05:57
Hgb 11.0 g/dL (12.0-16.0) L 10/29/24 05:57
Hct 34.5 % (37.0-47.0) L 10/29/24 05:57
MCV 97.5 fL (81.0-99.0) 10/29/24 05:57
Plt Count 233 10^3/uL (130-400) 10/29/24 05:57
Absolute Neuts (auto) 5.6 10^3/uL (1.4-6.5) 10/28/24 19:20
PT Cancelled 10/29/24 07:23
INR Cancelled 10/29/24 07:23
Sodium 139 mmol/L (135-145) 10/29/24 05:57
Potassium 4.6 mmol/L (3.5-5.1) 10/29/24 05:57
Chloride 108 mmol/L (98-107) H 10/29/24 05:57
Carbon Dioxide 21 mmol/L (22-30) L 10/29/24 05:57
BUN 28 mg/dl (7-17) H 10/29/24 05:57
Creatinine 0.9 mg/dL (0.6-1.0) 10/29/24 05:57
Calcium 9.3 mg/dl (8.4-10.2) 10/29/24 05:57
Total Bilirubin 0.5 mg/dl (0.2-1.3) 10/28/24 19:20
AST 37 U/L (14-36) H 10/28/24 19:20
ALT 28 U/L (0-35) 10/28/24 19:20
Alkaline Phosphatase 93 U/L (38-126) 10/28/24 19:20
Lipase 216 U/L (23-300) 10/28/24 19:20
Diagnostic Image Results:
10/28/24 CT Abd/pelvis Angio W/wo Iv
1. ACUTE ACTIVE DIVERTICULAR HEMORRHAGE in the MID SIGMOID COLON.
2. Severe diverticulosis throughout the sigmoid colon.
3. Moderate to severe chronic bilateral renal disease.
4. Large bilateral nonobstructing intrarenal calculi.
5. 2.8 cm splenic mass which appears unchanged.
6. 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
7. Previous bilateral posterior instrumentation at L4/L5.
07/2023 CT Abd/pelvis Angio W/wo Iv
1. No definitive acute abnormality seen within the abdomen or pelvis. No findings suggestive of active gastric intestinal bleeding. There is some hyperdense material/oral contrast seen within the proximal colon which somewhat limits evaluation.
2. Unchanged 6 mm pulmonary nodule within the left lower lobe.
3. Sludge versus excreted contrast material within the gallbladder.
4. Unchanged rounded soft tissue focus arising from the anterior medial aspect of the spleen, possibly normal variant. This is stable over several years.
5. Bilateral renal cortical atrophy with bilateral large renal calculi.
6. Additional findings above.
Prior GI Procedures:
12/06/22 colonoscopy - salguti� � - Preparation of the colon was fair.
�� � � � � � � � � � � - Moderate diverticulosis in the recto-sigmoid colon,
�� � � � � � � � � � � in the sigmoid colon and in the descending colon.
�� � � � � � � � � � � There was narrowing of the colon in association with
�� � � � � � � � � � � the diverticular opening.
�� � � � � � � � � � � - Stool in the entire examined colon.
�� � � � � � � � � � � - One 15 mm polyp in the distal rectum. Injected.
�� � � � � � � � � � � Biopsied.
�� � � � � � � � � � � - Likely malignant tumor in the distal rectum.
�� � � � � � � � � � � Biopsied.-- retal polyp fragement Tubular adenoma, rectal mass superficial fragment of TV adenoma
12/22/22- rectal EUS- Jg -� � - Preparation of the colon was inadequate.
�� � � � � � � � � � � - Rectal mass was visualized endosonographically. This
�� � � � � � � � � � � was staged T1 vs T2, indeterminate.
�� � � � � � � � � � � - No specimens collected
12/22/22- flex sig Jg �� - Preparation of the colon was inadequate.
�� � � � � � � � � � � - Rectal palpable mass/polyp.
�� � � � � � � � � � � - One 20 mm, bleeding polyp in the distal rectum.
�� � � � � � � � � � � Laterally spreading nodular tumor with dominant
�� � � � � � � � � � � nodule. Biopsied.
�� � � � � � � � � � � - One 15 mm polyp in the sigmoid colon, removed with
�� � � � � � � � � � � mucosal resection. Resected and retrieved.
�� � � � � � � � � � � - Mucosal resection was performed. Resection and
�� � � � � � � � � � � retrieval were complete.
bx Tubular adenoma in sigmoid and fragment of TV adenoma rectal mass
12/23/22 flex sig �[place] - Preparation of the colon was poor.
�� � � � � � � � � � � - Polypoid lesion in the distal rectum. previously
�� � � � � � � � � � � biopsied .
�� � � � � � � � � � � - Old Blood in the rectum and in the sigmoid colon.
�� � � � � � � � � � � - A tattoo was seen in the sigmoid colon close to
�� � � � � � � � � � � polypectomy site. No active bleeding noted
�� � � � � � � � � � � - No specimens collected.
03/15/23 OR sunday �(full-thickness) rectal cancer path tubulovillous adenoma
07/27/23- Salguti flex Preparation of the colon was poor.
- Diverticulosis in the recto-sigmoid colon and in the
sigmoid colon.
- Blood in the recto-sigmoid colon and in the sigmoid
colon.
- Post-polypectomy scar in the distal rectum.
- No specimens collected.
Assessment / Plan
-
The patient is an 84year-old female with a past medical history significant for atrial fibrillation off AC on daily ASA with atrial clip, CVA, right thoracotomy, GERD, NIDDM, hypothyroidism, microscopic colitis and possible hx ulcerative colitis
years ago with chronic sulfasalazine use, history of anemia with prior rectal bleeding. In 2022 she was noted with rectal mass and large rectal polyp on colonoscopy in 11/2022. She completed EUS with Dr. Gregorio with T1 vs T2 staging with some post
procedure bleeding. She went for transanal excision in February with bx TV adenoma and no further treatment needed. she returned on 07/2023 with recurrent bleeding. Repeat flex at that time with diverticulosis, blood in recto sigmoid polypectomy
scar but no source found. Pt returned again in 01/2024 with symptomatic anemia with hbg down to 6.2 and GI work up held. She now returns with recurrent bleeding passing large volumes of red blood since admission. CTA on admission with acute active
diverticular bleed in mid sigmoid along with other chronic findings.
At this time pt admits to bleeding since 10/28. She admits stool about every 2 hours overnight. She does also have some crampy pain with bleeding. She denies odynophagia, dysphagia, GERD, nausea, vomiting, diarrhea, constipation or black stools.
Pt states usual pattern is several formed brown stools daily. Daily ASA but no other NSAID or anticoagulation use.
-recurrent rectal bleeding
-CTA + for diverticular blood mid sigmoid
-hx transanal resection of TV polyp 02/2023
-hx microscopic colitis and distant hx UC with chronic mesalamine use
-hx prior anemia with last admission in January with hbg 6 range on chronic iron
other medica problems:
-arthritis
-NIDDM- newly diagnosed hbgA1C 10.8 on admission
-hx atrial clip
-Hx CVA
-Afib.� Had clipping atrial appendage at [facility]- no on anticoagulation
PLAN:
etiology of rectal bleeding related to diverticular bleeding as noted with + CTA vs other
plan for IR intervention this am-- I spoke with IR and notified about continued large volume bleeding this am
trend hgb
if CTA neg consider flex
NPO
trend hbg and stool record
cont PPI
add iron studies with hx anemia to see if benefit from IV iron
hold oral iron for now with bleeding
remains on chronic Sulfasalazine
consider stopping turmeric on discharge as can increase bleeding tendency with hx multiple GI bleeds
DM management per hospitalist with noted marked elevated hbg A1c 10.8 on admission
reviewed with Dr. Anders
-
-
Thank you for consultation and allowing me to participate in the patient's care. Please call the risk and insurance consultant GI physician during the after hours with any questions or concerns.
--- NOTE | 2024-10-29 09:06 | PTCARENOTE ---
Pt awake/alert/oriented/pleasant. Pt w/ active gross rectal bleeding w/ clots. Mild abd cramping. GI at bedside - plan to send pt to [facility] when they are able to take her.
[2024-10-29 09:09] LABS: Glycohemoglobin (HgbA1c) 10.8 % (4.0-5.6)
[2024-10-29] MEDS: CYMBALTA DELAYED RELEASE 20 MG PO ×2 (09:16→19:53)
--- NOTE | 2024-10-29 09:31 | W.PN.HOSP.TC ---
Today's Communication/Plan
-
NPO for IR embolization
trend Hg, blood consent signed
Assessment / Plan
Assessment / Plan
Patient is a 84-year-old female with past medical history significant for essential hypertension, atrial fibrillation, hypothyroidism, GERD, colitis, diabetes mellitus type II and anemia who presented to [facility] ED for evaluation of rectal bleeding.
Abd/Pel CT: 1. ACUTE ACTIVE DIVERTICULAR HEMORRHAGE in the MID SIGMOID COLON.
2. Severe diverticulosis throughout the sigmoid colon.
3. Moderate to severe chronic bilateral renal disease.
4. Large bilateral nonobstructing intrarenal calculi.
5. 2.8 cm splenic mass which appears unchanged.
6. 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
7. Previous bilateral posterior instrumentation at L4/L5.
#acute active diverticular hemorrhage
#Hx GI bleed
- Admitted to IMU
- appreciate GI consult, IR consult for embolization
- IVF
- blood consent obtained
- trend Hg q 6 hours
#essential hypertension
- hold RESEARCH PROFESSOR valsartan
#atrial fibrillation
not on anticoagulant
- continue carvedilol
#hypothyroidism
- continue levothyroxine
#GERD
- continue omeprazole
#colitis
- continue sulfasalazine
#diabetes mellitus type II
- AccuCheck AC & HS
- SSI
- continue insulin glargine at 10 units
#anemia
- continue folic acid and ferrous sulfate
#Hx CVA
Code status: DNR
DVT prophylaxis: SCDs
51 minutes spent on patient care
Anticipated Discharge: 24 - 48 hours
Subjective/Interval History
-
Date of Service: October 29, 2024
continuing to have bloody bowel movements
no chest pain or shortness of breath
Objective Data
-
Labs:
Laboratory Results
10/29/24 10/29/24 10/29/24
01:24 05:57 07:23
WBC 8.4
Hgb 11.9 L 11.0 L
Hct 36.8 L 34.5 L
Plt Count 233
PT Cancelled
INR Cancelled
APTT
Sodium 139
Potassium 4.6
Chloride 108 H
Carbon Dioxide 21 L
BUN 28 H
Creatinine 0.9
Glucose 255 H
Calcium 9.3
10/29/24 10/29/24 10/29/24
09:27 12:00 18:00
WBC
Hgb Pending Pending
Hct Pending Pending
Plt Count
PT Pending
INR Pending
APTT Pending
Sodium
Potassium
Chloride
Carbon Dioxide
BUN
Creatinine
Glucose
Calcium
Vital Signs:
Vital Signs
Temp Pulse Resp BP Pulse Ox
98.0 F 105 13 154/89 88
10/28/24 19:12 10/29/24 09:00 10/29/24 09:00 10/29/24 09:00 10/29/24 08:00
Review of Systems
-
History Source: Patient
All other systems: Reviewed and negative
Physical Exam
-
General: Well Developed and No Apparent Distress
HEENT: Normocephalic, Atraumatic and Moist Mucous Membranes
Respiratory: Clear to Auscultation
Cardiac: Regular Rhythm and S1/S2; Negative Murmur, Rub or Gallop
GI: Soft, Nontender, Nondistended and Normal Bowel Sounds; Negative Organomegaly
Rectal: Deferred by Provider
Musculoskeletal: No Clubbing, No Cyanosis and No Edema
Skin: Negative Rash
Neuro: Nonfocal/Grossly Intact
Psych: Calm
Data Reviewed
-
Diagnostic Radiology: Report Reviewed by me
Labs: Labs Reviewed by me
[2024-10-29 09:51] LABS: INR 1.15; PT 15.1 Sec (11.4-14.6)
[2024-10-29 09:52] LABS: APTT 24.4 Sec (23.4-35.0)
--- NOTE | 2024-10-29 11:19 | PTCARENOTE ---
Pt continues w/ active rectal bleeding w/ clots. Repeat H&H sent to lab. Spoke w/ [facility] nurse - radiologist is coming to see pt bedside before she goes for procedure.
[2024-10-29 11:35] LABS: Hematocrit 30.2 % (37.0-47.0); Hemoglobin 9.8 g/dL (12.0-16.0)
[2024-10-29 11:56] LABS: Iron 61 ug/dl (37-170)
[2024-10-29 12:02] LABS: Glucose - Point of Care 267 mg/dl (70-99)
[2024-10-29 12:05] LABS: Percent Saturation 18 % (20-50); Total Iron Binding Capacity 335 ug/dl (265-497)
--- NOTE | 2024-10-29 14:47 | W.PN.UPDATE ---
Update Note
Progress Note Update
- Negative ABIGAIL arteriogram. Diminutive vessels with no areas of bleeding identified. No embolization performed.
- Orders placed. R leg flat for three hours.
--- NOTE | 2024-10-29 15:46 | PTCARENOTE ---
Patient arrived to IMU from ED. Patient slid from stretcher to bed assist x3. Patient turned in bed and had a large amount of blood clots. Dr. Anders made aware. Next hmg due at 1800. Patient AOx3. VSS. Neurovascular checks and site checks completed
per order. See worklist for documentation. Head of bed flat per order. IVF running per order. Call edwards within reach, bed in lowest position, and bed of wheels locked.
[2024-10-29] MEDS: TYLENOL 650 MG PO (15:58)
[2024-10-29] MEDS: NOVOLOG FLEXPEN-LOW RESISTANCE 2 UNITS SC (16:49)
[2024-10-29 16:57] LABS: Glucose - Point of Care 248 mg/dl (70-99)
--- NOTE | 2024-10-29 18:01 | PTCARENOTE ---
Patient complaining that she feels as if she did not empty her bladder completely. Patient urinated a small amount. Bladder scanned patient for 335. Care ongoing.
[2024-10-29 18:04] LABS: Hematocrit 27.4 % (37.0-47.0); Hemoglobin 8.7 g/dL (12.0-16.0)
--- NOTE | 2024-10-29 18:24 | W.PN.UPDATE ---
Update Note
Progress Note Update
Cross-coverage- Patient with active lower GI bleed and drop of Hb (HD stable but concerns of decompensation). Discussed with primary attending and RN. Ordered 1 unit blood (consent on record).
--- NOTE | 2024-10-29 18:30 | PTCARENOTE ---
Dr. Anders and Dr. Campuzano (hospitalist cross-coverage) that patients hmg dropped from 9.8 to 8.7 and patient had another large BM with a lot of blood clots. VSS. 1 unit of PRBC's ordered. Per blood bank, blood will take some time to be sent up due to
patient having an antibody. Care ongoing.
[2024-10-29 21:30] LABS: Glucose - Point of Care 346 mg/dl (70-99)
[2024-10-29] MEDS: LANTUS 0.1 UNITS SC (22:05)
[2024-10-30] VITALS (12 sets, daily range): BP systolic 105–156; BP diastolic 47–103
[2024-10-30 00:32] LABS: Hemoglobin 9.1 g/dL (12.0-16.0)
--- NOTE | 2024-10-30 01:58 | PTCARENOTE ---
Received patient at change of shift. Patient aao x3, able to make needs known. Understanding of bedrest d/to active GIB. 1u PRBC administered at start of shift as ordered, patient tolerated well, no adverse effects noted. Patient afib on monitor,
positive radial pulses, weak pedal pulses b/l. Lungs CTA throughout, shallow breathing noted. Patient continues to have loose/watery BM; bloody with small clots noted x2 thus far this shift. Patient saturated covidien with urine earlier this shift,
requested bedpan for second urine output. Denies pain. IVF running at 100ml/hr through left hand, left a/c int patent. Vascular checks completed last evening. Call edwards within reach, patient using call edwards appropriately. Will continue to monitor
patient closely.
[2024-10-30] MEDS: SYNTHROID 75 MCG PO (05:06)
[2024-10-30 05:42] LABS: Hematocrit 26.6 % (37.0-47.0); Hemoglobin 8.8 g/dL (12.0-16.0); Mean Corp Hgb Conc. 33.1 g/dL (33.0-37.0); Mean Corpuscular Hgb 31.9 pg (27.0-31.0); Mean Corpuscular Volume 96.4 fL (81.0-99.0); Mean Platelet Volume 12.8 fL (7.4-10.4); Platelet Count 183 10^3/uL (130-400); Red Blood Cell Count 2.76 10^6/uL (4.20-5.40); Red Cell Dist. Width 14.2 % (11.5-14.5); White Blood Cell Count 8.3 10^3/uL (4.8-10.8)
[2024-10-30 05:57] LABS: Blood Urea Nitrogen 20 mg/dl (7-17); Calcium 8.1 mg/dl (8.4-10.2); Carbon Dioxide 21 mmol/L (22-30); Chloride 112 mmol/L (98-107); Estimated Creatinine Clearance 58 ml/min; Glucose 254 mg/dl (70-99); Magnesium 1.7 mg/dl (1.6-2.3); Potassium 3.9 mmol/L (3.5-5.1); Sodium 138 mmol/L (135-145); eGFR > 60.00
[2024-10-30 07:58] LABS: Glucose - Point of Care 259 mg/dl (70-99)
[2024-10-30] MEDS: NSS 1000 IV ×2 (08:44→17:06)
[2024-10-30] MEDS: FOLVITE 0.8 MG PO (08:45)
[2024-10-30] MEDS: PROTONIX 40 MG PO (08:45)
[2024-10-30] MEDS: COREG 6.25 MG PO ×2 (08:45→19:31)
[2024-10-30] MEDS: CYMBALTA DELAYED RELEASE 20 MG PO ×2 (08:45→19:30)
[2024-10-30] MEDS: NOVOLOG FLEXPEN-LOW RESISTANCE 3 UNITS SC (08:46)
[2024-10-30] MEDS: TYLENOL 650 MG PO ×2 (09:26→21:09)
--- NOTE | 2024-10-30 11:01 | W.PN.HOSP.TC ---
Today's Communication/Plan
-
CBC every 8 hours
PRN transfusion
GI recommendations appreciated
May need to consult colorectal with recurrent
Assessment / Plan
Assessment / Plan
#Acute active diverticular hemorrhage
#Acute on chronic anemia
#H/O GI bleed
-Admitted to IMU; CT with signs of acute sigmoid diverticular bleed; hemoglobin from 11.9-8.8
-Was considered for thrombectomy however unable to be performed with negative ABIGAIL arteriogram
-Status post 1 unit of PRBC on 10/29/2024 for downtrending hemoglobin, stable since
-Not on any blood thinners or antiplatelet agents; on SCDs for DVT prophylaxis
-Iron studies with mild SUELLEN; continue to trend CBC every 8 hours through today
-Transfuse hemoglobin <7, signs of active bleeding or symptom
-May need to consider colonoscopy, colorectal surgery involvement
-Continue home iron and folate supplement
#Essential hypertension
-No known history of hypertensive systemic disease
-Home regimen includes valsartan, held in the context of bleeding
-Blood pressure remained stable
#Atrial fibrillation
-Nonvalvular; Home regimen includes carvedilol, not on AC due to GI bleed Hx
-Status post left atrial appendage clip
-Stable on home regimen
#hypothyroidism
-Unclear etiology, home regimen includes 75 mcg levothyroxine daily
-No signs or symptoms of abnormal thyroid function
#GERD
-No history of Malin's esophagus or erosive esophagitis
-Home regimen includes daily PPI
#Colitis
-Unspecified, suspect ulcerative colitis history for which she takes sulfasalazine currently
-Does have GIB related to diverticuli, no other signs of flare
#IDDM 2
-No known history of microvascular complication
-No recent hemoglobin A1c, Home regimen includes 15 units Lantus
-Currently on 10 units Lantus here due to dietary restrictions from GIB
-Home meds also include ARB for kidney protection, held for bleeding
#H/O CVA
-Likely related to history of AF, not on blood thinner due to GI bleed history
-Home regimen does not include antiplatelet medications or statin
Diet: Full liquids
Code status: DNR
DVT prophylaxis: SCDs
Anticipated Discharge: > 48 hours
Subjective/Interval History
-
Date of Service: October 30, 2024
Seen and examined at the bedside. Yesterday blood counts dropped and received 1 unit PRBC. Hemoglobin stable over last 3 draws no blood was received over this time. AFVSS
Remainder of labs stable. She denies any known hematochezia or other symptoms of GI bleeding.
Denies any new complaints as of this morning
Objective Data
-
Labs:
Laboratory Results
10/30/24 10/30/24 10/30/24
00:19 05:16 11:00
WBC 8.3
Hgb 9.1 L 8.8 L Pending
Hct 28.0 L 26.6 L Pending
Plt Count 183 D
Sodium 138
Potassium 3.9
Chloride 112 H
Carbon Dioxide 21 L
BUN 20 H
Creatinine 0.7
Glucose 254 H
Calcium 8.1 L
Vital Signs:
Vital Signs
Temp Pulse Resp BP Pulse Ox
97.5 F 98 16 156/94 97
10/30/24 07:20 10/30/24 10:00 10/30/24 10:00 10/30/24 08:58 10/30/24 08:58
I&O
10/29/24 10/30/24 10/31/24
06:59 06:59 06:59
Intake Total 2520 / 2520
Balance 2520 / 2520
Review of Systems
-
History Source: Patient
All other systems: Reviewed and negative
Physical Exam
-
General: Well Developed, No Apparent Distress and Obese
HEENT: Normocephalic, Atraumatic, Moist Mucous Membranes and Anicteric
Respiratory: Clear to Auscultation and Non Labored Respirations; Negative Accessory Resp Muscle Use
Cardiac: Regular Rhythm and S1/S2; Negative Murmur, Rub or Gallop
GI: Soft, Nontender, Nondistended and Normal Bowel Sounds
Musculoskeletal: No Clubbing, No Cyanosis and No Edema
Skin: Warm, Dry and Normal Turgor; Negative Rash
Neuro: AO x 3 and Nonfocal/Grossly Intact; Negative Tremors
Psych: Calm
Data Reviewed
-
Labs: Labs Reviewed by me and Discussed with Patient
--- NOTE | 2024-10-30 11:22 | W.PN.GI.CBS2 ---
Today's Communication / Plan
-
monitor H/H
full liquid diet
Assessment / Plan
-
The patient is an 84year-old female with a past medical history significant for atrial fibrillation off AC on daily ASA with atrial clip, CVA, right thoracotomy, GERD, NIDDM, hypothyroidism, microscopic colitis and possible hx ulcerative colitis
years ago with chronic sulfasalazine use, history of anemia with prior rectal bleeding. In 2022 she was noted with rectal mass and large rectal polyp on colonoscopy in 11/2022. She completed EUS with Dr. Gregorio with T1 vs T2 staging with some post
procedure bleeding. She went for transanal excision in February with bx TV adenoma and no further treatment needed. she returned on 07/2023 with recurrent bleeding. Repeat flex at that time with diverticulosis, blood in recto sigmoid polypectomy
scar but no source found. Pt returned again in 01/2024 with symptomatic anemia with hbg down to 6.2 and GI work up held. She now returns with recurrent bleeding passing large volumes of red blood since admission. CTA on admission with acute active
diverticular bleed in mid sigmoid along with other chronic findings.
At this time pt admits to bleeding since 10/28. She admits stool about every 2 hours overnight. She does also have some crampy pain with bleeding. She denies odynophagia, dysphagia, GERD, nausea, vomiting, diarrhea, constipation or black stools.
Pt states usual pattern is several formed brown stools daily. Daily ASA but no other NSAID or anticoagulation use.
-recurrent rectal bleeding
-CTA + for diverticular blood mid sigmoid
-hx transanal resection of TV polyp 02/2023
-hx microscopic colitis and distant hx UC with chronic mesalamine use
-hx prior anemia with last admission in January with hbg 6 range on chronic iron
other medica problems:
-arthritis
-NIDDM- newly diagnosed hbgA1C 10.8 on admission
-hx atrial clip
-Hx CVA
-Afib.� Had clipping atrial appendage at [facility]- no on anticoagulation
PLAN:
IR arteriogram 10/29-negative for active bleeding
Continue monitor H&H. Hb relatively stable
Full liquid diet today. If Hb stable okay to advance to low residual diet
Patient would like to hold off on colonoscopy at this point
With recurrent diverticular bleed -colorectal surgical eval would be the next step
Total Time Spent with Patient (in minutes): 35
Subjective
Subjective
Date of Service: October 30, 2024
No bleeding since last night .
Objective
Data Reviewed
Laboratory Data:
Laboratory Results
10/30/24 05:16
Laboratory Results
PT 15.1 Sec (11.4-14.6) H 10/29/24 09:27
INR 1.15 10/29/24 09:27
APTT 24.4 Sec (23.4-35.0) 10/29/24 09:27
Magnesium 1.7 mg/dl (1.6-2.3) 10/30/24 05:16
Total Bilirubin 0.5 mg/dl (0.2-1.3) 10/28/24 19:20
AST 37 U/L (14-36) H 10/28/24 19:20
ALT 28 U/L (0-35) 10/28/24 19:20
Alkaline Phosphatase 93 U/L (38-126) 10/28/24 19:20
Lipase 216 U/L (23-300) 10/28/24 19:20
Vital Signs and I&O:
Vital Signs
Temp Pulse Resp BP Pulse Ox
97.5 F 98 16 156/94 97
10/30/24 07:20 10/30/24 10:00 10/30/24 10:00 10/30/24 08:58 10/30/24 08:58
I&O
10/29/24 10/30/24 10/31/24
06:59 06:59 06:59
Intake Total 2520 / 2520
Balance 2520 / 2520
Physical Exam
Physical Exam
GI: Soft, Non Distended and Non Tender
[2024-10-30 12:16] LABS: Glucose - Point of Care 404 mg/dl (70-99)
[2024-10-30 12:22] LABS: Hematocrit 27.3 % (37.0-47.0); Hemoglobin 8.8 g/dL (12.0-16.0)
[2024-10-30 12:51] LABS: Glucose 404 mg/dl (70-99)
[2024-10-30] MEDS: NOVOLOG FLEXPEN-LOW RESISTANCE 6 UNITS SC (13:13)
[2024-10-30] MEDS: NOVOLOG FLEXPEN 5 UNITS SC ×2 (13:14→17:03)
[2024-10-30 16:41] LABS: Glucose - Point of Care 361 mg/dl (70-99)
--- NOTE | 2024-10-30 16:53 | CM ---
Patient with Dx recurrent rectal bleeding. Room air. Full liquids. Receiving IVF. Per nursing; A/O, requires assist 1.
Met with patient who resides alone in a mobile home [place] a [place]; 4 steps to enter.
She is independent with ADLs & ambulates with use of her RW.
Patient states she has been feeling weak with mobility.
The patient does not drive.
Her daughter Tonya assists her and does weekly grocery shopping.
DME - RW, SPC, rollator, w/c, glucometer
Prior [facility]
Prior [facility].
Prior [facility]
Message to Dr Price; patient requires assist of 2 for mobility, repots feeling weak, pls order PT.
Plan follow up after seen by PT.
[2024-10-30] MEDS: NOVOLOG FLEXPEN-LOW RESISTANCE 5 UNITS SC (17:05)
--- NOTE | 2024-10-30 17:05 | CM ---
Patient with Dx recurrent rectal bleeding. Room air. Full liquids. Receiving IVF. Per nursing; A/O, requires assist 1.
Met with patient who resides alone in a mobile home located [place] a [place] community; 4 steps to enter.
She is independent with ADLs & ambulates with use of her RW.
Patient states she has been feeling weak with mobility.
The patient does not drive.
Her daughter Tonya assists her and does weekly grocery shopping.
DME - RW, SPC, rollator, w/c, glucometer
Prior [facility]
Prior [facility].
Prior [facility]
Message to Dr Price; patient requires assist of 1 for mobility, reports feeling weak, pls order PT.
Plan follow up after seen by PT.
--- NOTE | 2024-10-30 17:49 | PTCARENOTE ---
OOB in chair all day, bsc to void. No stools noted today. Diet upgraded to full liquids, tolerating fine. Accu check read high lunch today stat venous glucose 404 - followed protocol- see flow sheet. IVF infusing as ordered. Tylenol given x1
this shift for Left sided neuropathy with good relief.
[2024-10-30 18:21] LABS: Hematocrit 26.7 % (37.0-47.0); Hemoglobin 8.5 g/dL (12.0-16.0)
[2024-10-30 21:09] LABS: Glucose - Point of Care 336 mg/dl (70-99)
[2024-10-30] MEDS: LANTUS 0.15 UNITS SC (21:10)
--- NOTE | 2024-10-30 21:16 | PTCARENOTE ---
Patient aaox3, oob to bedside chair at start of shift. Patient tolerated being oob to chair x2 hours. Assisted x1 to bsc, then to bed afterwards. Gait steady. Patient remains in afib, weak pp bl, normal radial pulses bl. Lungs cta throughout, 96% on
RA. BS active x4. Urinating clear, yellow urine without difficulty. RN contacted JAVIER Rios at start of shift as NSS timing out. [employer] instructed to encourage full liquid diet. Patient c/o pain, prn tylenol administered at this time. Will
continue to monitor patient closely.
--- NOTE | 2024-10-30 21:23 | PTCARENOTE ---
Offered to assist patient to bathe, patient states she was cleaned up earlier today and declined at this time.
[2024-10-31] VITALS (12 sets, daily range): BP systolic 104–165; BP diastolic 41–115
[2024-10-31] MEDS: SYNTHROID 75 MCG PO (03:17)
--- NOTE | 2024-10-31 04:25 | W.PN.UPDATE ---
Update Note
Progress Note Update
RN reports Oxygen level down to 80's briefly, while sleeping. no hx of sleep apnea. Apnea risk 3 moderate on admission screening. Will order oxygen via nc to keep 92% at HS. Patient asymptomatic.
labs pending
[2024-10-31 04:34] LABS: Blood Urea Nitrogen 13 mg/dl (7-17); Calcium 8.5 mg/dl (8.4-10.2); Carbon Dioxide 20 mmol/L (22-30); Chloride 114 mmol/L (98-107); Estimated Creatinine Clearance 68 ml/min; Glucose 230 mg/dl (70-99); Potassium 4.4 mmol/L (3.5-5.1); Sodium 139 mmol/L (135-145); eGFR > 60.00
[2024-10-31 04:55] LABS: % Basophils 0.4 % (0-2); % Eosinophils 4.2 % (0-6); % Immature Granulocytes 0.5 % (0-0.5); % Lymphocytes 20.6 % (20.5-51.1); % Neutrophils 61.3 % (42.2-75.2); Absolute Eosinophils 0.3 10^3/uL (0-0.7); Absolute Lymphocytes 1.6 10^3/uL (1.2-3.4); Absolute Neutrophils 4.8 10^3/uL (1.4-6.5); Hematocrit 24.5 % (37.0-47.0); Mean Corp Hgb Conc. 32.7 g/dL (33.0-37.0); Mean Corpuscular Hgb 31.6 pg (27.0-31.0); Mean Corpuscular Volume 96.8 fL (81.0-99.0); Nucleated Red Blood Cells % 0.3 %; Red Blood Cell Count 2.53 10^6/uL (4.20-5.40); Red Cell Dist. Width 14.3 % (11.5-14.5); White Blood Cell Count 7.8 10^3/uL (4.8-10.8)
[2024-10-31 05:29] LABS: Mean Platelet Volume 13.7 fL (7.4-10.4); Platelet Count 145 10^3/uL (130-400)
[2024-10-31] MEDS: NOVOLOG FLEXPEN-LOW RESISTANCE 2 UNITS SC (08:30)
[2024-10-31 08:43] LABS: Glucose - Point of Care 231 mg/dl (70-99)
[2024-10-31] MEDS: CYMBALTA DELAYED RELEASE 20 MG PO ×2 (09:31→20:20)
[2024-10-31] MEDS: PROTONIX 40 MG PO (09:31)
[2024-10-31] MEDS: COREG 6.25 MG PO ×2 (09:31→20:20)
[2024-10-31] MEDS: FOLVITE 0.8 MG PO (09:32)
[2024-10-31] MEDS: NOVOLIN N vial 0.12 UNITS SC (09:32)
[2024-10-31] MEDS: NOVOLOG FLEXPEN SC ×2 (09:33→18:14)
[2024-10-31] MEDS: NOVOLOG FLEXPEN 8 UNITS SC ×2 (09:35→12:40)
--- NOTE | 2024-10-31 10:17 | PN.CDI ---
CDI
- -
CDI:
Physician Documentation Request
Admit Date: 10/28/24 23:48
Dear Doctor Albert,
Patient admitted for diverticular hemorrhage.
10/30 Hospitalist PN: 'Acute active diverticular hemorrhage, Acute on chronic anemia...Status post 1 unit of PRBC on 10/29/2024 for downtrending hemoglobin, stable since'
Laboratory Tests
10/28/24 10/30/24 10/31/24
19:20 00:19 03:14
Hgb 13.2 9.1 L 8.0 L
Hct 42.2 28.0 L 24.5 L
Based on the above, could you clarify, in your progress note, which of the following is the most likely type of anemia you are evaluating, monitoring and/or treating?
Acute blood loss anemia
Acute blood loss anemia with baseline chronic anemia (Specify type)
Anemia of chronic disease - indicate if neoplastic disease, CKD or other
Chronic iron deficiency anemia due to blood loss
Other
Use of terms such as suspected, likely, concern for, or probable (associated with a specific diagnosis that is being evaluated, monitored, or treated as if it exists) are acceptable and can be coded in the inpatient setting, when documented at the
time of discharge.
Thank you,
Laura Hartmann RN, BSN
CDI Specialist
Available via [place] text
Please use your independent medical judgment in providing your response.
--- NOTE | 2024-10-31 11:19 | W.PN.HOSP.TC ---
Today's Communication/Plan
-
Trend CBC with PRN transfusions
Colorectal surgery consult
Titrate insulin for euglycemia
Nightly O2 with OP sleep study
PT eval
Assessment / Plan
Assessment / Plan
#Acute diverticular hemorrhage
#Acute blood loss anemia superimposed on chronic anemia
#H/O GI bleed
-Admitted to IMU; CT with signs of acute sigmoid diverticular bleed; hemoglobin from 11.9-8.8
-Was considered for thrombectomy however unable to be performed with negative ABIGAIL arteriogram
-Status post 1 unit of PRBC on 10/29/2024 for downtrending hemoglobin, stable since
-Not on any blood thinners or antiplatelet agents; on SCDs for DVT prophylaxis
-Iron studies with mild SUELLEN; continue to trend CBC daily for now
-Transfuse hemoglobin <7, signs of active bleeding or symptom
-May need to consider colonoscopy, colorectal surgery involvement
-Continue home iron and folate supplement
-Colorectal surgery consult
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
-No formal diagnosis, has had O2 desaturations while sleeping
-Was started on nightly O2 evening of 10/30
-No history of pulmonary hypertension
-OP follow-up with pulm for sleep study
#Essential hypertension
-No known history of hypertensive systemic disease
-Home regimen includes valsartan, held in the context of bleeding
-Blood pressure remained stable
#Atrial fibrillation
-Nonvalvular; Home regimen includes carvedilol, not on AC due to GI bleed Hx
-Status post left atrial appendage clip
-Stable on home regimen
#hypothyroidism
-Unclear etiology, home regimen includes 75 mcg levothyroxine daily
-No signs or symptoms of abnormal thyroid function
#GERD
-No history of Malin's esophagus or erosive esophagitis
-Home regimen includes daily PPI
#Colitis
-Unspecified, suspect ulcerative colitis history for which she takes sulfasalazine currently
-Does have GIB related to diverticuli, no other signs of flare
#IDDM 2
-No known history of microvascular complication; recent A1c 10.8%
-No recent hemoglobin A1c, Home regimen includes 15 units Lantus
-Has been persistently hyperglycemic here with blood glucose in 300s
-Increase Lantus to 20 units nightly and start 8 units aspart with meals
-One dose of NPH 12 units provided 10/31 pending increased Lantus dose
-Blood glucose goal 140-180
#H/O CVA
-Likely related to history of AF, not on blood thinner due to GI bleed history
-Home regimen does not include antiplatelet medications or statin
Diet: Full liquids
Code status: DNR
DVT prophylaxis: SCDs
Anticipated Discharge: 24 - 48 hours
Subjective/Interval History
-
Date of Service: October 31, 2024
Seen and examined at bedside. No acute events reported overnight. AFVSS this morning
Hemoglobin continues to slowly downtrend, down to 8.0 on last check with 11 AM H/H pending
Patient has not had a bowel movement but denies any known bleeding. Denies chest pain, dyspnea, lightheadedness or fatigue
Objective Data
-
Labs:
Laboratory Results
10/31/24 10/31/24 10/31/24
03:14 03:14 03:14
WBC 7.8
Hgb Cancelled 8.0 L
Hct Cancelled 24.5 L
Plt Count 145 D
Sodium 139
Potassium 4.4
Chloride 114 H
Carbon Dioxide 20 L
BUN 13
Creatinine 0.6
Glucose 230 H
Calcium 8.5
10/31/24
11:00
WBC
Hgb Pending
Hct Pending
Plt Count
Sodium
Potassium
Chloride
Carbon Dioxide
BUN
Creatinine
Glucose
Calcium
Vital Signs:
Vital Signs
Temp Pulse Resp BP Pulse Ox
97.9 F 82 23 152/90 99
10/31/24 07:05 10/31/24 10:00 10/31/24 10:00 10/31/24 08:00 10/31/24 08:00
I&O
10/30/24 10/31/24 11/01/24
06:59 06:59 06:59
Intake Total 2520 / 2520 2650 / 2650
Output Total 300 / 300
Balance 2520 / 2520 2350 / 2350
Review of Systems
-
History Source: Patient
All other systems: Reviewed and negative
Physical Exam
-
General: Well Developed, No Apparent Distress, Comfortable and Obese
HEENT: Normocephalic, Atraumatic, Moist Mucous Membranes, Anicteric and Other (large neck circumference)
Respiratory: Clear to Auscultation and Non Labored Respirations; Negative Accessory Resp Muscle Use
Cardiac: Regular Rhythm and S1/S2; Negative Murmur, Rub or Gallop
GI: Soft, Nontender, Nondistended and Normal Bowel Sounds
Musculoskeletal: No Clubbing, No Cyanosis and No Edema
Skin: Warm and Dry; Negative Rash
Neuro: AO x 3 and Nonfocal/Grossly Intact
Psych: Calm
Data Reviewed
-
Labs: Labs Reviewed by me, Discussed with Physician (GI, colorectal) and Discussed with Patient
--- NOTE | 2024-10-31 11:21 | W.PN.GI.CBS2 ---
Today's Communication / Plan
-
low residual diet
CRS eval
Assessment / Plan
-
The patient is an 84year-old female with a past medical history significant for atrial fibrillation off AC on daily ASA with atrial clip, CVA, right thoracotomy, GERD, NIDDM, hypothyroidism, microscopic colitis and possible hx ulcerative colitis
years ago with chronic sulfasalazine use, history of anemia with prior rectal bleeding. In 2022 she was noted with rectal mass and large rectal polyp on colonoscopy in 11/2022. She completed EUS with Dr. Gregorio with T1 vs T2 staging with some post
procedure bleeding. She went for transanal excision in February with bx TV adenoma and no further treatment needed. she returned on 07/2023 with recurrent bleeding. Repeat flex at that time with diverticulosis, blood in recto sigmoid polypectomy
scar but no source found. Pt returned again in 01/2024 with symptomatic anemia with hbg down to 6.2 and GI work up held. She now returns with recurrent bleeding passing large volumes of red blood since admission. CTA on admission with acute active
diverticular bleed in mid sigmoid along with other chronic findings.
At this time pt admits to bleeding since 10/28. She admits stool about every 2 hours overnight. She does also have some crampy pain with bleeding. She denies odynophagia, dysphagia, GERD, nausea, vomiting, diarrhea, constipation or black stools.
Pt states usual pattern is several formed brown stools daily. Daily ASA but no other NSAID or anticoagulation use.
-recurrent rectal bleeding
-CTA + for diverticular blood mid sigmoid
-hx transanal resection of TV polyp 02/2023
-hx microscopic colitis and distant hx UC with chronic mesalamine use
-hx prior anemia with last admission in January with hbg 6 range on chronic iron
other medica problems:
-arthritis
-NIDDM- newly diagnosed hbgA1C 10.8 on admission
-hx atrial clip
-Hx CVA
-Afib.� Had clipping atrial appendage at [facility]- no on anticoagulation
PLAN:
IR arteriogram 10/29-negative for active bleeding
Continue monitor H&H. Hb relatively stable
okay to advance to low residual diet
Patient would like to hold off on colonoscopy at this point
Discussed With recurrent diverticular bleed -colorectal surgical eval would be the next step. Patient would like to discuss with CRS. discussed with hospitalist
no further recommendations. will s/o
Total Time Spent with Patient (in minutes): 35
Subjective
Subjective
Date of Service: October 31, 2024
No Bleeding over 24 hours
Objective
Data Reviewed
Laboratory Data:
Laboratory Results
10/31/24 03:14
Laboratory Results
PT 15.1 Sec (11.4-14.6) H 10/29/24 09:27
INR 1.15 10/29/24 09:27
APTT 24.4 Sec (23.4-35.0) 10/29/24 09:27
Magnesium 1.7 mg/dl (1.6-2.3) 10/30/24 05:16
Total Bilirubin 0.5 mg/dl (0.2-1.3) 10/28/24 19:20
AST 37 U/L (14-36) H 10/28/24 19:20
ALT 28 U/L (0-35) 10/28/24 19:20
Alkaline Phosphatase 93 U/L (38-126) 10/28/24 19:20
Lipase 216 U/L (23-300) 10/28/24 19:20
Vital Signs and I&O:
Vital Signs
Temp Pulse Resp BP Pulse Ox
97.9 F 82 23 152/90 95
10/31/24 07:05 10/31/24 10:00 10/31/24 10:00 10/31/24 08:00 10/31/24 11:17
I&O
10/30/24 10/31/24 11/01/24
06:59 06:59 06:59
Intake Total 2519 / 0 2650 / 2650
Output Total 300 / 300
Balance 2519 / 2520 235 / 235
Physical Exam
Physical Exam
GI: Soft, Non Distended and Non Tender
[2024-10-31] MEDS: NOVOLOG FLEXPEN-LOW RESISTANCE 4 UNITS SC ×2 (12:39→18:14)
[2024-10-31 12:49] LABS: Glucose - Point of Care 313 mg/dl (70-99)
--- NOTE | 2024-10-31 13:07 | CON.CRS ---
Consultation
-
Date/Time Consultation Requested: 10/31/2024, 10:47
Date/Time Consultation Performed: 10/31/2024, 14:00
Requesting Provider: Marcel Price DO
Performing Provider: Pj Santamaria MD
Reason for Consultation: LGIB
Medical History
-
Chief Complaint: rectal bleeding
History of Present Illness:
84-year-old female, with a past medical history of microscopic ulcerative colitis as well as recurrent GI bleeding, presents to [facility] on 10/28/2024 complaining of multiple episodes of bloody diarrhea. She has been getting while
hospitalized for the past several days and has received 1 unit of packed red blood cells. Patient states the last time she bled was about 5 minutes ago. She is on aspirin 81 mg at home but is on no other blood thinners. She denies any abdominal
pain. She is eating without difficulty. She has had several episodes of bleeding in the past treated nonoperatively. CT of the abdomen pelvis on 10/28/2024 showed no acute active diverticular hemorrhage in the mid sigmoid colon with severe
diverticulosis throughout the sigmoid colon. She underwent IR arteriogram on 10/29/2024 which was negative for any active bleeding. Her hemoglobin today is 8.0 but initially her hemoglobin was 13.2 on admission. She denies a history of abdominal
surgeries. GI has been following during this admission. Given persistent bleeding, we will been consulted for further surgical opinion.
Past Medical History
Past Medical History: Arrhythmias (afib), GERD, Hypothyroidism, NIDDM and Other (colitis, anemia)
Past Surgical History: Other (lumbar fusion 2014 Collapsed lung Right thumb fusion Left wrist Bilateral L5 TFESI 02/20/2019 Right L4-5,L5-S1 IAFJI 03/11/2019 Bilateral L5 TFESI 12/25/2019 B/L L4-L5, L5-S1 FJI 01/20/2020
Right humerus ORIF 08.23.2020 Bilateral L5 TFESI 12/23/2020 SPB Right r)
Social History
Tobacco: Former Smoker
Alcohol: None
Drug: None
Family History
Family History: Reviewed & Not Pertinent
Allergies / Home Medications
Allergy/AdvReac Type Severity Reaction Status Date / Time
adhesive Allergy Rash Verified 10/28/24 19:15
amoxicillin [From Augmentin] Allergy DIARRHEA Verified 10/28/24 19:15
clavulanic acid Allergy DIARRHEA Verified 10/28/24 19:15
[From Augmentin]
hydroxychloroquine Allergy rash/'irregular Verified 10/28/24 19:15
[From Plaquenil] heart
rhythm'
latex Allergy Rash Verified 10/28/24 19:15
leflunomide Allergy Rash Verified 10/28/24 19:15
naproxen [From Naprosyn] Allergy Shortness Verified 10/28/24 19:15
of Breath
nickel Allergy Rash Verified 10/28/24 19:15
�Medication �Instructions �Recorded �Confirmed �Type
duloxetine 20 mg capsule,delayed 20 mg PO BID #60 caps 08/23/21 10/28/24 Rx
release
cholecalciferol (vitamin D3) 25 25 mcg PO DAILY Supplement 12/04/22 10/28/24 History
mcg (1,000 unit) capsule (Vitamin
D3)
therapeutic multivitamin 1 tab PO DAILY Supplement 12/04/22 10/28/24 History
coenzyme Q10 100 mg capsule 200 mg PO DAILY Supplement 03/10/23 10/28/24 History
(CoQ-10)
sulfasalazine 500 mg tablet 1,000 mg PO HS Gastrointestinal 03/10/23 10/28/24 History
Issue
cartilage 40 mg-collagen II 10 1 tab PO DAILY Supplement 07/26/23 10/28/24 History
mg-boron 5 mg-hyaluronate 3.3 mg
tablet ([facility])
folic acid 800 mcg tablet 0.8 mg PO DAILY Supplement 07/26/23 10/28/24 History
valsartan 160 mg tablet 160 mg PO DAILY Blood Pressure 07/26/23 10/28/24 History
Nervive 1 tab PO DAILY Supplement 02/08/24 10/28/24 History
alpha lipoic acid 100 mg capsule 100 mg PO DAILY Supplement 02/08/24 10/28/24 History
levothyroxine 75 mcg tablet 75 mcg PO DAILY Thyroid 02/08/24 10/28/24 History
magnesium glycinate 600 mg PO DAILY Supplement ##0 02/08/24 10/28/24 History
omeprazole 40 mg capsule,delayed 40 mg PO DAILY Gastrointestinal 02/08/24 10/28/24 History
release Issue
turmeric 400 mg capsule 500 mg PO DAILY Supplement 02/08/24 10/28/24 History
ferrous sulfate 325 mg (65 mg 325 mg PO Q48H #14 tabs 02/10/24 10/28/24 Rx
iron) tablet
carvedilol 6.25 mg tablet (Coreg) 6.25 mg PO BID Blood Pressure 10/28/24 10/28/24 History
insulin glargine-yfgn 100 unit/mL 15 unit SC HS diabetes 10/28/24 10/28/24 History
(3 mL) subcutaneous pen
Review of Systems
-
History Source: Patient
All other systems: Negative unless noted
Abdomen/GI: Bloody Stools
A 10 point review of systems was completed, and was negative except as per HPI.
Physical Exam
Vital Signs
Temp 97.9 F 10/31/24 07:05
Pulse 82 10/31/24 10:00
Resp Rate 23 10/31/24 10:00
Blood pressure 152/90 10/31/24 08:00
SaO2 95 10/31/24 11:17
Body Mass Index (BMI) 38.3
Lab Results / Allergies
10/31/24 03:14
WBC 7.8 10^3/uL (4.8-10.8) 10/31/24 03:14
Hgb 8.0 g/dL (12.0-16.0) L 10/31/24 03:14
Hgb Cancelled 10/31/24 03:14
Hct 24.5 % (37.0-47.0) L 10/31/24 03:14
Hct Cancelled 10/31/24 03:14
Plt Count 145 10^3/uL (130-400) D 10/31/24 03:14
Abs Immat Gran (auto) 0.0 10^3/uL (0-0.05) 10/31/24 03:14
Neutrophils % 61.3 % (42.2-75.2) 10/31/24 03:14
Allergy/AdvReac Type Severity Reaction Status Date / Time
adhesive Allergy Rash Verified 10/28/24 19:15
amoxicillin [From Augmentin] Allergy DIARRHEA Verified 10/28/24 19:15
clavulanic acid Allergy DIARRHEA Verified 10/28/24 19:15
[From Augmentin]
hydroxychloroquine Allergy rash/'irregular Verified 10/28/24 19:15
[From Plaquenil] heart
rhythm'
latex Allergy Rash Verified 10/28/24 19:15
leflunomide Allergy Rash Verified 10/28/24 19:15
naproxen [From Naprosyn] Allergy Shortness Verified 10/28/24 19:15
of Breath
nickel Allergy Rash Verified 10/28/24 19:15
Physical Exam
General: Well Developed, Well Nourished and No Apparent Distress
GI: Soft, Non Tender and Non Distended
Neuro: AO x 3
Psych: Calm
Data Reviewed
-
CT Scan: Image Personally Visualized and interpreted, Report Reviewed by me and Discussed with Patient
Labs: Labs Reviewed by me, Discussed with Physician and Discussed with Patient
Old Records: Reviewed
Assessment / Plan
-
Assessment: 84 yo female with a PMH of rectal bleeding, presents with recurrent bleeding with CTA positive for diverticular bleeding in the mid sigmoid
Plan:
-Talked to patient at length regarding a robotic sigmoidectomy given her persistent bleeding. She is in agreement to proceed. She has been added to the OR schedule tomorrow morning, 7:30am with Dr. Santamaria.
-Start clear liquids today. N.p.o. and IV fluids at midnight.
- Start bowel prep now. 4 L GoLytely ordered as well as oral antibiotics.
- Preop IV Invanz ordered prior to surgery.
- 1 g tranexamic acid now
- Will reevaluate in AM. Continue to trend hemoglobin.
[2024-10-31 14:50] LABS: Hematocrit 26.1 % (37.0-47.0); Hemoglobin 8.3 g/dL (12.0-16.0)
[2024-10-31] MEDS: NEOMYCIN 1000 MG PO ×2 (15:00→17:09)
[2024-10-31] MEDS: TRANEXAMIC ACID 110 MG IV (15:23)
[2024-10-31] MEDS: NULYTELY SOLUTION 4 LITERS PO (15:24)
[2024-10-31] MEDS: FLAGYL 1000 MG PO ×2 (15:33→17:10)
--- NOTE | 2024-10-31 17:27 | CM ---
Patient with Dx recurrent rectal bleeding. Plan OR tomorrow for robotic sigmoidectomy. Room air. Receiving IV Abx. PT 10/31; refused.
Plan follow up after seen by PT.
[2024-10-31 17:58] LABS: Glucose - Point of Care 318 mg/dl (70-99)
--- NOTE | 2024-10-31 19:13 | PTCARENOTE ---
see nursing assessmnet. pt started bowel prep for sigmod surgery tomorrow. afib on monitor. oob in chair all day. pt had one black soft bm with some bright red blood noted mixed with urine in commode. hospitalist made aware. repeat hemoglobin 8.3.
[2024-10-31 21:10] LABS: Glucose - Point of Care 251 mg/dl (70-99)
[2024-10-31] MEDS: LANTUS 0.2 UNITS SC (22:18)
--- NOTE | 2024-10-31 22:28 | PTCARENOTE ---
Patient aao x3, denies pain, OOB x3 hours at start of shift to bsc and chair. Tolerated well. Is drinking Colyte as ordered, plan for NPO at [place]. Contacted JAVIER Murphy, discussed Lantus at hs. Instructed to administer as bg has been running
high, will eval with am labs and monitor. Afib on the monitor, positive pulses. SCDs in place. Lungs cta throughout. 98% on ra. BS active x4. PM Hcg cloth bath provided, linens changed. Patient currently resting in bed with call edwards within reach.
Will continue to monitor patient closely.
[2024-11-01] VITALS (17 sets, daily range): BP systolic 112–167; BP diastolic 48–80; BMI 41.2
[2024-11-01] MEDS: NSS 1000 IV
--- NOTE | 2024-11-01 00:06 | PTCARENOTE ---
Awaiting correct doses of antibiotics from pharmacy. Will administer once correct doses received for metronidazole and Neomycin.
[2024-11-01] MEDS: NEOMYCIN 1000 MG PO (00:09)
[2024-11-01] MEDS: FLAGYL 1000 MG PO (00:15)
[2024-11-01] MEDS: TYLENOL 650 MG PO ×2 (01:12→22:13)
[2024-11-01] MEDS: SYNTHROID PO (05:08)
[2024-11-01 05:52] LABS: Blood Urea Nitrogen 11 mg/dl (7-17); Calcium 8.6 mg/dl (8.4-10.2); Carbon Dioxide 17 mmol/L (22-30); Chloride 113 mmol/L (98-107); Estimated Creatinine Clearance 60 ml/min; Glucose 201 mg/dl (70-99); Potassium 4.2 mmol/L (3.5-5.1); Sodium 138 mmol/L (135-145); eGFR > 60.00
[2024-11-01 06:01] LABS: % Basophils 0.5 % (0-2); % Eosinophils 3.6 % (0-6); % Immature Granulocytes 0.3 % (0-0.5); % Lymphocytes 17.4 % (20.5-51.1); % Monocytes 13.1 % (1.7-9.3); % Neutrophils 65.1 % (42.2-75.2); Absolute Eosinophils 0.3 10^3/uL (0-0.7); Absolute Lymphocytes 1.5 10^3/uL (1.2-3.4); Absolute Monocytes 1.2 10^3/uL (0.1-0.6); Absolute Neutrophils 5.8 10^3/uL (1.4-6.5); Hematocrit 23.4 % (37.0-47.0); Hemoglobin 7.8 g/dL (12.0-16.0); Mean Corp Hgb Conc. 33.3 g/dL (33.0-37.0); Mean Corpuscular Hgb 31.6 pg (27.0-31.0); Mean Corpuscular Volume 94.7 fL (81.0-99.0); Mean Platelet Volume 12.7 fL (7.4-10.4); Nucleated Red Blood Cells % 0.2 %; Platelet Count 149 10^3/uL (130-400); Red Blood Cell Count 2.47 10^6/uL (4.20-5.40); Red Cell Dist. Width 14.2 % (11.5-14.5); White Blood Cell Count 8.9 10^3/uL (4.8-10.8)
--- NOTE | 2024-11-01 07:21 | W.PN.UPDATE ---
Update Note
Progress Note Update
She has an antibody and more time is needed to complete the crossmatch. I have ordered 2 units as I anticipate her hemoglobin will continue to drop with hemodilution, mild active bleeding, and surgery. I explained this to the patient and she
agrees.
--- NOTE | 2024-11-01 08:29 | PN.DE.MGMTRT ---
Insulin Management
- -
11/01/2024: Diabetes Management Consult
84-year-old female who presented to the ED on 10/28/2024 c/o multiple episodes of bloody diarrhea.
PMH: A- Fib, CAD, HTN, HLD, Hypothyroidism, Ulcerative colitis, rectal tumor resected March 2023, recurrent GIB and T2DM, A1C 10.8%, Cr 0.9, eGFR>60.
Her current basal/bolus regimen includes: AC NovoLog 8 units and Lantus 20 units @ HS.
Pt lives alone but Dtr and Grand-Dtr live near by, she was confident that she would be fine managing her diabetes meds at home during her last admission.
Currently Pt is off the floor to the OR for a robotic sigmoidectomy given her persistent bleeding today with colorectal surgery.
Pt has been NPO. Her glucose has remained elevated >200, HS glucose was 251, FBG 201 V this AM, premeal range yesterday was 231 to 318, requiring additional 2-4 units of corrective. Will increase Lantus to 22 units and AC NovoLog to 12 units, when
diet has been resumed.
Will cont to monitor
Diabetes History
- -
Type of Diabetes: 2 requiring insulin
Pre-Admission Diabetes Regimen
11/01/24
05:17
Creatinine 0.7
Lab Results
Hemoglobin A1c 10.8 % (4.0-5.6) H 10/29/24 05:57
Insulin Pump Settings
IP Diabetes Regimen
10/31/24 10/31/24 10/31/24
08:31 12:38 17:46
Glucose
POC Glucose 231 H 313 H 318 H
10/31/24 11/01/24
20:59 05:17
Glucose 201 H
POC Glucose 251 H
Meal type: Breakfast
Amount consumed: 100%
Patient Education
--- NOTE | 2024-11-01 08:49 | PTCARENOTE ---
Patient taken to OR prior to start of this shift.
[2024-11-01 09:47] LABS: Glucose - Point of Care 223 mg/dl (70-99)
[2024-11-01 12:17] LABS: Glucose - Point of Care 306 mg/dl (70-99)
--- NOTE | 2024-11-01 12:47 | W.IMMPOSTOP ---
Surgical Immed Post Op Note
-
Primary Surgeon: Pj Santamaria MD
Assistants: Elias Magaña MD and ALLEN Hassan
Pre-op Diagnosis: Sigmoid diverticular bleeding
Post-op Diagnosis: Same
Procedure Performed: Robotic sigmoid colectomy with intracorporeal anastomosis
Anesthesia Type: GET
Specimen / Cultures: Sigmoid colon (suture is proximal); proximal rectum (suture is proximal)
Estimated Blood Loss: 25cc
Complications: None
Operative Findings: Sigmoid diverticular disease
Ink at rectosigmoid (previous polyp resection) included in the specimen
28mm EEA anastomosis
Normal leak test
1 unit of blood transfused for preoperative anemia
--- NOTE | 2024-11-01 13:02 | W.PN.HOSP.TC ---
Today's Communication/Plan
-
Clear liquid diet for now
Follow-up pending CBC and trend
PT/OT/OOB tomorrow
SNF planning
Assessment / Plan
Assessment / Plan
#Acute diverticular hemorrhage s/p sigmoidectomy (POD 0)
#Acute blood loss anemia superimposed on chronic anemia
#H/O GI bleed
-Admitted to IMU; CT with signs of acute sigmoid diverticular bleed; hemoglobin from 11.9-8.8
-Was considered for thrombectomy however unable to be performed with negative ABIGAIL arteriogram
-Status post 1 unit of PRBC on 10/29/2024 and 1 additional unit on 11/01 in OR; 2 units total
-Not on any blood thinners or antiplatelet agents; on SCDs for DVT prophylaxis
-Iron studies with mild SUELLEN; continue to trend CBC daily for now
-Transfuse hemoglobin <7, signs of active bleeding or symptom
-Continue home iron and folate supplement
-Colorectal surgery and GI following
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
-No formal diagnosis, has had O2 desaturations while sleeping
-Was started on nightly O2 evening of 10/30
-No history of pulmonary hypertension
-OP follow-up with pulm for sleep study
#Essential hypertension
-No known history of hypertensive systemic disease
-Home regimen includes valsartan, held in the context of bleeding
-Blood pressure remained stable
#Atrial fibrillation
-Nonvalvular; Home regimen includes carvedilol, not on AC due to GI bleed Hx
-Status post left atrial appendage clip
-Stable on home regimen
#hypothyroidism
-Unclear etiology, home regimen includes 75 mcg levothyroxine daily
-No signs or symptoms of abnormal thyroid function
#GERD
-No history of Malin's esophagus or erosive esophagitis
-Home regimen includes daily PPI
#Colitis
-Unspecified, suspect ulcerative colitis history for which she takes sulfasalazine currently
-Does have GIB related to diverticuli, no other signs of flare
#IDDM 2
-No known history of microvascular complication; recent A1c 10.8%
-No recent hemoglobin A1c, Home regimen includes 15 units Lantus
-Has been persistently hyperglycemic here with blood glucose in 300s
-Increase Lantus to 20 units nightly and start 8 units aspart with meals
-One dose of NPH 12 units provided 10/31 pending increased Lantus dose
-Blood glucose goal 140-180
-DM consult
#H/O CVA
-Likely related to history of AF, not on blood thinner due to GI bleed history
-Home regimen does not include antiplatelet medications or statin
Diet: CLD, advance per colorectal
Code status: DNR
DVT prophylaxis: SCDs
Anticipated Discharge: 24 - 48 hours
Subjective/Interval History
-
Date of Service: November 01, 2024
Seen and examined at the bedside. Status post sigmoidectomy with colorectal surgery. 1 unit PRBC given in OR. No acute events overnight. AFVSS
Procedure went well and without complication. Repeat labs following OR pending
Patient denies any acute complaints. Pain well-managed at this time
Objective Data
-
Labs:
Laboratory Results
11/01/24 11/01/24 11/01/24
05:17 05:42 12:53
WBC Cancelled 8.9 Pending
Hgb Cancelled 7.8 L Pending
Hct Cancelled 23.4 L Pending
Plt Count Cancelled 149 Pending
Sodium 138
Potassium 4.2
Chloride 113 H
Carbon Dioxide 17 L
BUN 11
Creatinine 0.7
Glucose 201 H
Calcium 8.6
Vital Signs:
Vital Signs
Temp Pulse Resp BP Pulse Ox
97.0 F 82 20 149/56 98
11/01/24 03:25 11/01/24 04:00 11/01/24 04:00 11/01/24 04:00 11/01/24 04:00
I&O
10/31/24 11/01/24 11/02/24
06:59 06:59 06:59
Intake Total 2650 / 2650
Output Total 300 / 300
Balance 2350 / 2350
Review of Systems
-
History Source: Patient
All other systems: Reviewed and negative
Physical Exam
-
General: Well Developed, No Apparent Distress, Comfortable and Morbidly Obese
HEENT: Normocephalic, Atraumatic, Moist Mucous Membranes and Anicteric
Respiratory: Clear to Auscultation and Non Labored Respirations; Negative Accessory Resp Muscle Use
Cardiac: S1/S2 and Irregular Rhythm; Negative Murmur, Rub, Gallop or Tachycardic
GI: Soft, Nondistended, Normal Bowel Sounds and Tender (Mild tenderness at surgical incision site)
Musculoskeletal: No Clubbing, No Cyanosis and No Edema
Skin: Warm, Dry and Normal Turgor; Negative Rash
Neuro: AO x 3 and Nonfocal/Grossly Intact; Negative Tremors
Psych: Calm
Data Reviewed
-
Labs: Labs Reviewed by me, Discussed with Physician (Colorectal surgery) and Discussed with Patient
[2024-11-01] MEDS: NOVOLOG FLEXPEN-LOW RESISTANCE SC ×3 (13:16→16:27)
[2024-11-01] MEDS: FOLVITE PO (13:17)
[2024-11-01] MEDS: COREG PO (13:17)
[2024-11-01] MEDS: PROTONIX PO (13:17)
[2024-11-01] MEDS: NOVOLOG FLEXPEN SC ×4 (13:17→19:10)
[2024-11-01] MEDS: CYMBALTA DELAYED RELEASE PO (13:17)
[2024-11-01 13:20] LABS: Glucose - Point of Care 295 mg/dl (70-99)
[2024-11-01] MEDS: NOVOLOG vial 4 UNITS SC (13:26)
[2024-11-01 14:18] LABS: Hematocrit 29.5 % (37.0-47.0); Hemoglobin 9.7 g/dL (12.0-16.0); Mean Corp Hgb Conc. 32.9 g/dL (33.0-37.0); Mean Corpuscular Hgb 31.5 pg (27.0-31.0); Mean Corpuscular Volume 95.8 fL (81.0-99.0); Mean Platelet Volume 12.4 fL (7.4-10.4); Platelet Count 202 10^3/uL (130-400); Red Blood Cell Count 3.08 10^6/uL (4.20-5.40); Red Cell Dist. Width 14.9 % (11.5-14.5); White Blood Cell Count 12.7 10^3/uL (4.8-10.8)
[2024-11-01] MEDS: DILAUDID 0.25 MG IV (14:32)
[2024-11-01] MEDS: NORMOSOL-R/PLASMALYTE-A 1000 IV (14:35)
[2024-11-01] MEDS: NSS IV (15:21)
[2024-11-01 15:31] LABS: Glucose - Point of Care 237 mg/dl (70-99)
--- NOTE | 2024-11-01 15:52 | PTCARENOTE ---
Received patient from PACU via bed accompanied by 2 PACU RNs with LR infusing at 100ml/hr. Patient Ox3, drowsy but easily arousable. Accu checks with insulin coverage done while patient in OR/PACU per report: 12:15 patient given 12 units for blood
glucose 306 and at 13:26 patient given 4 units for blood glucose 295. Repeat accu check done on arrival as follow up with result 237. Reviewed with Dr Price who instructed to do accu checks AC &HS as patient allowed clear liquid diet but to check in
2hrs; this would be the time for her dinner accu check. Also instructed no need to cover this blood sugar of 237 as it was a follow up on arrival from PACU.
[2024-11-01] MEDS: TYLENOL PO (17:10)
--- NOTE | 2024-11-01 17:13 | PTCARENOTE ---
Patient returned from PACU with verbal order sheet that patient does not need 2nd unit PRBCs.
[2024-11-01] MEDS: NOVOLOG FLEXPEN-LOW RESISTANCE 2 UNITS SC (19:16)
[2024-11-01] MEDS: CYMBALTA DELAYED RELEASE 20 MG PO (22:13)
[2024-11-01] MEDS: COREG 6.25 MG PO (22:13)
[2024-11-01] MEDS: LANTUS 0.22 UNITS SC (22:27)
[2024-11-01] MEDS: ANESTHETIC LOZENGE PO (22:34)
[2024-11-01] MEDS: ANESTHETIC LOZENGE 1 LOZENGE PO (22:35)
[2024-11-01 22:39] LABS: Glucose - Point of Care 203 mg/dl (70-99)
--- NOTE | 2024-11-01 23:33 | PTCARENOTE ---
Assumed care of pt from alex GASTELUM. Pt aaox3. afib on monitor. 95% on 2L. Pt c/o 5/10 aching pain in her lower abdomen and requested Tylenol. LOIS Tylenol administered (see MAR). Pt now rates her pain a /10. Pt also c/o throat irritation. Notified
ELLEN Piper and received Rx for Lozenge (see MAR). Pt states her throat feels 'much better.' Abdominal surgical sites are approximated with surgical adhesive present and open to air. Surrounding skin is clean, dry, and intact. Gates in place
draining paramjit urine. Gates care completed. Normosol infusing @ 100 mL/hr. Pt resting in bed with call edwards in reach.
[2024-11-02] VITALS (13 sets, daily range): BP systolic 106–156; BP diastolic 60–105; PULSE 80–85; O2SAT 95
[2024-11-02] MEDS: TYLENOL PO (01:05)
[2024-11-02] MEDS: NORMOSOL-R/PLASMALYTE-A 1000 IV ×2 (01:38→17:10)
[2024-11-02] MEDS: SYNTHROID 75 MCG PO (04:51)
[2024-11-02] MEDS: TYLENOL 650 MG PO ×5 (04:51→21:09)
[2024-11-02 05:14] LABS: % Basophils 0.2 % (0-2); % Immature Granulocytes 0.5 % (0-0.5); % Monocytes 8.8 % (1.7-9.3); % Neutrophils 85.5 % (42.2-75.2); Absolute Immature Granulocytes 0.1 10^3/uL (0-0.05); Absolute Lymphocytes 0.8 10^3/uL (1.2-3.4); Absolute Monocytes 1.4 10^3/uL (0.1-0.6); Absolute Neutrophils 13.8 10^3/uL (1.4-6.5); Hematocrit 28.1 % (37.0-47.0); Hemoglobin 9.3 g/dL (12.0-16.0); Mean Corp Hgb Conc. 33.1 g/dL (33.0-37.0); Mean Corpuscular Hgb 31.6 pg (27.0-31.0); Mean Corpuscular Volume 95.6 fL (81.0-99.0); Mean Platelet Volume 12.3 fL (7.4-10.4); Nucleated Red Blood Cells % 0.2 %; Platelet Count 201 10^3/uL (130-400); Red Blood Cell Count 2.94 10^6/uL (4.20-5.40); Red Cell Dist. Width 15.3 % (11.5-14.5); White Blood Cell Count 16.2 10^3/uL (4.8-10.8)
[2024-11-02 05:29] LABS: Blood Urea Nitrogen 8 mg/dl (7-17); Calcium 7.9 mg/dl (8.4-10.2); Carbon Dioxide 23 mmol/L (22-30); Chloride 110 mmol/L (98-107); Estimated Creatinine Clearance 60 ml/min; Glucose 170 mg/dl (70-99); Potassium 4.1 mmol/L (3.5-5.1); Sodium 141 mmol/L (135-145); eGFR > 60.00
[2024-11-02 08:26] LABS: Glucose - Point of Care 157 mg/dl (70-99)
[2024-11-02] MEDS: NOVOLOG FLEXPEN-LOW RESISTANCE 1 UNITS SC ×2 (09:35→17:55)
[2024-11-02] MEDS: COREG 6.25 MG PO ×2 (09:36→21:09)
[2024-11-02] MEDS: PROTONIX 40 MG PO (09:36)
[2024-11-02] MEDS: CYMBALTA DELAYED RELEASE 20 MG PO ×2 (09:36→21:19)
[2024-11-02] MEDS: FOLVITE 0.8 MG PO (09:36)
[2024-11-02] MEDS: NOVOLOG FLEXPEN SC (11:05)
--- NOTE | 2024-11-02 11:09 | W.PN.HOSP.TC ---
Today's Communication/Plan
-
Monitor bowel status
Monitor CBC
Advance diet per colorectal
OOB as tolerated
Assessment / Plan
Assessment / Plan
#Acute diverticular hemorrhage s/p sigmoidectomy (POD 1)
#Acute blood loss anemia superimposed on chronic anemia
#H/O GI bleed
-Admitted to IMU; CT with signs of acute sigmoid diverticular bleed; hemoglobin from 11.9-8.8
-Was considered for thrombectomy however unable to be performed with negative ABIGAIL arteriogram
-Status post 1 unit of PRBC on 10/29/2024 and 1 additional unit on 11/01 in OR; 2 units total
-Iron studies with mild SUELLEN; continue to trend CBC daily for now
-Transfuse hemoglobin <7, signs of active bleeding or symptom
-Continue home iron and folate supplement
-Colorectal surgery and GI following
-Advance diet at colorectal discretion
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
-No formal diagnosis, has had O2 desaturations while sleeping
-Was started on nightly O2 evening of 10/30
-No history of pulmonary hypertension
-OP follow-up with pulm for sleep study
#Essential hypertension
-No known history of hypertensive systemic disease
-Home regimen includes valsartan, held in the context of bleeding
-Blood pressure remained stable
#Atrial fibrillation
-Nonvalvular; Home regimen includes carvedilol, not on AC due to GI bleed Hx
-Status post left atrial appendage clip
-Stable on home regimen
#Hypothyroidism
-Unclear etiology, home regimen includes 75 mcg levothyroxine daily
-No signs or symptoms of abnormal thyroid function
#GERD
-No history of Malin's esophagus or erosive esophagitis
-Home regimen includes daily PPI
#Colitis
-Unspecified, suspect ulcerative colitis history for which she takes sulfasalazine currently
-Does have GIB related to diverticuli, no other signs of flare
#IDDM 2
-No known history of microvascular complication; recent A1c 10.8%
-No recent hemoglobin A1c, Home regimen includes 15 units Lantus
-Has been persistently hyperglycemic here with blood glucose in 300s
-Increased Lantus to 22 units nightly + 12 units aspart AC + ISS
-Blood glucose goal 140-180
-DM consult
#H/O CVA
-Likely related to history of AF, not on blood thinner due to GI bleed history
-Home regimen does not include antiplatelet medications or statin
Diet: CLD, advance per colorectal
Code status: DNR
DVT prophylaxis: SCDs
Anticipated Discharge: 24 - 48 hours
Subjective/Interval History
-
Date of Service: November 02, 2024
Seen and examined at the bedside. No acute events reported overnight. AFVSS this morning
Successful robotic sigmoidectomy, POD #1. White cell count increased postsurgery, hemoglobin stable
She has some mild incisional abdomen discomfort but otherwise denies any complaints. Has yet to pass flatus
Objective Data
-
Labs:
Laboratory Results
11/02/24
04:57
WBC 16.2 H
Hgb 9.3 L
Hct 28.1 L
Plt Count 201
Sodium 141
Potassium 4.1
Chloride 110 H
Carbon Dioxide 23
BUN 8
Creatinine 0.7
Glucose 170 H
Calcium 7.9 L
Vital Signs:
Vital Signs
Temp Pulse Resp BP Pulse Ox
97.6 F 92 21 147/74 95
11/02/24 07:59 11/02/24 09:36 11/02/24 06:00 11/02/24 09:36 11/02/24 06:00
I&O
11/01/24 11/02/24 11/03/24
06:59 06:59 06:59
Intake Total 1540 / 1540
Output Total 950 / 950
Balance 590 / 590
Review of Systems
-
History Source: Patient
All other systems: Reviewed and negative
Physical Exam
-
General: Well Developed, No Apparent Distress, Pain (Mild pain with movement) and Morbidly Obese
HEENT: Normocephalic, Atraumatic, Moist Mucous Membranes and Anicteric
Respiratory: Clear to Auscultation and Non Labored Respirations; Negative Accessory Resp Muscle Use
Cardiac: Regular Rhythm and S1/S2; Negative Murmur, Rub or Gallop
GI: Soft, Nondistended, Normal Bowel Sounds and Tender (Mild, incisional site; no peritoneal signs)
Musculoskeletal: No Clubbing, No Cyanosis and No Edema
Skin: Warm, Dry and Normal Turgor; Negative Rash
Neuro: AO x 3 and Nonfocal/Grossly Intact; Negative Tremors
[2024-11-02 13:28] LABS: Glucose - Point of Care 229 mg/dl (70-99)
--- NOTE | 2024-11-02 13:33 | PTCARENOTE ---
Assumed care of patient at beginning of this shift from previous RN; cannot verify accuracy of vital signs prior to 0700. Patient POD #1; riojas in place and draining paramjit/yellow. Worked with PT/OT and OOB to chair. Tolerating clear liquid diet;
increased to full liquid per surgery after they rounded on patient. Positive bowel sounds; patient passing flatus and had 2 small liquid brown bms. Receiving scheduled tylenol Q4h while awake with relief.
Pre-meal accu check prior to breakfast was 157; patient covered per insulin sliding scale. She ate approximately 75% of clears: with small apple juice and small jello. Due for 12 units mealtime insulin in addition to sliding scale. Patient continued
breakfast at 11:00. Reviewed with Dr Price who instructed to hold mealtime insulin for breakfast. Patient now eating full liquid lunch; accu check 229. See MAR for insulin administration.
See worklist for full assessment and vital signs.
[2024-11-02] MEDS: NOVOLOG FLEXPEN-LOW RESISTANCE 2 UNITS SC (13:56)
--- NOTE | 2024-11-02 13:56 | W.PN.CRS1 ---
Addendum entered and electronically signed by Elias Magaña MD 11/02/24 19:46:
I saw and examined the patient.
The CALCULATING MACHINE OPERATOR's note was reviewed and I agree with the note.
Comment:
ABD soft, nondistended, appropriately tender; incisions well-approximated without erythema or drainage
�Advance diet as tolerated
Original Note:
Today's Communication / Plan
-
ADAT
Pain management
Assessment/Plan
-
84 yo female with h/o chronic sigmoid diverticular dz and prior polypectomy with recurrent diverticular bleeding now POD #1 Robotic sigmoid colectomy with intracorporeal anastomosis
AFVSS
H/H stable post op
Reactive leukocytosis present
Tolerating clears with +flatus/bms
--Advance to FLD, tentative LRD by dinner if tolerating
--Remove riojas for voiding trial
--OOB/ambulate as able
--Trend labs
--Analgesics with schedule Tylenol and prn Tramadol/Dilaudid
--VTE ppx with Sq lovenox
Subjective Data
Procedure
11/01/2024 Robotic sigmoid colectomy with intracorporeal anastomosis.
Subjective Data
Date of Service: November 02, 2024
Patient seen and examined at bedside with Dr. Magaña. Denies n/v. Tolerating clears. Passing flatus and some small liquid stools. Minimal abd pain. OOB to chair.
Objective Data
-
Vital Signs
Temp Pulse Resp BP Pulse Ox
98.2 F 93 22 106/72 94
11/02/24 11:45 11/02/24 10:05 11/02/24 10:05 11/02/24 10:05 11/02/24 13:45
Intake & Output
11/01/24 11/02/24 11/03/24
06:59 06:59 06:59
Intake Total 1540 / 1540
Output Total 950 / 950
Balance 590 / 590
Intake:
Oral fluids 240 / 240
IV fluids (Total) 1300 / 1300
Normosol 100 / 100
Output:
Urine, [place] 950 / 950
Other:
Number of approximated MODERATE 1
amounts of urine
Lab Results
11/02/24 04:57
11/02/24 04:57
Physical Exam
-
General: No Acute Distress and AOx3
Abdomen: Soft, Distended (mild) and Tender (minimal, expected)
Skin: Warm and Dry
Incision: Other (well approximated, intact dermabond)
[2024-11-02] MEDS: NOVOLOG FLEXPEN 12 UNITS SC ×2 (14:21→17:56)
--- NOTE | 2024-11-02 14:24 | PTCARENOTE ---
Lunchtime accu check 229; sliding scale coverage given as ordered. Patient ate approximately 75%, including cream soup and sherbet; due for 12 units mealtime insulin. Reviewed with Dr Price; ok to give as ordered.
[2024-11-02 17:38] LABS: Glucose - Point of Care 175 mg/dl (70-99)
[2024-11-02] MEDS: LOVENOX 40 MG SC (17:54)
[2024-11-02] MEDS: LANTUS 0.22 UNITS SC (21:39)
[2024-11-02 21:49] LABS: Glucose - Point of Care 169 mg/dl (70-99)
[2024-11-03] VITALS (8 sets, daily range): BP systolic 137–180; BP diastolic 65–98
[2024-11-03] MEDS: TYLENOL PO (01:39)
--- NOTE | 2024-11-03 02:06 | PTCARENOTE ---
Assumed care of pt from alex RN. Pt aaox3. afib on monitor. 96% on 2L NC. Normosol infusing at 100 mL/hr. Pt OOB x2 with RW to beside commode. Pt had small liquid bowel movement. Hygiene completed including complete bed change and CHG wipes. Pt
now resting in bed with call edwards in reach.
[2024-11-03] MEDS: TYLENOL 650 MG PO ×5 (02:30→21:06)
[2024-11-03 04:25] LABS: % Basophils 0.5 % (0-2); % Immature Granulocytes 0.6 % (0-0.5); % Lymphocytes 12.8 % (20.5-51.1); % Monocytes 12.3 % (1.7-9.3); % Neutrophils 71.8 % (42.2-75.2); Absolute Basophils 0.1 10^3/uL (0-0.2); Absolute Eosinophils 0.2 10^3/uL (0-0.7); Absolute Immature Granulocytes 0.1 10^3/uL (0-0.05); Absolute Lymphocytes 1.5 10^3/uL (1.2-3.4); Absolute Monocytes 1.4 10^3/uL (0.1-0.6); Absolute Neutrophils 8.3 10^3/uL (1.4-6.5); Hematocrit 26.5 % (37.0-47.0); Hemoglobin 8.4 g/dL (12.0-16.0); Mean Corp Hgb Conc. 31.7 g/dL (33.0-37.0); Mean Corpuscular Hgb 31.2 pg (27.0-31.0); Mean Corpuscular Volume 98.5 fL (81.0-99.0); Mean Platelet Volume 12.2 fL (7.4-10.4); Nucleated Red Blood Cells % 0.3 %; Platelet Count 194 10^3/uL (130-400); Red Blood Cell Count 2.69 10^6/uL (4.20-5.40); Red Cell Dist. Width 15.3 % (11.5-14.5); White Blood Cell Count 11.6 10^3/uL (4.8-10.8)
[2024-11-03 04:34] LABS: Blood Urea Nitrogen 10 mg/dl (7-17); Calcium 8.3 mg/dl (8.4-10.2); Carbon Dioxide 28 mmol/L (22-30); Chloride 110 mmol/L (98-107); Estimated Creatinine Clearance 53 ml/min; Glucose 154 mg/dl (70-99); Potassium 4.1 mmol/L (3.5-5.1); Sodium 141 mmol/L (135-145); eGFR > 60.00
[2024-11-03] MEDS: SYNTHROID 75 MCG PO (06:34)
--- NOTE | 2024-11-03 06:34 | PTCARENOTE ---
Pt manual blood pressure noted to be 170/70. HR 91. Pt asymptomatic. JAVIER Pablo notified. This RN advised to continue with Q4 vital signs and to notify if SBP>180 or DBP>100. Plan of care ongoing.
--- NOTE | 2024-11-03 08:30 | PTCARENOTE ---
Patient received from night custodian. Patient resting comfortably in bed. AAO, VSS. No events noted overnight. No complaints of pain, scheduled Tylenol. Currently on Normosol @ 100 mL/hr. Currently on 2L N/C, will attempt to wean. No testing
scheduled at this time. Call edwards in reach.
[2024-11-03 09:05] LABS: Glucose - Point of Care 151 mg/dl (70-99)
[2024-11-03] MEDS: FOLVITE 0.8 MG PO (09:13)
[2024-11-03] MEDS: COREG 6.25 MG PO ×2 (09:13→18:10)
[2024-11-03] MEDS: PROTONIX 40 MG PO (09:14)
[2024-11-03] MEDS: CYMBALTA DELAYED RELEASE 20 MG PO ×2 (09:14→21:06)
[2024-11-03] MEDS: NOVOLOG FLEXPEN-LOW RESISTANCE 1 UNITS SC (09:14)
[2024-11-03] MEDS: NOVOLOG FLEXPEN 12 UNITS SC ×3 (09:15→17:30)
--- NOTE | 2024-11-03 10:54 | W.PN.HOSP.TC ---
Today's Communication/Plan
-
Trend CBC
Titrate insulin
Monitor bowel status
Encourage OOB
DG to telemetry
Assessment / Plan
Assessment / Plan
#Acute diverticular hemorrhage s/p sigmoidectomy (POD 1)
#Acute blood loss anemia superimposed on chronic anemia
#H/O GI bleed
-Admitted to IMU; CT with signs of acute sigmoid diverticular bleed; hemoglobin from 11.9-8.8
-Was considered for thrombectomy however unable to be performed with negative ABIGAIL arteriogram
-Status post 1 unit of PRBC on 10/29/2024 and 1 additional unit on 11/01 in OR; 2 units total
-Iron studies with mild SUELLEN; continue to trend CBC daily for now
-Transfuse hemoglobin <7, signs of active bleeding or symptom
-Continue home iron and folate supplement
-Colorectal surgery and GI following
-Tolerating regular diet
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
-No formal diagnosis, has had O2 desaturations while sleeping
-Was started on nightly O2 evening of 10/30
-No history of pulmonary hypertension
-OP follow-up with pulm for sleep study
#Essential hypertension
-No known history of hypertensive systemic disease
-Home regimen includes valsartan, held in the context of bleeding
-Blood pressure remained stable
#Atrial fibrillation
-Nonvalvular; Home regimen includes carvedilol, not on AC due to GI bleed Hx
-Status post left atrial appendage clip
-Stable on home regimen
#Hypothyroidism
-Unclear etiology, home regimen includes 75 mcg levothyroxine daily
-No signs or symptoms of abnormal thyroid function
#GERD
-No history of Malin's esophagus or erosive esophagitis
-Home regimen includes daily PPI
#Colitis
-Unspecified, suspect ulcerative colitis history for which she takes sulfasalazine currently
-Does have GIB related to diverticuli, no other signs of flare
#IDDM 2
-No known history of microvascular complication; recent A1c 10.8%
-No recent hemoglobin A1c, Home regimen includes 15 units Lantus
-Has been persistently hyperglycemic here with blood glucose in 300s
-Increased Lantus to 22 units nightly + 12 units aspart AC + ISS
-Blood glucose goal 140-180
-DM consult
#H/O CVA
-Likely related to history of AF, not on blood thinner due to GI bleed history
-Home regimen does not include antiplatelet medications or statin
Diet: CLD, advance per colorectal
Code status: DNR
DVT prophylaxis: SCDs
Disposition: Downgrade to telemetry. Patient does not want SNF placement, planning for home with or without home PT
Anticipated Discharge: 24 - 48 hours
Subjective/Interval History
-
Date of Service: November 03, 2024
Seen and examined at the bedside. No acute events reported overnight. AFVSS
POD 2 from robotic sigmoidectomy. Hemoglobin trend 9.7�9.3�8.4 since OR. Denies bleeding or abdomen pain
States she is feeling better today than yesterday. Denies any new complaints, states she is passing flatus but no BMs yet
Objective Data
-
Labs:
Laboratory Results
11/03/24
03:52
WBC 11.6 H
Hgb 8.4 L
Hct 26.5 L
Plt Count 194
Sodium 141
Potassium 4.1
Chloride 110 H
Carbon Dioxide 28
BUN 10
Creatinine 0.8
Glucose 154 H
Calcium 8.3 L
Vital Signs:
Vital Signs
Temp Pulse Resp BP Pulse Ox
98.1 F 84 15 144/55 93
11/03/24 07:25 11/03/24 09:13 11/03/24 02:30 11/03/24 09:13 11/03/24 09:52
I&O
11/02/24 11/03/24 11/04/24
06:59 06:59 06:59
Intake Total 1540 / 1540 3200 / 3200
Output Total 950 / 950 450 / 450
Balance 590 / 590 2750 / 2750
Review of Systems
-
History Source: Patient
All other systems: Reviewed and negative
Physical Exam
-
General: Well Developed, No Apparent Distress, Comfortable and Morbidly Obese
HEENT: Normocephalic, Atraumatic, Moist Mucous Membranes and Anicteric
Respiratory: Clear to Auscultation and Non Labored Respirations; Negative Accessory Resp Muscle Use
Cardiac: S1/S2 and Irregular Rhythm; Negative Murmur, Rub, Gallop or Tachycardic
GI: Soft, Nontender, Nondistended and Normal Bowel Sounds
Musculoskeletal: No Clubbing, No Cyanosis and No Edema
Skin: Warm, Dry and Normal Turgor; Negative Rash
Neuro: AO x 3 and Nonfocal/Grossly Intact; Negative Tremors
Psych: Calm
Data Reviewed
-
Labs: Labs Reviewed by me and Discussed with Patient
--- NOTE | 2024-11-03 11:18 | W.PN.CRS1 ---
Addendum entered and electronically signed by Elias Magaña MD 11/03/24 16:17:
I saw and examined the patient.
The PERSONAL CLOTHING LAUNDRY AIDE's note was reviewed and I agree with the note.
Original Note:
Today's Communication / Plan
-
Reg diet
Assessment/Plan
-
84 yo female with h/o chronic sigmoid diverticular dz and prior polypectomy with recurrent diverticular bleeding now POD #2 Robotic sigmoid colectomy with intracorporeal anastomosis
AFVSS, some hypoxia with weaning off O2
H/H with slight drift, but relatively stable and no signs of active bleeding
Reactive leukocytosis present and trending down
Tolerating LRD
--Continue LRD
--OOB/ambulate as able. PT following
--Analgesics with schedule Tylenol and prn Tramadol/Dilaudid
--VTE ppx with Sq lovenox
Ok for d/c from surgical standpoint once medically ready
Subjective Data
Procedure
11/01/2024 Robotic sigmoid colectomy with intracorporeal anastomosis.
Subjective Data
Date of Service: November 03, 2024
Patient seen and examined at bedside with Dr. Magaña. Denies n/v. Tolerating diet. Some soreness to abd with movement. Passing gas, no bm today. Denies bloating/distention. OOB to chair.
Objective Data
-
Vital Signs
Temp Pulse Resp BP Pulse Ox
98.1 F 84 15 144/55 93
11/03/24 07:25 11/03/24 09:13 11/03/24 02:30 11/03/24 09:13 11/03/24 09:52
Intake & Output
11/02/24 11/03/24 11/04/24
06:59 06:59 06:59
Intake Total 1540 / 1540 3200 / 3200
Output Total 950 / 950 450 / 450
Balance 590 / 590 2750 / 2750
Intake:
Oral fluids 240 / 240 1000 / 1000
IV fluids (Total) 1300 / 1300 2200 / 2200
Normosol 100 / 100
Output:
Urine, Gates 950 / 950 450 / 450
Other:
Number of approximated LARGE 1 1
amounts of urine
Lab Results
11/03/24 03:52
11/03/24 03:52
Physical Exam
-
General: No Acute Distress and AOx3
Abdomen: Soft, Distended (mild) and Tender (minimal, expected)
Skin: Warm and Dry
Incision: Other (well approximated, intact dermabond)
[2024-11-03] MEDS: NORMOSOL-R/PLASMALYTE-A IV (12:25)
[2024-11-03 13:01] LABS: Glucose - Point of Care 231 mg/dl (70-99)
[2024-11-03] MEDS: NOVOLOG FLEXPEN-LOW RESISTANCE 2 UNITS SC ×2 (13:55→17:29)
--- NOTE | 2024-11-03 14:36 | PTCARENOTE ---
Called [facility] to give report. RN not assigned to patient yet as room just became clean, awaiting return phone call.
--- NOTE | 2024-11-03 15:45 | PTCARENOTE ---
Report called to Stephenie [facility].
--- NOTE | 2024-11-03 16:49 | PTCARENOTE ---
Received into room 317-2. AOx3. Placed on telemetry box #1, afib, HR 80s. Assisted to BSC. Discussed plan of care. Encouraged to make needs known.
[2024-11-03 16:59] LABS: Glucose - Point of Care 222 mg/dl (70-99)
[2024-11-03] MEDS: LOVENOX 40 MG SC (17:29)
[2024-11-03 21:05] LABS: Glucose - Point of Care 190 mg/dl (70-99)
[2024-11-03] MEDS: LANTUS 0.22 UNITS SC (21:07)
[2024-11-03 22:18] LABS: Glucose - Point of Care 164 mg/dl (70-99)
[2024-11-04] MEDS: TYLENOL PO ×2 (00:59→04:19)
[2024-11-04 03:00] VITALS: BP 160/89
[2024-11-04 04:57] LABS: % Basophils 0.6 % (0-2); % Eosinophils 5.6 % (0-6); % Immature Granulocytes 0.5 % (0-0.5); % Lymphocytes 15.3 % (20.5-51.1); % Monocytes 14.2 % (1.7-9.3); % Neutrophils 63.8 % (42.2-75.2); Absolute Basophils 0.1 10^3/uL (0-0.2); Absolute Eosinophils 0.5 10^3/uL (0-0.7); Absolute Immature Granulocytes 0.1 10^3/uL (0-0.05); Absolute Lymphocytes 1.4 10^3/uL (1.2-3.4); Absolute Monocytes 1.3 10^3/uL (0.1-0.6); Hematocrit 26.4 % (37.0-47.0); Hemoglobin 8.2 g/dL (12.0-16.0); Mean Corp Hgb Conc. 31.1 g/dL (33.0-37.0); Mean Corpuscular Hgb 30.6 pg (27.0-31.0); Mean Corpuscular Volume 98.5 fL (81.0-99.0); Mean Platelet Volume 12.2 fL (7.4-10.4); Nucleated Red Blood Cells % 0.4 %; Platelet Count 222 10^3/uL (130-400); Red Blood Cell Count 2.68 10^6/uL (4.20-5.40); White Blood Cell Count 9.4 10^3/uL (4.8-10.8)
[2024-11-04] MEDS: SYNTHROID 75 MCG PO (05:26)
[2024-11-04 07:15] VITALS: BP 167/79
--- NOTE | 2024-11-04 08:12 | PN.DE.MGMTRT ---
Insulin Management
- -
11/04/2024: Diabetes Management Follow up
84-year-old female well known to me from her last hospital visit. Patient presented to the ED on 10/28/2024 c/o multiple episodes of bloody diarrhea.
PMH: A- Fib, CAD, HTN, HLD, Hypothyroidism, Ulcerative colitis, rectal tumor resected March 2023, recurrent GIB and T2DM, A1C 10.8%, Cr 0.9, eGFR>60.
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 She was noted for Hyperglycemia on admission and was started on basal/bolus: AC NovoLog 8 units and Lantus 20 units @ HS. Pt lives alone but Dtr and Grand-Dtr live near by, she was confident that she
would be fine managing her diabetes meds at home during her last admission.
Pt awake, alert, oriented, sitting up @ edge of bed, offers no complaints, able to discuss diabetes care plan
POD #3 Robotic sigmoid colectomy with intracorporeal anastomosis. Low Residue Diet was started yesterday and pt is tolerating it well.
Received Lantus 22 units @ HS, FBG 152 this AM. Will cont same dose tonight.
11/03 Premeal glucose 151 to 231, requiring 1-2 units of additional corrective insulin with meals
Will increase AC NovoLog to 14 units. Cont low corrective with meals
Discussed current A1C and emphasized importance of optimal glucose control to maximize healing and to reduce risk of diabetes related complications.
Pt verbalized understanding and was agreeable to meal time insulin regimen.
Will cont to monitor and make further insulin adjustments if necessary.
Diabetes History
- -
Type of Diabetes: 2 requiring insulin
Pre-Admission Diabetes Regimen
Lab Results
Hemoglobin A1c 10.8 % (4.0-5.6) H 10/29/24 05:57
Insulin Pump Settings
IP Diabetes Regimen
11/03/24 11/03/24 11/03/24
08:54 12:50 16:57
POC Glucose 151 H 231 H 222 H
11/03/24 11/03/24
21:04 22:07
POC Glucose 190 H 164 H
Meal type: Dinner
Meal type: Lunch
Meal type: Breakfast
Amount consumed: 100%
Patient Education
[2024-11-04] MEDS: CYMBALTA DELAYED RELEASE 20 MG PO (08:37)
[2024-11-04] MEDS: THERAGRAN 1 TABLET PO (08:37)
[2024-11-04] MEDS: DIOVAN 160 MG PO (08:37)
[2024-11-04] MEDS: COREG 6.25 MG PO (08:38)
[2024-11-04] MEDS: VITAMIN D3 (cholecalciferol) 25 MCG PO (08:38)
[2024-11-04] MEDS: PROTONIX 40 MG PO (08:38)
[2024-11-04] MEDS: FOLVITE 0.8 MG PO (08:38)
[2024-11-04] MEDS: TYLENOL 650 MG PO ×2 (08:38→14:40)
[2024-11-04 08:50] LABS: Glucose - Point of Care 152 mg/dl (70-99)
--- NOTE | 2024-11-04 08:58 | W.PN.CRS1 ---
Addendum entered and electronically signed by Elias Magaña MD 11/04/24 12:15:
Elevated CRP noted. Currently, no clinical concerns for infection/inflammation. CRP can frequently lag behind WBC and be falsely elevated postoperatively.
Original Note:
Today's Communication / Plan
-
okay for d/c from our perspective once bp controlled
follow up in 2 weeks
Assessment/Plan
-
84 yo female with h/o chronic sigmoid diverticular dz and prior polypectomy with recurrent diverticular bleeding now POD #3 Robotic sigmoid colectomy with intracorporeal anastomosis
afebrile, HTN overnight 160's-170's/80's
Hgb: 8.2 (8.4), WBC 9.4
Tolerating LRD
--Continue LRD
--OOB/ambulate as able. PT following
--Analgesics with schedule Tylenol and prn Tramadol/Dilaudid
--VTE ppx with Sq lovenox
--okay for discharge from our perspective when BP controlled. Follow up in the office in [address] Santamaria. Discussed with patient.
Subjective Data
Procedure
11/01/2024 Robotic sigmoid colectomy with intracorporeal anastomosis.
Subjective Data
Date of Service: November 04, 2024
Patient states she is having liquid bowel movements and flatus. Her pain is controlled. She has no bleeding. Her only concern is her blood pressure but otherwise, she is doing well.
Objective Data
-
Vital Signs
Temp Pulse Resp BP Pulse Ox
97.8 F 97 18 163/85 96
11/04/24 03:00 11/04/24 08:37 11/04/24 03:00 11/04/24 08:37 11/04/24 03:00
Intake & Output
11/03/24 11/04/24 11/05/24
06:59 06:59 06:59
Intake Total 3200 / 3200 680 / 680
Output Total 450 / 450 300 / 300
Balance 2750 / 2750 380 / 380
Intake:
Oral fluids 1000 / 1000 480 / 480
IV fluids (Total) 2200 / 2200 200 / 200
Output:
Urine, Gates 450 / 450
Urine, Voided 300 / 300
Other:
Number of approximated SMALL 2
amounts of urine
Number of approximated LARGE 1 1
amounts of urine
Lab Results
11/04/24 04:40
11/03/24 03:52
Physical Exam
-
General: No Acute Distress and AOx3
Abdomen: Soft, Non Distended and Non Tender
Skin: Warm and Dry
Incision: Clear, Dry, Intact
[2024-11-04] MEDS: NOVOLOG FLEXPEN-LOW RESISTANCE 1 UNITS SC (09:55)
[2024-11-04] MEDS: NOVOLOG FLEXPEN 12 UNITS SC (09:55)
[2024-11-04] MEDS: FERRLECIT 110 MG IV (10:27)
[2024-11-04 10:50] VITALS: BP 124/72
[2024-11-04 12:08] LABS: Glucose - Point of Care 229 mg/dl (70-99)
--- NOTE | 2024-11-04 12:25 | CM ---
Addendum entered by Akila Hopper RN 11/04/24 14:05:
entered order for discharge.
Pt agrees with IMM and dcd today to home.Offered VN she declined need.
Dgt Tonya will drive her home
PLAN Home no needs
Original Note:
sp sigmoid colectomy .
Pt needed blood transfusion.
Pt declined SNF at dc.
PT OT indicated VN .
PLAN Home with VN if accepted
--- NOTE | 2024-11-04 12:39 | W.PN.HOSP.TC ---
Today's Communication/Plan
-
IV iron x 1
Oral iron at DC
Discharge with PCP and colorectal follow up
Assessment / Plan
Assessment / Plan
#Acute diverticular hemorrhage s/p sigmoidectomy (POD 1)
#Acute blood loss anemia superimposed on chronic anemia
#H/O GI bleed
-Admitted to IMU; CT with signs of acute sigmoid diverticular bleed; hemoglobin from 11.9-8.8
-Was considered for thrombectomy however unable to be performed with negative ABIGAIL arteriogram
-Status post 1 unit of PRBC on 10/29/2024 and 1 additional unit on 11/01 in OR; 2 units total
-Iron studies with mild SUELLEN; continue to trend CBC daily for now
-Transfuse hemoglobin <7, signs of active bleeding or symptom
-Provide 1 dose of IV iron today (11/04/2024)
-Continue home iron and folate supplement
-Colorectal surgery and GI following
-Tolerating regular diet
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
-No formal diagnosis, has had O2 desaturations while sleeping
-Was started on nightly O2 evening of 10/30
-No history of pulmonary hypertension
-OP follow-up with pulm for sleep study
#Essential hypertension
-No known history of hypertensive systemic disease
-Home regimen includes valsartan, held in the context of bleeding
-Blood pressure remained stable
#Atrial fibrillation
-Nonvalvular; Home regimen includes carvedilol, not on AC due to GI bleed Hx
-Status post left atrial appendage clip
-Stable on home regimen
#Hypothyroidism
-Unclear etiology, home regimen includes 75 mcg levothyroxine daily
-No signs or symptoms of abnormal thyroid function
#GERD
-No history of Malin's esophagus or erosive esophagitis
-Home regimen includes daily PPI
#Colitis
-Unspecified, suspect ulcerative colitis history for which she takes sulfasalazine currently
-Does have GIB related to diverticuli, no other signs of flare
#IDDM 2
-No known history of microvascular complication; recent A1c 10.8%
-No recent hemoglobin A1c, Home regimen includes 15 units Lantus
-Has been persistently hyperglycemic here with blood glucose in 300s
-Increased Lantus to 22 units nightly + 12 units aspart AC + ISS
-Blood glucose goal 140-180
-DM consult
#H/O CVA
-Likely related to history of AF, not on blood thinner due to GI bleed history
-Home regimen does not include antiplatelet medications or statin
Diet: CLD, advance per colorectal
Code status: DNR
DVT prophylaxis: SCDs
Anticipated Discharge: Today
Subjective/Interval History
-
Date of Service: November 04, 2024
Seen and examined at the bedside. No acute events reported overnight. AFVSS
Hemoglobin 8.7-8.2 over the last 2 days. Patient had bowel movement today and denies any signs of bleeding
She states she feels well and otherwise ready for discharge
Objective Data
-
Labs:
Laboratory Results
11/04/24
04:40
WBC 9.4
Hgb 8.2 L
Hct 26.4 L
Plt Count 222
Vital Signs:
Vital Signs
Temp Pulse Resp BP Pulse Ox
98.3 F 78 18 124/72 97
11/04/24 10:50 11/04/24 10:50 11/04/24 10:50 11/04/24 10:50 11/04/24 10:58
I&O
11/03/24 11/04/24 11/05/24
06:59 06:59 06:59
Intake Total 3200 / 3200 680 / 680
Output Total 450 / 450 300 / 300
Balance 2750 / 2750 380 / 380
Review of Systems
-
History Source: Patient
All other systems: Reviewed and negative
Physical Exam
-
General: Well Developed, No Apparent Distress, Comfortable and Morbidly Obese
HEENT: Normocephalic, Atraumatic, Moist Mucous Membranes and Anicteric
Respiratory: Clear to Auscultation and Non Labored Respirations; Negative Accessory Resp Muscle Use
Cardiac: S1/S2 and Irregular Rhythm; Negative Murmur, Rub or Gallop
GI: Soft, Nontender, Nondistended and Normal Bowel Sounds
Musculoskeletal: No Clubbing, No Cyanosis and No Edema
Skin: Warm, Dry and Normal Turgor; Negative Rash
Neuro: AO x 3 and Nonfocal/Grossly Intact
Psych: Calm
Data Reviewed
-
Labs: Labs Reviewed by me and Discussed with Patient
[2024-11-04] MEDS: NOVOLOG FLEXPEN 14 UNITS SC (14:39)
[2024-11-04] MEDS: NOVOLOG FLEXPEN-LOW RESISTANCE 2 UNITS SC (14:40)
[2024-11-04] MEDS: NOVOLOG FLEXPEN SC (14:44)
[2024-11-04 15:15] VITALS: BP 153/65
--- NOTE | 2024-11-05 15:34 | W.DCSUMMARY ---
Discharge Summary
Discharge Data
Date of Admission: 10/28/24
Date of Discharge: 11/04/24
Total time spent discharging patient (in min): 31
-
Pending Results: No
Hospital Course
Discharging Physician :�Marcel Price DO
Disposition :���� Home care
Principal Discharge diagnosis :�
Status post robotic laparoscopic sigmoidectomy
Acute blood loss anemia due to diverticular bleed
History of recurrent diverticular bleed
Poorly controlled IDDM 2 (A1c 10.8%)
Chronic Discharge diagnosis :�
Persistent AF s/p SHARON clip no longer on AC
IDDM
Hypothyroidism
Chronic anemia
Colitis on sulfasalazine
Hypertension
H/O CVA
H/O diverticular bleed
Hospital Course :�
84-year-old female that presented to the hospital with the complaint of rectal bleeding. Complaint of bloody diarrhea that awoke her from sleep on day of arrival. Associated with mild lower abdomen discomfort. Upon arrival was hemodynamically
stable. CT scan showed acute active diverticular hemorrhage in the mid sigmoid colon with signs of severe diverticulosis throughout the sigmoid colon, and unchanged 2.8 cm splenic mass. IR was consulted for possible embolectomy however inferior
mesenteric arteriogram was unremarkable and procedure was unable to be performed. Patient was admitted to IMU and blood counts were intensively monitored. Required 2 units of packed red blood cells while in the hospital. Iron studies with
significant iron deficiency anemia. Evaluated by gastroenterology who did not recommend inpatient colonoscopy. Blood counts with persistent slow drop after blood. Consulted colorectal surgery who performed robotic laparoscopic sigmoidectomy on
11/01/2024. After the procedure the patient was monitored and diet was escalated back to regular without issue. Blood counts stabilized. Was started on IV iron and transition to oral ferrous Maltol due to previous GI reactions to ferrous sulfate.
Was provided with CBC for 1 week after discharge from the hospital to recheck blood counts
Consultants :
Colorectal surgery: Pj Santamaria MD
Gastroenterology: Travis Coker MD
Important imaging findings :�
CT A/P with IV contrast (10/28/2024)
IMPRESSION:
1. ACUTE ACTIVE DIVERTICULAR HEMORRHAGE in the MID SIGMOID COLON.
2. Severe diverticulosis throughout the sigmoid colon.
3. Moderate to severe chronic bilateral renal disease.
4. Large bilateral nonobstructing intrarenal calculi.
5. 2.8 cm splenic mass which appears unchanged.
6. 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
7. Previous bilateral posterior instrumentation at L4/L5.
Procedure findings :�
Robotic sigmoid colectomy with intracorporeal anastomosis (11/01/2024)
DESCRIPTION OF FINDINGS:
1. Chronic sigmoid diverticular disease.
2. Ink at the rectosigmoid junction from her previous polypresection (included within the specimen).
3. 28 mm EEA.
4. Normal leak test.
5. 1 unit of blood transfused for preoperative anemia.
Follow-up :
PCP in 1 to 2 weeks from discharge
Colorectal surgery 2 weeks after addition
Repeat CBC 1 week after discharge
Discharge Plan
-
Patient Disposition: Home (Routine Discharge)
Discharge Diagnosis/Procedures: Status post robotic sigmoidectomy
Sigmoid diverticulosis with bleeding
Acute blood loss anemia s/p 2 units PRBC
Iron deficiency anemia
Insulin-dependent diabetes mellitus
Condition: Fair
Diet: Low Residue and Diabetic, Carb Controlled
Activity: No strenuous activity
Additional Activity: No lifting over 10lbs (gallon of milk)
Driving Restrictions: No driving for 1 week
Bathing Restrictions: OK to Shower
Blood Work: CBC 1 week after discharge to recheck blood counts
Wound Care: Allow glue to naturally fall off. Do not pick at incisions.
Activity Restrictions/Additional Instructions:
Follow-up with your family doctor within 1 week of discharge from hospital
Contact colorectal surgeon to schedule follow-up appointment within 2 weeks from discharge
See monitor your home blood sugars at mealtimes and nightly, write down the numbers in a book, and take them with you to your next family doctor office visit
Instructions: Low-fiber diet
Referrals:
Savage Santamaria MD [Active] - in two weeks
Connor Roman MD [Family Provider] -
Additional Discharge Medication Instructions: Acetaminophen (Tylenol) as needed for pain. Maximum dose is 4,000mg in 24 hours.
Increased insulin glargine to 22 units nightly
Start insulin aspart 12 units before meals (breakfast/lunch/dinner)
Start ferric maltol (Accufer) 30 mg twice daily for 1 month
Prescriptions:
New
insulin glargine [Lantus Solostar U-100 Insulin] 100 unit/mL (3 mL) insulin pen
22 unit SC QPM 30 Days Qty: 6.6 0RF
insulin aspart U-100 100 unit/mL (3 mL) Insulin Pen
12 unit SC AC 30 Days Qty: 10.8 0RF
Accrufer 30 mg capsule
30 mg PO BID 30 Days Qty: 60 0RF
Continued
therapeutic multivitamin Tablet
1 tab PO DAILY
cholecalciferol (vitamin D3) [Vitamin D3] 25 mcg (1,000 unit) Capsule
25 mcg PO DAILY
sulfasalazine 500 MG tablet
1,000 mg PO HS
coenzyme Q10 [CoQ-10] 100 mg Capsule
200 mg PO DAILY
folic acid 800 mcg Tablet
0.8 mg PO DAILY
valsartan 160 mg Tablet
160 mg PO DAILY
omeprazole 40 mg Capsule,Delayed Release(Dr/Ec)
40 mg PO DAILY
alpha lipoic acid 100 mg Capsule
100 mg PO DAILY
turmeric 400 mg Capsule
500 mg PO DAILY
magnesium glycinate 100 mg magnesium Capsule
600 mg PO DAILY Qty: 0
Nervive tablet
1 tab PO DAILY
levothyroxine 75 MCG tablet
75 mcg PO DAILY
carvedilol [Coreg] 6.25 mg Tablet
6.25 mg PO BID
duloxetine 20 MG capsule,delayed release(DR/EC)
20 mg PO BID Qty: 60 0RF
Discontinued
[facility] 40-10-5-3.3 mg Tablet
1 tab PO DAILY
ferrous sulfate 325 mg (65 mg iron) tablet
325 mg PO Q48H Qty: 14 1RF
insulin glargine-yfgn 100 unit/mL (3 mL) insulin pen
15 unit SC HS
Discharge Orders:
Discharge Patient (As Directed); Ordered 11/04/24
Ordered By: Marcel Price
Discharge Date and Time
Discharge Date/Time: 11/04/24 15:52
Print Language: DANISH
== END 2024-11-04 15:52 | disposition home or self-care (01) | DRG 330 ==
LOC: 3 WEST ACU 23:48
PROVIDERS: Emergency Medicine; Nurse Practitioner Adult Health; Nurse Practitioner Family; Physician Assistant; Radiology Diagnostic Radiology; Surgery; ADMITTING PHYSICIAN Hospitalist; ATTENDING PHYSICIAN Internal Medicine; CONSULT PHYSICIAN Internal Medicine Gastroenterology; CONSULT PHYSICIAN Surgery; EMERGENCY PHYSICIAN Emergency Medicine; FAMILY PHYSICIAN Family Medicine
PROC: 30233N1 Transfusion of Nonautologous Red Blood Cells into Peripheral Vein, Percutaneous Approach (ICD-10-PCS; 2024-10-29)
PROC: 8E0W4CZ Robotic Assisted Procedure of Trunk Region, Percutaneous Endoscopic Approach (ICD-10-PCS; 2024-11-01)
PROC: 0DTN4ZZ Resection of Sigmoid Colon, Percutaneous Endoscopic Approach (ICD-10-PCS; 2024-11-01)
DX: K57.31 Diverticulosis of large intestine without perforation or abscess with bleeding (principal); D62 Acute posthemorrhagic anemia; K51.90 Ulcerative colitis, unspecified, without complications; Z68.41 Body mass index [BMI] 40.0-44.9, adult; E11.9 Type 2 diabetes mellitus without complications; E78.00 Pure hypercholesterolemia, unspecified; I10 Essential (primary) hypertension; I48.0 Paroxysmal atrial fibrillation; E03.9 Hypothyroidism, unspecified; K21.9 Gastro-esophageal reflux disease without esophagitis; N20.0 Calculus of kidney; R16.1 Splenomegaly, not elsewhere classified; G47.33 Obstructive sleep apnea (adult) (pediatric); E66.01 Morbid (severe) obesity due to excess calories; R91.1 Solitary pulmonary nodule; M19.90 Unspecified osteoarthritis, unspecified site; E87.5 Hyperkalemia; R79.82 Elevated C-reactive protein (CRP); Z60.2 Problems related to living alone; Z66 Do not resuscitate; Z87.891 Personal history of nicotine dependence; Z87.19 Personal history of other diseases of the digestive system; Z79.4 Long term (current) use of insulin; Z86.73 Personal history of transient ischemic attack (TIA), and cerebral infarction without residual deficits; Z88.6 Allergy status to analgesic agent; Z88.1 Allergy status to other antibiotic agents; Z88.5 Allergy status to narcotic agent; Z88.0 Allergy status to penicillin; Z91.048 Other nonmedicinal substance allergy status; Z79.890 Hormone replacement therapy; Z79.82 Long term (current) use of aspirin; Z86.0100 Personal history of colon polyps, unspecified; Z80.0 Family history of malignant neoplasm of digestive organs; Z91.040 Latex allergy status; Z98.1 Arthrodesis status
CPT/HCPCS: 88307; 36245; 74174; 75726; 76937; 80048; 80053; 82728; 82947; 82962; 83036; 83540; 83550; 83690; 83735; 85014; 85018; 85025; 85027; 85610; 85730; 86140; 86850; 86900; 86901; 86920; 86922; 96360; 97116; 97163; 97167; 97530; 97535; 99152; 99153; 99291; C1769; J1335; J2916; P9016; Q9967